=== PATIENT | female | born 1965 | race Hispanic/Latino ===

== ENCOUNTER 2025-01-15 12:05 | Inpatient (IN) | payer MEDICAID ==
[~2025-01-15] VITALS: Ht 157.5 cm; Wt 72.8 kg
--- NOTE | 2025-01-15 12:48 | ERN ---
General Chief Complaint: Tooth Ache/Pain Stated Complaint: TOOTHACHE Time Seen by MD: 12:08 Source: patient History of Present Illness Initial Comments PATIENT IS A 59-YEAR-OLD FEMALE COMING IN COMPLAINING OF RIGHT FACIAL PAIN. PATIENT IS A IS A RECENTLY SEEN BY DENTIST AND SENT IN DUE TO AN INFECTED MOLAR. Allergies: Coded Allergies: No Known Drug Allergies (Unverified Allergy, Unknown, 01/15/25) Past Medical History Past Medical History: Cancer, Diabetes-Type II, High Cholesterol, Hypertension Past Surgical History: Other Surgical History Other: LEFT NEPHRECTOMY ROS Dictation CONSTITUTIONAL: NO CHILLS, NO FEVER, NO WEAKNESS, NO DIAPHORESIS, NO MALAISE. HEAD/FACE: NO SIGNS OF TRAUMA. EENT: NO EYE PAIN, NO BLURRED VISION, NO TEARING, NO DOUBLE VISION, NO EAR PAIN, NO EAR DISCHARGE, NO NOSE PAIN, NO NASAL CONGESTION, NO THROAT PAIN, NO THROAT SWELLING, MOUTH PAIN. RESPIRATORY: NO COUGH, NO ORTHOPNEA, NO SOB, NO STRIDOR, NO WHEEZING. CARDIOVASCULAR: NO CHEST PAIN, NO EDEMA, NO PALPITATIONS, NO SYNCOPE. GASTROINTESTINAL/ABDOMINAL: NO ABDOMINAL PAIN, NO CONSTIPATION, NO DIARRHEA, NO NAUSEA, NO VOMITING. GENITOURINARY: NO ABNORMAL DISCHARGE, NO DYSURIA, NO FREQUENT URINATION, NO HEMATURIA. NO COMPLAINTS OF PAIN IN THE GENITALS. MUSCULOSKELETAL: NO BACK PAIN, NO GOUT, NO JOINT PAIN, NO JOINT SWELLING, NO MUSCLE PAIN, NO MUSCLE STIFFNESS, NO NECK PAIN. INTEGUMENTARY: NO CHANGE IN COLOR, NO CHANGE IN HAIR/NAILS, NO DRYNESS, NO LESION, NO LUMPS, NO RASH. NEUROLOGICAL/PSYCH: NO ANXIETY, NOT DEPRESSED, NO EMOTIONAL PROBLEM, NO HEADACHE, NO NUMBNESS, NO PRE-EXISTING DEFICIT, NO HISTORY OF SEIZURES, NO TREMORS, NO WEAKNESS. HEMATOLOGIC/LYMPHATIC: NOT ANEMIC, NO HISTORY OF BLOOD CLOTS, NO APPARENT BLEEDING, NO BRUISING, GLANDS NOT SWOLLEN. ALL SYSTEMS NEGATIVE, EXCEPT NOTED. Physical Exam Physical Exam Dictation VITAL SIGNS: REVIEWED. GENERAL APPEARANCE: ALERT, ORIENTED X3, NO ACUTE DISTRESS, OBESE. HEAD AND FACE: NON-TRAUMATIC. EYES: PERRL, PINK CONJUNCTIVAS, EYELID NO TRAUMA, ANTERIOR CHAMBER CLEAR. EARS: PINNAS INTACT AND NO SIGNS OF TRAUMA OR ERYTHEMA. EAR CANALS CLEAR AND NO DISCHARGE. TMS NO ERYTHEMA. NOSE: NO DISCHARGE, NO BLEEDING. OROPHARYNX: MOUTH NORMAL, TEETH 1. INFECTED, FRACTURED , TONGUE PINK. PHARYNX CLEAR, NO ERYTHEMA. TONSILS NO EXUDATES, NO ABSCESSES NOTED. MUCOUS MEMBRANE MOIST. NECK: SUPPLE, NON-TENDER, NO THYROMEGALY, NO MASSES, NO JVD, NO BRUITS. BREAST: DEFERRED. CHEST: NO TENDERNESS, NO CREPITUS, NO PARADOXICAL MOVEMENT, NO RETRACTIONS. LUNGS: CLEAR, WELL-VENTILATED, SYMMETRIC, NO RALES, NO WHEEZING, NO RHONCHI, NO STRIDOR, GOOD BREATH SOUNDS BILATERALLY. HEART: REGULAR RATE, REGULAR RHYTHM, NO MURMUR, NO GALLOPS. VASCULAR: NO PERIPHERAL EDEMA. ABDOMEN: SOFT, POSITIVE BOWEL SOUNDS, NONDISTENDED, NO GUARDING, NONTENDER, NO REBOUND, NO MASSES NO HEPATOMEGALY, NO SPLENOMEGALY, NO WHALEN'S SIGN, NO HERNIAS. RECTAL: DEFERRED. GENITAL: DEFERRED. NEUROLOGICAL: NORMAL SPEECH, GROSS MOTOR FUNCTION INTACT, GROSS SENSORY FU NCTION INTACT. MUSCULOSKELETAL: NECK NONTENDER, FULL RANGE OF MOTION, BACK NONTENDER, FULL RANGE OF MOTION. EXTREMITIES: NONTENDER, FULL RANGE OF MOTION. SKIN: COLOR PINK, DRY, NO TURGOR, NO RASH, NO LACERATIONS, NO ABRASIONS, NO CONTUSIONS. LYMPHATICS: DEFERRED. Results Laboratory and Microbiology Lab and Micro Result Laboratory Tests Test 01/15/25 12:48 White Blood Count 8.6 K/uL (4.8-10.8) Red Blood Count 3.71 MIL/uL (4.00-5.50) L Hemoglobin 12.0 g/dL (12.0-16.0) Hematocrit 35.4 % (36-48) L Mean Corpuscular Volume 95.4 fL (79-99) Mean Corpuscular Hemoglobin 32.3 pg (27.0-33.0) Mean Corpuscular Hemoglobin Concent 33.9 g/dL (32.0-36.0) Red Cell Distribution Width 13.6 % (11.0-15.5) Platelet Count 197 K/uL (130-400) Mean Platelet Volume 9.7 fL (7.5-10.5) Immature Granulocyte % (Auto) 0.2 % (0-1) Neutrophils (%) (Auto) 80.3 % (40.0-77.0) H Lymphocytes (%) (Auto) 12.9 % (21.0-51.0) L Monocytes (%) (Auto) 5.9 % (3.0-13.0) Eosinophils (%) (Auto) 0.5 % (0.0-8.0) Basophils (%) (Auto) 0.2 % (0.0-5.0) Neutrophils # (Auto) 6.9 K/uL (1.8-7.7) Lymphocytes # (Auto) 1.1 K/uL (1.0-4.8) Monocytes # (Auto) 0.5 K/uL (0.1-1.0) Eosinophils # (Auto) 0.04 K/uL (0.00-0.70) Basophils # (Auto) 0.02 K/uL (0.00-0.20) Absolute Immature Granulocyte (auto 0.02 K/uL (0-1) Nucleated Red Blood Cells 0.0 % (0.0-0.19) Sodium Level 135 mmol/L (136-145) L Potassium Level 4.1 mmol/L (3.5-5.1) Chloride Level 101 mmol/L (101-111) Carbon Dioxide Level 20 mmol/L (21-32) L Blood Urea Nitrogen 54 mg/dL (7-18) H Creatinine 3.6 mg/dL (0.5-1.0) H Glomerular Filtration Rate Calc 14 mL/min (>90) Random Glucose 270 mg/dL (70-105) H Total Calcium 8.6 mg/dL (8.5-10.1) Labs Reviewed?: Yes MDM MDM: DIFFERENTIAL DIAGNOSIS: PERIODONTAL DISEASE, TIERNEY, RATIONALE: TESTS CONSIDERED AND ORDERED SECONDARY TO SHARED DECISION MAKING INCLUDE: PREVIOUS OUTSIDE RECORDS REVIEWED: OLD ER VISITS. RISK OF COMPLICATION AND/OR MORBIDITY OR MORTALITY OF PATIENT MANAGEMENT: NONE MEDICATIONS-PER MEDICATION RECONCILIATION NEED FOR HOSPITALIZATION: PATIENT DOES MEET CRITERIA FOR HOSPITALIZATION. NEED FOR EMERGENCY MAJOR/MINOR SURGERY: NO THERE ARE NO SOCIAL CONCERNS WITH THIS PATIENT. PRESCRIPTION DRUG MANAGEMENT PRESCRIPTIONS WILL INCLUDE SYMPTOMATIC CARE PATIENT'S PRIOR EXTERNAL MEDICAL RECORDS FROM OTHER ER VISITS WERE REVIEWED BY ME INDICATED. PRIOR TESTING AND RESULTS FROM PREVIOUS VISITS WERE REVIEWED. PRIOR TESTS WERE TAKEN INTO ACCOUNT WITH MEDICAL DECISION MAKING AND RESOURCE UTILIZATION, INDEPENDENT HISTORIAN/HISTORIANS WERE USED TO OBTAIN COMPLETE MEDICAL HISTORY. I INDEPENDENTLY INTERPRETED THE TEST THAT WERE PERFORMED, RESULTS WERE REVIEWED BY ME AND CONSIDERED FINDINGS ON RADIOLOGY IF ORDERED. MEDICAL MANAGEMENT AND EXAMINATION INTERPRETATION DISCUSSIONS WERE HAD BY ME WITH OTHER QUALIFIED HEALTHCARE PROFESSIONALS INDICATED FOR THE PATIENT'S CARE. PATIENT WILL BE ADMITTED UNDER THE CARE OF HOSPITALIST GROUP. ED Course Orders Procedure Category Date Status Time Cbc With Differential LAB 01/15/25 Complete 12:13 Basic Metabolic Panel LAB 01/15/25 Complete 12:13 Methylprednisolone PHA 01/15/25 Complete Succ 125mg (Solu-Medr 13:00 Ketorolac PHA 01/15/25 Complete Tromethamine 30mg/Ml 13:00 Clindamycin Ivpb PHA 01/15/25 Complete 600mg/50ml (Cleocin 12:36 Pharmacy PHA 01/15/25 In Process Communication 13:30 Current Medications Medications (Trade) Dose Ordered Sig/Hilda Route PRN Reason Start Time Stop Time Status Last Admin Dose Admin Clindamycin HCl/ Dextrose 50 ml @ 100 mls/hr Q8H STAT IV 01/15/25 12:36 01/15/25 13:05 DC 01/15/25 12:53 Ketorolac Tromethamine (toRADol) 30 mg ONCE ONCE IVP 01/15/25 13:00 01/15/25 13:13 DC Methylprednisolone Sodium Succinate (Solu-medROL 125MG) 125 mg ONCE ONCE IVP 01/15/25 13:00 01/15/25 13:01 DC 01/15/25 12:53 Pharmacy Profile Note (Pharmacy Communication) 1 each ONCE MISC 01/15/25 13:30 01/15/25 19:00 01/15/25 13:24 Vital Signs Date Time Temp Pulse Resp B/P (MAP) Pulse Ox O2 Delivery O2 Flow Rate FiO2 01/15/25 12:18 98.2 68 16 146/78 98 Room Air* 0 21 01/15/25 12:07 98.2 68 16 146/78 97 Room Air 0 DX & DISP Disposition: Inpatient Decision to Admit Time: 14:16 Departure Impression: Primary Impression: TIERNEY (acute kidney injury) Additional Impression: Periodontal disease Condition: Stable MESFIN MOYA MD Jan 15, 2025 12:48
[2025-01-15] MEDS: CLINDAMYCIN IVPB 600MG/50ML 50 ML IV STA (12:53)
[2025-01-15 12:56] LABS: IMMATURE GRANULOCYTE ABSOLUTE 0.02 K/uL (0-1); NUCLEATED RED BLOOD CELLS 0.0 % (0.0-0.19); PLATELET COUNT (AUTO) 197 K/uL (130-400); RED BLOOD CELL COUNT(AUTO) 3.71 MIL/uL (4.00-5.50); RED CELL DISTRIBUTION WIDTH 13.6 % (11.0-15.5); WHITE BLOOD COUNT (AUTO) 8.6 K/uL (4.8-10.8)
[2025-01-15 13:08] LABS: CREATININE 3.6 mg/dL (0.5-1.0); GLOMERULAR FILTR. RATE CALC 14.0 mL/min (>90); GLUCOSE,RANDOM 270.0 mg/dL (70-105); SODIUM SERUM 135.0 mmol/L (136-145); UREA NITROGEN, BLOOD 54.0 mg/dL (7-18)
[2025-01-15] MEDS: PHARMACY COMMUNICATION MISC SCH (13:24)
[2025-01-15] MEDS ORDERED: DEXTROSE 50%-WATER 50 ML DISP.SYRIN IV PRN (14:30)
[2025-01-15] MEDS ORDERED: FAMOTIDINE 20MG VIAL IV PRN (14:30)
[2025-01-15] MEDS ORDERED: NITROGLYCERIN 0.4 MG SL TAB SL PRN (14:30)
[2025-01-15] MEDS ORDERED: PoTASSium chloRIDE 20MEQ ER 20 MEQ ERTAB PO PRN (14:30)
[2025-01-15] MEDS ORDERED: guaiFENesin-DM 200/20MG 10ML PO PRN (14:30)
[2025-01-15] MEDS ORDERED: GLUCAGON 1MG KIT 1 MG ML IM PRN (14:30)
[2025-01-15] MEDS ORDERED: LACTULOSE 20 GM/30 ML UDCUP PO PRN (14:30)
[2025-01-15] MEDS ORDERED: MAG/ALUM/SIMETH 30 ML UDCUP PO PRN (14:30)
--- NOTE | 2025-01-15 14:30 | NUR ---
PT PLACED IN TO -02
[2025-01-15] MEDS: CLINDAMYCIN IVPB 600MG/50ML 50 ML IV SCH (15:03)
[2025-01-15] MEDS: 0.9%NACL 1000ML 1,000 ML IV SCH (15:03)
--- NOTE | 2025-01-15 15:13 | HMCIMG ---
CHEST 1VW REASON: congestion COMPARISON: None. FINDINGS: Single view of the chest was obtained. Lungs are clear. There is moderate cardiomegaly.. There is no pulmonary vascular congestion. Mediastinum and bony thorax appear unremarkable. IMPRESSION: 1. Moderate global cardiomegaly. 2. No evidence of airspace consolidation or pulmonary venous congestion
--- NOTE | 2025-01-15 15:15 | NUR ---
DR. ALEXANDER AT BEDSIDE
[2025-01-15 15:21] LABS: % IRON SATURATION 13.9 % (22-44); IRON, SERUM 44.0 mcg/dL (50-170)
--- NOTE | 2025-01-15 15:34 | HMCIMG ---
CT MAXILLOFACIAL W/O CONTRAST CLINICAL HISTORY: peridontal infection COMPARISON: None TECHNIQUE: Thin axial images were obtained through the facial bones/orbits without the use of intravenous contrast. Coronal and sagittal reformatted images were also submitted for interpretation. CONTRAST: mL of Isovue FINDINGS: NASAL REGION: The nasal bones, frontal processes of the maxilla, and lamina papyracea are intact. The ethmoid air cells are clear. The nasal septum is not deviated. and the nasal spine is intact. ORBITS: The orbital awad, floor, roof and rims are intact. The globes are symmetric and intact. There is no dislocation of the lens. Extraocular muscles are symmetric. Retro-ocular soft tissues are clear. ZYGOMA: The zygomatic arch, inferior and lateral orbital rim, and lateral and anterior awad of the maxilla are intact. MAXILLARY REGION: The alveolar, pterygoid and palatine processes are intact. Maxillary sinuses demonstrate there is bilateral mucoperiosteal thickening or prominence of the right as compared to the left. The remaining paranasal sinuses the ethmoid sphenoid and frontal air cells are well aerated.. MANDIBLE: The symphysis, body and ramus are intact. Coronoid process and alveolar ridges are unremarkable in appearance. No dislocation or fracture of the condyles. SOFT TISSUES: There is no soft tissue swelling or subcutaneous emphysema. The included brain is unremarkable. Visualized portions of the cervical spine look unremarkable. IMPRESSION: Bilateral maxillary sinusitis more pronounced on the right as compared to the left with mucous periosteal thickening.
--- NOTE | 2025-01-15 15:41 | HP ---
[facility] HISTORY AND PHYSICAL Date of Service: Jan 15, 2025 Time of Service: 15:33 PCP:Dr Gavin Flores Admitting: , Dr Mehta, Allergies: No Allergy Information Available, No Known Drug Allergies HISTORY OF PRESENT ILLNESS: [ Patient is 59 years old female with a past medical history of kidney cancer, s/p left nephrectomy, diabetes, hypertension, hyperlipidemia, who came to emergency department with a complaint of right facial pain. Patient stated that recently she was seen by a dentist due to infected molar the pain is unbearable so patient decided to come to emergency department for further evaluation/recommendations. During examination patient was found to be in acute kidney disease. When asked if patient ever follow up with processing assistant patient stated that she did know that she had some kidney problems which she never follow up with anyone outpatient. Most recent vital signs temperature 98.2 pulse 60 respirations 16 blood pressure 146/78 patient is on room air satting 98%. WBC 8.6 hemoglobin 12 hematocrit 35.4 platelets 197. Sodium 135 potassium 4.1 CO2 20 BUN 54 creatinine 3.6 GFR 14 iron 42 folic acid more than 20 chest x-ray showed moderate global cardiomegaly no evidence of consolidation or pulmonary venous congestion. CT maxillofacial was performed pending results. We also order ultrasound renal to evaluate for TIERNEY versus CKD . Patient will be admitted under hospitalist for further evaluation/recommendation. Story Analyst will be consulted for TIERNEY. REVIEW OF SYSTEMS CONSTITUTIONAL: Denies fevers, chills, or night sweats. No unintentional weight loss reported. NEUROLOGICAL: Denies headache, amaurosis fugax, motor weakness, sensory deficit, vertigo/spinning sensation, gait abnormalities, or tremors. ENT: No hearing loss, otalgia, otorrhea, rhinitis, rhinorrhea, hoarseness, or sore throat. Complains of periodontal pain/infection CARDIOVASCULAR: Denies any exertional angina, dyspnea on exertion, orthopnea, paroxysmal nocturnal dyspnea, palpitations, life-threatening arrhythmias, claudication. PULMONARY: Denies any shortness of breath, cough, phlegm/sputum, hemoptysis, pleuritic chest pain. SLEEP: Denies morning headaches, daytime somnolence or napping. Denies difficulty falling asleep, staying asleep, waking from sleep. Denies knowledge of snoring. GASTROINTESTINAL: Denies any type of dysphagia to either liquids or solids. Denies nausea, vomiting, pyrosis, early satiety, abdominal pain, diarrhea, con stipation, or changes in stool consistency or caliber. Denies coffee-ground emesis, hematemesis, hematochezia, or melanotic stools. GENITOURINARY: Denies frequency, urgency, nocturia, hematuria or incontinence (Storage/Irritative symptoms.) Low urinary stream, straining to void, urinary intermittency or hesitancy, splitting of the voiding stream, terminal dribbling. ENDOCRINOLOGIC: Denies polyuria, polydipsia, polyphagia or heat/cold intolerances. HEMATOLOGIC: Denies thrombophilia/previous clots, or coagulopathy/bleeding disorders. ONCOLOGIC: Denies personal history of malignancy. DERMATOLOGIC: Denies rashes or pruritus. PSYCHIATRIC: Denies any suicidal or homicidal ideation. Denies hallucinations. PAST MEDICAL HISTORY: [Diabetes, hyperlipidemia, hypertension, kidney cancer ] PAST SURGICAL HISTORY: [ Left nephrectomy ] PAST SOCIAL HISTORY: [ Denies drug illicit. Denies any smoking. Patient stated drinks occasionally wine] FAMILY HISTORY: [ Patient recently in July moved from [facility]. Patient is independent lives at home with the . Patient uses walker for longer distance ] Coded Allergies: No Known Drug Allergies (Unverified Allergy, Unknown, 01/15/25) PHYSICAL EXAM GENERAL APPEARANCE: The patient is awake, alert, and oriented, in no acute cardiopulmonary distress. NEUROLOGICAL: Cranial nerves II-XII grossly intact. Motor is 5/5 in bilateral upper and lower extremities proximal to distal. No sensory deficits. HEENT: Face is symmetric. Pupils are equal and reactive. Extraocular movements are intact. NECK: Supple. No JVD. No thyromegaly. No submental, submandibular, pre- /postauricular, occipital or supraclavicular lymphadenopathy. CHEST: Normal chest expansion. No Telemetry. LUNGS: Absence of any rales, rhonchi or any wheezing. CARDIOVASCULAR: Regular. S1 and S2 normal. No appreciable rubs, murmurs or gallops. ABDOMEN: Soft, nontender, and nondistended. There is no rebound, voluntary guarding, or rigidity. : Deferred. No Davis. EXTREMITIES: Non-edematous and not cyanotic. No clubbing. Good capillary refill. SKIN: No skin breakdown. Vital Sign (Last 24 Hours) 01/15/25 12:18 Temp 98.2 Pulse 68 Resp 16 B/P (MAP) 146/78 Pulse Ox 98 O2 Delivery Room Air* O2 Flow Rate 0 FiO2 21 LABS: Laboratory: Test 01/15/25 12:48 Range/Units White Blood Count 8.6 4.8-10.8 K/uL Red Blood Count 3.71 L 4.00-5.50 MIL/uL Hemoglobin 12.0 12.0-16.0 g/dL Hematocrit 35.4 L 36-48 % Mean Corpuscular Volume 95.4 79-99 fL Mean Corpuscular Hemoglobin 32.3 27.0-33.0 pg Mean Corpuscular Hemoglobin Concent 33.9 32.0-36.0 g/dL Red Cell Distribution Width 13.6 11.0-15.5 % Platelet Count 197 130-400 K/uL Mean Platelet Volume 9.7 7.5-10.5 fL Immature Granulocyte % (Auto) 0.2 0-1 % Neutrophils (%) (Auto) 80.3 H 40.0-77.0 % Lymphocytes (%) (Auto) 12.9 L 21.0-51.0 % Monocytes (%) (Auto) 5.9 3.0-13.0 % Eosinophils (%) (Auto) 0.5 0.0-8.0 % Basophils (%) (Auto) 0.2 0.0-5.0 % Neutrophils # (Auto) 6.9 1.8-7.7 K/uL Lymphocytes # (Auto) 1.1 1.0-4.8 K/uL Monocytes # (Auto) 0.5 0.1-1.0 K/uL Eosinophils # (Auto) 0.04 0.00-0.70 K/uL Basophils # (Auto) 0.02 0.00-0.20 K/uL Absolute Immature Granulocyte (auto 0.02 0-1 K/uL Nucleated Red Blood Cells 0.0 0.0-0.19 % Sodium Level 135 L 136-145 mmol/L Potassium Level 4.1 3.5-5.1 mmol/L Chloride Level 101 101-111 mmol/L Carbon Dioxide Level 20 L 21-32 mmol/L Blood Urea Nitrogen 54 H 7-18 mg/dL Creatinine 3.6 H 0.5-1.0 mg/dL Glomerular Filtration Rate Calc 14 >90 mL/min Random Glucose 270 H 70-105 mg/dL Total Calcium 8.6 8.5-10.1 mg/dL Iron Level 44 L 50-170 mcg/dL Total Iron Binding Capacity 316 250-450 mcg/dL Percent Iron Saturation 13.9 L 22-44 % Folic Acid (LAB) > 20.00 H 2-20 ng/mL Current Medications Medications (Trade) Dose Ordered Sig/Hilda Route PRN Reason Start Time Stop Time Status Last Admin Dose Admin Acetaminophen (TYLenol 325MG TAB) 650 mg Q4H PRN PO MILD PAIN (1-3) 01/15/25 14:30 02/14/25 14:29 Acetaminophen (TYLenol 325MG TAB) 650 mg Q6H PRN PO MILD PAIN (1-3) 01/15/25 14:30 01/15/25 14:26 DC Acetaminophen (TYLenol 325MG TAB) 650 mg Q6H PRN PO TEMPERATURE GREATER THAN 101.5 01/15/25 14:30 02/14/25 14:29 Al Hydroxide/Mg Hydroxide (MAALox PLUS 30ML) 30 ml Q6H PRN PO INDIGESTION 01/15/25 14:30 02/14/25 14:29 Clindamycin HCl/ Dextrose 50 ml @ 100 mls/hr Q8H IV 01/15/25 14:30 01/25/25 14:29 01/15/25 15:03 100 MLS/HR Clindamycin HCl/ Dextrose 50 ml @ 100 mls/hr Q8H STAT IV 01/15/25 12:36 01/15/25 13:05 DC 01/15/25 12:53 100 MLS/HR Dextrose (D50w) 50 ml AD PRN IV HYPOGLYCEMIA PROTOCOL 01/15/25 14:30 02/14/25 14:29 Diphenhydramine HCl (BENAdryl INJ) 25 mg Q6H PRN IV SEVERE ITCHING/RASH 01/15/25 14:30 02/14/25 14:29 Famotidine (Pepcid 20mg Vial) 20 mg BID PRN IV NAUSEA/VOMITING 01/15/25 14:30 01/15/25 14:26 DC Famotidine (Pepcid 20mg Vial) 20 mg Q48H IV 01/15/25 21:00 02/14/25 20:59 Glucagon (Glucagon 1mg Kit) 1 mg AD PRN IM HYPOGLYCEMIA PROTOCOL 01/15/25 14:30 02/14/25 14:29 Guaifenesin/ Dextromethorphan (RobiTUSSin DM 200/20MG 10ML) 10 ml Q4H PRN PO COUGH 01/15/25 14:30 02/14/25 14:29 Heparin Sodium (Porcine) (HEParin 5,000 UNIT VIAL) 5,000 unit BID SQ 01/15/25 21:00 02/14/25 20:59 Hydralazine HCl (APRESOLine 20MG INJ) 10 mg Q6H PRN IV For:SBP above 160;DBP above 90 01/15/25 14:30 02/14/25 14:29 Ibuprofen (moTRIN) 600 mg Q8H PRN PO MODERATE PAIN (4-6) 01/15/25 14:30 02/14/25 14:29 Insulin Human Regular (humuLIN R 100 UNIT/ML 3ML) INSULIN SLIDING SCAL... ACHS SQ 01/15/25 16:30 02/14/25 16:29 Ketorolac Tromethamine (toRADol) 15 mg Q8H PRN IV MODERATE PAIN (4-6) 01/15/25 14:30 01/15/25 14:29 DC Lactulose (Constulose 20gm/ 30ml Udcup) 20 gm BID PRN PO CONSTIPATION 01/15/25 14:30 02/14/25 14:29 Magnesium Sulfate 50 ml @ 0 mls/hr PROTOCOL PRN IV other 01/15/25 14:30 02/14/25 14:29 Morphine Sulfate (morPHINE 4MG SYG) 1 mg Q4H PRN IVP SEVERE PAIN (7-10) 01/15/25 15:00 01/22/25 14:59 Nitroglycerin (Nitrostat) 0.4 mg PROTOCOL PRN SL CHEST PAIN 01/15/25 14:30 02/14/25 14:29 Ondansetron HCl (zoFRAN 4MG INJ) 4 mg Q6H PRN IV NAUSEA/VOMITING 01/15/25 14:30 02/14/25 14:29 Pharmacy Profile Note (Pharmacy Communication) 1 each ONCE MISC 01/15/25 13:30 01/15/25 19:00 01/15/25 13:24 1 EACH Potassium Chloride 100 ml @ 100 mls/hr AD PRN IV POTASSIUM PROTOCOL 01/15/25 14:30 02/14/25 14:29 Potassium Chloride (K-Dur/Klor-Con 20meq) 10 meq AD PRN PO POTASSIUM PROTOCOL 01/15/25 14:30 02/14/25 14:29 Potassium Chloride (KCl 10% Elixir 20meq/15ml) 10 meq AD PRN PO POTASSIUM PROTOCOL 01/15/25 14:30 02/14/25 14:29 Sodium Chloride 1,000 ml @ 100 mls/hr Q10H IV 01/15/25 14:30 02/14/25 14:29 01/15/25 15:03 100 MLS/HR Zolpidem Tartrate (AmbIEN) 5 mg HS PRN PO INSOMNIA 01/15/25 14:30 02/14/25 14:29 DIAGNOSTICS / RADIOLOGY: [ ] ASSESSMENT: [ Acute kidney injury POA Periodontal inflammatory patient's/infection POA History of kidney cancer s/p left nephrectomy Uncontrolled diabetes mellitus type 2 with hypoglycemia Hyperlipidemia, POA Hypertension POA ] PLAN: [ Admit to medical-surgical floor Consult processing assistant Start clindamycin for a dental infection Normal saline at 100 mL/hour A.m. labs Chest x-ray showed moderate cardiomegaly CT maxillofacial pending Ultrasound renal pending PRN medication Initiate hyper or hypokalemia protocol Initiate hyper hypoglycemia protocol Hypomagnesemia protocol Urine culture Urinalysis pending Blood culture pending Consistent carbs 60 to 75 g PT eval request Case management for evaluation] ADVANCED CARE PLANNING 1. Which of the following were discussed? Hospice Care - Yes / No Therapeutic options - Yes / No Advance Directives - Yes / No Other discussions - 2. Discussed with who? Patient 3. Voluntary nature of this service was explained to the patient? Yes / No 4. Amount of time spent - _ more than 35 minutes 5. Reviewed by Physician? (if this service was performed by NPP) Yes / No ATTESTATION BY PHYSICIAN I have seen and examined the patient. I reviewed the documentation, medical decision making, and treatment plan as noted by the mid-level provider above. I agree with the findings and plan of care. PARISA MEHTA MD, KATARZYNA B STORE CLERK CHECKER Jan 15, 2025 15:41
--- NOTE | 2025-01-15 16:17 | HMCIMG ---
US RENAL SONOGRAM Indication: jason Technique: Renal ultrasound was performed by a anodiser and reviewed by a radiologist. Findings: Right Kidney: Measures 11.0 x 7.0 x 7.0 cm. Unremarkable sonographic appearance without focal lesions or hydronephrosis. Left Kidney: Left kidney is obscured and not seen due to overlying bowel gas and large body habitus. Urinary bladder: Unremarkable. The prevoid volume is 140.05 cc. The post void residual is not obtained. The urinary bladder wall thickness is 0.28 cm. Impression: There is limited due to left kidney not seen The remaining study otherwise appears to be normal.
[2025-01-15 16:24] LABS: ABG BASE EXCESS -5.3 mmol/L (-2.0-3.0); ABG HCO3 18.8 mmol/L (21.0-28.0); ABG OXYGEN SATURATION 94.6 % (94.0-98.0); ABG PCO2 32 mmHg (32-45); ABG PH 7.385 (7.350-7.450); CARBON MONOXIDE 0.7 % (0.5-1.5); DEVICE COMMENT RR RA; PO2, ARTERIAL BG 76.9 mmHg (83.0-108.0); TEMPERATURE, CELSIUS BG 37.0 CELSIUS (35.5-37.0)
--- NOTE | 2025-01-15 16:58 | NUR ---
DCP: HOME Pt lives with Russ Edmondson [phone], pt is on SSD. Pt has provider 25hrs week to assist her with ADLS, home management, and meal prep. Pt uses a walker with seat, shower chair and bsc. No HH or HD services. PCP is Gavin Lester and uses [facility] for rx needs. Pt denies need for snf was to return home with family. Addendum: 01/15/25 at 1703 by ESTEFANY MURPHY SS Amended: Links added.
[2025-01-15 19:32] LABS: COVID19 (SARS ANTIGEN RAPID) PRESUMPTIVE NEGATIVE (NEGATIVE); INFLUENZA TYPE A Negative For Type A (NEGATIVE); INFLUENZA TYPE B Negative For Type B (NEGATIVE)
[2025-01-15] MEDS: FAMOTIDINE 20MG VIAL IV SCH (20:32)
[2025-01-15 20:50] LABS: APPEARANCE,URINE CLEAR (CLEAR); GLUCOSE, URINE (UA) >=1000 mg/dL (NEGATIVE); LEUKOCYTE ESTERASE ,URINE NEGATIVE Leu/uL (NEGATIVE); NITRATE,URINE NEGATIVE (NEGATIVE); OCCULT BLOOD,URINE SMALL (NEGATIVE)
[2025-01-15 20:52] LABS: SQUAMOUS EPITHELIAL CELL,UR RARE /HPF (0-2)
[2025-01-15 21:50] VITALS: O2SAT 97
--- NOTE | 2025-01-15 22:00 | NUR ---
ADMISSION NOTE RECEIVED REPORT FROM ALEXIS LOPEZ. PATIENT ALERT, ORIENTED, AND ABLE TO MAKE NEEDS KNOWN. HOME MEDICATIONS RECONCILED WITH THE PATIENT. PATIENT INSTRUCTED TO SEND HOME MEDICATIONS BACK WITH FAMILY AND NOT TO TAKE HOME SUPPLY. PATIENT ORIENTED TO CALL LIGHT, UNIT FALL POLICIES, AND CALL LIGHT LEFT IN REACH OF PATIENT.
[2025-01-15] MEDS ORDERED: ROSU40TA88 PO (22:37)
[2025-01-15] MEDS ORDERED: AMLO-258 PO (22:37)
[2025-01-15] MEDS ORDERED: LOSA50TA64 PO (22:37)
[2025-01-15] MEDS ORDERED: FURO40TA5 PO (22:37)
[2025-01-15] MEDS ORDERED: FINE10TA PO (22:37)
[2025-01-15] MEDS ORDERED: AMIO200T73 PO (22:37)
[2025-01-15] MEDS ORDERED: CLOP75TA32 PO (22:37)
[2025-01-15] MEDS ORDERED: EMPA10TA PO (22:37)
[2025-01-15] MEDS ORDERED: ERGO500093 PO (22:39)
[2025-01-15] MEDS ORDERED: ISOS10TA96 PO (22:39)
[2025-01-15] MEDS ORDERED: METO-408 PO (22:41)
[2025-01-15] MEDS ORDERED: NITR0.4T50 SL (22:42)
[2025-01-16] VITALS (7 sets, daily range): BP systolic 133–156; BP diastolic 80–94; PULSE 72–80; RESP 16–20; TEMP 97.7–98.5; O2SAT 97
[2025-01-16] MEDS: CLINDAMYCIN IVPB 600MG/50ML 50 ML IV SCH (02:32)
[2025-01-16 03:49] LABS: IMMATURE GRANULOCYTE ABSOLUTE 0.01 K/uL (0-1); NUCLEATED RED BLOOD CELLS 0.0 % (0.0-0.19); PLATELET COUNT (AUTO) 180 K/uL (130-400); RED BLOOD CELL COUNT(AUTO) 3.60 MIL/uL (4.00-5.50); RED CELL DISTRIBUTION WIDTH 13.5 % (11.0-15.5); WHITE BLOOD COUNT (AUTO) 5.9 K/uL (4.8-10.8)
[2025-01-16 04:16] LABS: % IRON SATURATION 16.3 % (22-44); ASPARTATE AMINOTRANSFERASE 14 U/L (10-37); CREATINE KINASE, TOTAL 58 U/L (21-232); CREATININE 3.1 mg/dL (0.5-1.0); GLOMERULAR FILTR. RATE CALC 16 mL/min (>90); GLUCOSE,RANDOM 199 mg/dL (70-105); IRON, SERUM 50.0 mcg/dL (50-170); PHOSPHORUS 4.1 mg/dL (2.5-4.9); SODIUM SERUM 137 mmol/L (136-145); TOTAL PROTEIN, SERUM 8.0 g/dL (6.0-8.3); UREA NITROGEN, BLOOD 57 mg/dL (7-18)
[2025-01-16 04:24] LABS: WBC MORPHOLOGY CONSISTENT W/DIFF
[2025-01-16] MEDS: Vitamin B Complex/Vit C/Folic Acid PO SCH (08:18)
--- NOTE | 2025-01-16 11:16 | PN ---
[facility] PROGRESS NOTE Date of Service: Jan 16, 2025 Time of Service: 11:07 Attending doctor Josr SUBJECTIVE: [ 01/15 Patient is 59 years old female with a past medical history of kidney cancer, s/p left nephrectomy, diabetes, hypertension, hyperlipidemia, who came to emergency department with a complaint of right facial pain. Patient stated that recently she was seen by a dentist due to infected molar the pain is unbearable so patient decided to come to emergency department for further evaluation/recommendations. During examination patient was found to be in acute kidney disease. When asked if patient ever follow up with cable former patient stated that she did know that she had some kidney problems which she never follow up with anyone outpatient. Most recent vital signs temperature 98.2 pulse 60 respirations 16 blood pressure 146/78 patient is on room air satting 98%. WBC 8.6 hemoglobin 12 hematocrit 35.4 platelets 197. Sodium 135 potassium 4.1 CO2 20 BUN 54 creatinine 3.6 GFR 14 iron 42 folic acid more than 20 chest x-ray showed moderate global cardiomegaly no evidence of consolidation or pulmonary venous congestion. CT maxillofacial was performed pending results. We also order ultrasound renal to evaluate for TIERNEY versus CKD . Patient will be admitted under hospitalist for further evaluation/recommendation. [facility] will be consulted for TIERNEY. 01/16 patient was seen by nurse practitioner and physician during rounding in [id number], comfortably lying in the bed. Patient's creatinine has improved today is at 3.1 BUN 57 and GFR 16. We are still pending further recommendations/plan from the cable former. Home medication were reconciled by SHAMPOO TECHNICIAN. Patient's BNP is 847. Based on home medication patient normally is on furosemide 40 mg b.i.d.. We will order 2D echo. Chest x-ray showed moderate cardiomegaly. CT maxilla facial shows sinusitis. Renal ultrasound there is limited due to left kidney not seen. As per patient she had left nephrectomy done in [place]. We will continue to monitor patient in the meantime. A.m. labs] REVIEW OF SYSTEMS CONSTITUTIONAL: Denies fevers, chills, or night sweats. No unintentional weight loss reported. NEUROLOGICAL: Denies headache, amaurosis fugax, motor weakness, sensory deficit, vertigo/spinning sensation, gait abnormalities, or tremors. ENT: No hearing loss, otalgia, otorrhea, rhinitis, rhinorrhea, hoarseness, or sore throat. Complains of periodontal pain/infection CARDIOVASCULAR: Denies any exertional angina, dyspnea on exertion, orthopnea, paroxysmal nocturnal dyspnea, palpitations, life-threatening arrhythmias, claudication. PULMONARY: Denies any shortness of breath, cough, phlegm/sputum, hemoptysis, pleuritic chest pain. SLEEP: Denies morning headaches, daytime somnolence or napping. Denies difficulty falling asleep, staying asleep, waking from sleep. Denies knowledge of snoring. GASTROINTESTINAL: Denies any type of dysphagia to either liquids or solids. Denies nausea, vomiting, pyrosis, early satiety, abdominal pain, diarrhea, constipation, or changes in stool consistency or caliber. Denies coffee-ground emesis, hematemesis, hematochezia, or melanotic stools. GENITOURINARY: Denies frequency, urgency, nocturia, hematuria or incontinence (Storage/Irritative symptoms.) Low urinary stream, straining to void, urinary intermittency or hesitancy, splitting of the voiding stream, terminal dribbling. ENDOCRINOLOGIC: Denies polyuria, polydipsia, polyphagia or heat/cold intolerances. HEMATOLOGIC: Denies thrombophilia/previous clots, or coagulopathy/bleeding disorders. ONCOLOGIC: Denies personal history of malignancy. DERMATOLOGIC: Denies rashes or pruritus. PSYCHIATRIC: Denies any suicidal or homicidal ideation. Denies hallucinations. PHYSICAL EXAM GENERAL APPEARANCE: The patient is awake, alert, and oriented, in no acute cardiopulmonary distress. NEUROLOGICAL: Cranial nerves II-XII grossly intact. Motor is 5/5 in bilateral upper and lower extremities proximal to distal. No sensory deficits. HEENT: Face is symmetric. Pupils are equal and reactive. Extraocular movements are intact. NECK: Supple. No JVD. No thyromegaly. No submental, submandibular, pre-/postauricular, occipital or supraclavicular lymphadenopathy. CHEST: Normal chest expansion. No Telemetry. LUNGS: Absence of any rales, rhonchi or any wheezing. CARDIOVASCULAR: Regular. S1 and S2 normal. No appreciable rubs, murmurs or gallops. ABDOMEN: Soft, nontender, and nondistended. There is no rebound, voluntary guarding, or rigidity. : Deferred. No Davis. EXTREMITIES: Non-edematous and not cyanotic. No clubbing. Good capillary refill. SKIN: No skin breakdown. Vital Signs (last 8hr) Date Time Temp Pulse Resp B/P (MAP) Pulse Ox O2 Delivery O2 Flow Rate FiO2 01/16/25 08:00 97.7 79 16 156/94 95 Room Air 01/16/25 08:00 Room Air* 0 21 01/16/25 04:07 98.2 72 16 148/86 Room Air 0.0 21 LABS: Laboratory: Test 01/16/25 05:12 01/16/25 03:39 01/15/25 20:34 01/15/25 17:41 Range/Units Whole Blood Glucose 158 H 70-110 MG/DL White Blood Count 5.9 # 4.8-10.8 K/uL Red Blood Count 3.60 L 4.00-5.50 MIL/uL Hemoglobin 11.8 L 12.0-16.0 g/dL Hematocrit 34.2 L 36-48 % Mean Corpuscular Volume 95.0 79-99 fL Mean Corpuscular Hemoglobin 32.8 27.0-33.0 pg Mean Corpuscular Hemoglobin Concent 34.5 32.0-36.0 g/dL Red Cell Distribution Width 13.5 11.0-15.5 % Platelet Count 180 130-400 K/uL Mean Platelet Volume 9.9 7.5-10.5 fL Immature Granulocyte % (Auto) 0.2 0-1 % Neutrophils (%) (Auto) 88.5 H 40.0-77.0 % Lymphocytes (%) (Auto) 9.8 L 21.0-51.0 % Monocytes (%) (Auto) 1.5 L 3.0-13.0 % Eosinophils (%) (Auto) 0.0 0.0-8.0 % Basophils (%) (Auto) 0.0 0.0-5.0 % Neutrophils # (Auto) 5.2 1.8-7.7 K/uL Lymphocytes # (Auto) 0.6 L 1.0-4.8 K/uL Monocytes # (Auto) 0.1 0.1-1.0 K/uL Eosinophils # (Auto) 0.00 0.00-0.70 K/uL Basophils # (Auto) 0.00 0.00-0.20 K/uL Absolute Immature Granulocyte (auto 0.01 0-1 K/uL Nucleated Red Blood Cells 0.0 0.0-0.19 % White Cell Morphology Comment CONSISTENT W/DIFF Sodium Level 137 136-145 mmol/L Potassium Level 4.2 3.5-5.1 mmol/L Chloride Level 104 101-111 mmol/L Carbon Dioxide Level 18 L 21-32 mmol/L Blood Urea Nitrogen 57 H 7-18 mg/dL Creatinine 3.1 H 0.5-1.0 mg/dL Glomerular Filtration Rate Calc 16 >90 mL/min Random Glucose 199 H 70-105 mg/dL Hemoglobin A1c 8.1 H 4.0-6.0 % Estimated Average Glucose (eAG) 186 H 70-126 mg/dL Lactic Acid Level 1.2 0.8-2.5 mmol/L Uric Acid 8.7 H 2.6-7.2 mg/dL Total Calcium 8.5 8.5-10.1 mg/dL Phosphorus Level 4.1 2.5-4.9 mg/dL Magnesium Level 2.30 1.80-2.40 mg/dL Iron Level 50 50-170 mcg/dL Total Iron Binding Capacity 306 250-450 mcg/dL Percent Iron Saturation 16.3 L 22-44 % Ferritin 129 15-150 ng/mL Total Bilirubin 0.3 0.2-1.0 mg/dL Direct Bilirubin 0.1 0.0-0.3 mg/dL Aspartate Amino Transf (AST/SGOT) 14 10-37 U/L Alanine Aminotransferase (ALT/SGPT) 20 12-78 U/L Alkaline Phosphatase 207 H 50-136 U/L Ammonia < 10 L 11-32 umol/L Total Creatine Kinase 58 21-232 U/L B-Type Natriuretic Peptide 847 H 0-100 pg/mL Total Protein 8.0 6.0-8.3 g/dL Albumin 3.1 L 3.5-5.0 g/dL Amylase Level 88 25-115 U/L Lipase 67 16-77 U/L Procalcitonin 0.07 0.05-0.5 ng/mL Thyroid Stimulating Hormone (TSH) 0.73 0.36-3.74 uIU/mL Free Thyroxine (T4) Direct 1.29 0.76-1.46 ng/dL Free Triiodothyronine (T3) pg/mL 1.34 L 2.18-3.98 pg/mL Urine Color LIGHT-YELLOW YELLOW Urine Appearance CLEAR CLEAR Urine pH 6.0 5.0-8.0 Urine Specific [place] 1.018 1.001-1.031 Urine Protein 100 H NEGATIVE mg/dL Urine Glucose (UA) >=1000 H NEGATIVE mg/dL Urine Ketones NEGATIVE NEGATIVE mg/dL Urine Occult Blood SMALL H NEGATIVE Urine Nitrate NEGATIVE NEGATIVE Urine Bilirubin NEGATIVE NEGATIVE mg/dL Urine Urobilinogen 0.2 0.2-1.0 mg/dL Urine Leukocyte Esterase NEGATIVE NEGATIVE Guzman/uL Urine RBC 6-10 H 0-1 /HPF Urine WBC 6-10 H 0-1 /HPF Urine Squamous Epithelial Cells RARE 0-2 /HPF Urine Bacteria RARE None Seen /HPF Influenza Type A Antigen Negative For Type A NEGATIVE Influenza Type B Antigen Negative For Type B NEGATIVE SARS-CoV-2 Antigen (Rapid) PRESUMPTIVE NEGATIVE NEGATIVE Test 01/15/25 16:22 01/15/25 12:48 Range/Units Blood Gas Specimen Type Arterial Arterial Blood pH 7.385 7.350-7.450 Arterial Blood Partial Pressure CO2 32 32-45 mmHg Arterial Blood Partial Pressure O2 76.9 L 83.0-108.0 mmHg Arterial Blood HCO3 18.8 L 21.0-28.0 mmol/L Arterial Blood Oxygen Saturation 94.6 94.0-98.0 % Arterial Blood Base Excess -5.3 L -2.0-3.0 mmol/L Hemoglobin (Blood Gas) 12.9 12.0-16.0 g/dL Sodium (Blood Gas) 139 136-145 MMOL/L Bedside Potassium (Blood Gas) 4.6 H 3.4-4.5 MMOL/L Bedside Chloride (Blood Gas) 104 98-107 MMOL/L Bedside Glucose (Blood Gas) 219 H 65-95 MG/DL Bedside Ionized Calcium (Blood Gas) 1.20 1.15-1.33 MMOL/L Bedside Lactic Acid (Blood Gas) 1.15 H 0.36-0.75 MMOL/L Blood Gas Temperature 37.0 35.5-37.0 CELSIUS FiO2 21.0 % Blood Gas Specimen Comment RR RA Folic Acid (LAB) > 20.00 H 2-20 ng/mL Current Medications Medications (Trade) Dose Ordered Sig/Hilda Route PRN Reason Start Time Stop Time Status Last Admin Dose Admin Acetaminophen (TYLenol 325MG TAB) 650 mg Q4H PRN PO MILD PAIN (1-3) 01/15/25 14:30 02/14/25 14:29 01/16/25 05:48 650 MG Acetaminophen (TYLenol 325MG TAB) 650 mg Q6H PRN PO MILD PAIN (1-3) 01/15/25 14:30 01/15/25 14:26 DC Acetaminophen (TYLenol 325MG TAB) 650 mg Q6H PRN PO TEMPERATURE GREATER THAN 101.5 01/15/25 14:30 02/14/25 14:29 Al Hydroxide/Mg Hydroxide (MAALox PLUS 30ML) 30 ml Q6H PRN PO INDIGESTION 01/15/25 14:30 02/14/25 14:29 Clindamycin HCl/ Dextrose 50 ml @ 100 mls/hr Q8H IV 01/15/25 14:30 01/15/25 22:29 DC 01/15/25 15:03 100 MLS/HR Clindamycin HCl/ Dextrose 50 ml @ 100 mls/hr Q8H IV 01/16/25 02:00 01/26/25 01:59 01/16/25 08:18 100 MLS/HR Clindamycin HCl/ Dextrose 50 ml @ 100 mls/hr Q8H STAT IV 01/15/25 12:36 01/15/25 13:05 DC 01/15/25 12:53 100 MLS/HR Dextrose (D50w) 50 ml AD PRN IV HYPOGLYCEMIA PROTOCOL 01/15/25 14:30 02/14/25 14:29 Diphenhydramine HCl (BENAdryl INJ) 25 mg Q6H PRN IV SEVERE ITCHING/RASH 01/15/25 14:30 02/14/25 14:29 Famotidine (Pepcid 20mg Vial) 20 mg BID PRN IV NAUSEA/VOMITING 01/15/25 14:30 01/15/25 14:26 DC Famotidine (Pepcid 20mg Vial) 20 mg Q48H IV 01/15/25 21:00 02/14/25 20:59 01/15/25 20:32 20 MG Glucagon (Glucagon 1mg Kit) 1 mg AD PRN IM HYPOGLYCEMIA PROTOCOL 01/15/25 14:30 02/14/25 14:29 Guaifenesin/ Dextromethorphan (RobiTUSSin DM 200/20MG 10ML) 10 ml Q4H PRN PO COUGH 01/15/25 14:30 02/14/25 14:29 Heparin Sodium (Porcine) (HEParin 5,000 UNIT VIAL) 5,000 unit BID SQ 01/15/25 21:00 02/14/25 20:59 01/16/25 08:24 5,000 UNIT Hydralazine HCl (APRESOLine 20MG INJ) 10 mg Q6H PRN IV For:SBP above 160;DBP above 90 01/15/25 14:30 02/14/25 14:29 Ibuprofen (moTRIN) 600 mg Q8H PRN PO MODERATE PAIN (4-6) 01/15/25 14:30 02/14/25 14:29 Insulin Human Regular (humuLIN R 100 UNIT/ML 3ML) INSULIN SLIDING SCAL... ACHS SQ 01/15/25 16:30 02/14/25 16:29 01/15/25 21:26 14 UNIT Ketorolac Tromethamine (toRADol) 15 mg Q8H PRN IV MODERATE PAIN (4-6) 01/15/25 14:30 01/15/25 14:29 DC Lactulose (Constulose 20gm/ 30ml Udcup) 20 gm BID PRN PO CONSTIPATION 01/15/25 14:30 02/14/25 14:29 Magnesium Sulfate 50 ml @ 0 mls/hr PROTOCOL PRN IV other 01/15/25 14:30 02/14/25 14:29 Morphine Sulfate (morPHINE 4MG SYG) 1 mg Q4H PRN IVP SEVERE PAIN (7-10) 01/15/25 15:00 01/22/25 14:59 Nitroglycerin (Nitrostat) 0.4 mg PROTOCOL PRN SL CHEST PAIN 01/15/25 14:30 02/14/25 14:29 Ondansetron HCl (zoFRAN 4MG INJ) 4 mg Q6H PRN IV NAUSEA/VOMITING 01/15/25 14:30 02/14/25 14:29 Pharmacy Profile Note (Pharmacy Communication) 1 each ONCE MISC 01/15/25 13:30 01/15/25 19:00 DC 01/15/25 13:24 1 EACH Potassium Chloride 100 ml @ 100 mls/hr AD PRN IV POTASSIUM PROTOCOL 01/15/25 14:30 02/14/25 14:29 Potassium Chloride (K-Dur 10meq Sr Tab) 10 meq AD PRN PO POTASSIUM PROTOCOL 01/16/25 10:30 02/14/25 14:29 Potassium Chloride (K-Dur/Klor-Con 20meq) 10 meq AD PRN PO POTASSIUM PROTOCOL 01/15/25 14:30 01/16/25 10:22 DC Potassium Chloride (KCl 10% Elixir 20meq/15ml) 10 meq AD PRN PO POTASSIUM PROTOCOL 01/15/25 14:30 02/14/25 14:29 Sodium Chloride 1,000 ml @ 100 mls/hr Q10H IV 01/15/25 14:30 02/14/25 14:29 01/16/25 02:32 100 MLS/HR Vitamin B Complex/ Vit C/Folic Acid (Nephrovite Tablet) 1 cap DAILY PO 01/16/25 09:00 02/15/25 08:59 01/16/25 08:18 1 CAP Zolpidem Tartrate (AmbIEN) 5 mg HS PRN PO INSOMNIA 01/15/25 14:30 02/14/25 14:29 DIAGNOSTICS / RADIOLOGY: [ ] ASSESSMENT: [ Acute kidney injury POA Periodontal inflammatory patient's/infection POA History of kidney cancer s/p left nephrectomy Uncontrolled diabetes mellitus type 2 with hypoglycemia Hyperlipidemia, POA Hypertension POA ] PLAN: [Patient's creatinine has improved today is at 3.1 BUN 57 and GFR 16. We are still pending further recommendations/plan from the cable former. Home medication were reconciled by [facility]OO TECHNICIAN. Patient's BNP is 847. Based on home medication patient normally is on furosemide 40 mg b.i.d.. We will order 2D echo. Chest x-ray showed moderate cardiomegaly. CT maxilla facial shows sinusitis. Renal ultrasound there is limited due to left kidney not seen. As per patient she had left nephrectomy done in [place]. We will continue to monitor patient in the meantime. A.m. labs Admit to medical-surgical floor Start clindamycin for a dental infection Normal saline at 100 mL/hour PRN medication Initiate hyper or hypokalemia protocol Initiate hyper hypoglycemia protocol Hypomagnesemia protocol Urine culture Urinalysis negative Blood culture pending Consistent carbs 60 to 75 g PT eval request Case management for evaluation] ATTESTATION BY PHYSICIAN I have seen and examined the patient. I reviewed the documentation, medical decision making, and treatment plan as noted by the mid-level provider above. I agree with the findings and plan of care. PARISA MEHTA MD, KAT[employer] B [employer] TECHNICIAN Jan 16, 2025 11:16
[2025-01-16] MEDS ORDERED: NITROGLYCERIN 0.4 MG SL TAB SL SCH (11:30)
--- NOTE | 2025-01-16 14:26 | PN ---
NEPHROLOGY PROGRESS NOTE Date/Time Patient Seen: Jan 16, 2025 SUBJECTIVE: This is 59 years old female with a past medical history of kidney cancer, s/p left nephrectomy, diabetes, hypertension, hyperlipidemia, who came to emergency department with a complaint of right facial pain. CT maxilla patient was show sinusitis. Renal ultrasound was noted. She continues on antibiotics She was noted with elevated BUN/creatinine We are consulted for renal failure Renal function is improving Electrolytes are stable. She was seen in the medical floor, in no acute distress No family at the bedside Prognosis remains guarded REVIEW OF SYSTEMS: GENERAL: Negative for any nausea, vomiting, fevers, chills, or weight loss. NEUROLOGIC: Negative for any blurry vision, blind spots, double vision, facial asymmetry, dysphagia, dysarthria, hemiparesis, hemisensory deficits, vertigo, ataxia. HEENT: Negative for any head trauma, neck trauma, neck stiffness, photophobia, phonophobia, sinusitis, rhinitis. CARDIAC: Negative for any chest pain, dyspnea on exertion, paroxysmal nocturnal dyspnea, peripheral edema. PULMONARY: Negative for any shortness of breath, wheezing, COPD, or TB exposure. GASTROINTESTINAL: Negative for any abdominal pain, nausea, vomiting, bright red blood per rectum, melena. GENITOURINARY: Negative for any dysuria, hematuria, incontinence. INTEGUMENTARY: Negative for any rashes, cuts, insect bites. RHEUMATOLOGIC: Negative for any joint pains, photosensitive rashes, history of vasculitis or kidney problems. HEMATOLOGIC: Negative for any abnormal bruising, frequent infections or bleeding. Vital Signs (last 8hr) Date Time Temp Pulse Resp B/P (MAP) Pulse Ox O2 Delivery O2 Flow Rate FiO2 01/16/25 12:00 98.4 77 16 149/80 94 Room Air 01/16/25 08:00 97.7 79 16 156/94 95 Room Air 01/16/25 08:00 Room Air* 0 21 PHYSICAL EXAM: GENERAL: Alert and oriented x 3. No acute distress. Well-nourished. EYES: EOMI. Anicteric. HENT: Moist mucous membranes. No scleral icterus. No cervical lymphadenopathy. LUNGS: Clear to auscultation bilaterally. No accessory muscle use. CARDIOVASCULAR: Regular rate and rhythm. No murmur. No JVD. ABDOMEN: Soft, non-tender and non-distended. No palpable masses. EXTREMITIES: No edema. Non-tender.?SKIN: No rashes or lesions. Warm. NEUROLOGIC: No focal neurological deficits. CN II-XII grossly intact, but not individually tested. PSYCHIATRIC: Cooperative. Appropriate mood and affect. Current Medications Medications (Trade) Dose Ordered Sig/Hilda Route PRN Reason Start Time Stop Time Status Last Admin Dose Admin Acetaminophen (TYLenol 325MG TAB) 650 mg Q4H PRN PO MILD PAIN (1-3) 01/15/25 14:30 02/14/25 14:29 01/16/25 05:48 650 MG Acetaminophen (TYLenol 325MG TAB) 650 mg Q6H PRN PO MILD PAIN (1-3) 01/15/25 14:30 01/15/25 14:26 DC Acetaminophen (TYLenol 325MG TAB) 650 mg Q6H PRN PO TEMPERATURE GREATER THAN 101.5 01/15/25 14:30 02/14/25 14:29 Al Hydroxide/Mg Hydroxide (MAALox PLUS 30ML) 30 ml Q6H PRN PO INDIGESTION 01/15/25 14:30 02/14/25 14:29 Amiodarone HCl (pacERONE 200MG) 200 mg DAILY PO 01/17/25 09:00 02/16/25 08:59 Amlodipine Besylate (NorvASC 5MG TAB) 10 mg DAILY PO 01/17/25 09:00 02/16/25 08:59 Atorvastatin Calcium (LIPItor 40MG) 80 mg HS PO 01/16/25 21:00 02/15/25 20:59 Clindamycin HCl/ Dextrose 50 ml @ 100 mls/hr Q8H IV 01/15/25 14:30 01/15/25 22:29 DC 01/15/25 15:03 100 MLS/HR Clindamycin HCl/ Dextrose 50 ml @ 100 mls/hr Q8H IV 01/16/25 02:00 01/26/25 01:59 01/16/25 08:18 100 MLS/HR Clindamycin HCl/ Dextrose 50 ml @ 100 mls/hr Q8H STAT IV 01/15/25 12:36 01/15/25 13:05 DC 01/15/25 12:53 100 MLS/HR Clopidogrel Bisulfate (plaVIX 75MG) 75 mg DAILY PO 01/17/25 09:00 02/16/25 08:59 Dextrose (D50w) 50 ml AD PRN IV HYPOGLYCEMIA PROTOCOL 01/15/25 14:30 02/14/25 14:29 Diphenhydramine HCl (BENAdryl INJ) 25 mg Q6H PRN IV SEVERE ITCHING/RASH 01/15/25 14:30 02/14/25 14:29 Empaglifozin (Jardiance 10mg) 10 mg DAILY PO 01/17/25 09:00 02/16/25 08:59 Ergocalciferol (Drisdol) 50,000 unit QWEEK PO 01/23/25 09:00 02/22/25 08:59 Famotidine (Pepcid 20mg Vial) 20 mg BID PRN IV NAUSEA/VOMITING 01/15/25 14:30 01/15/25 14:26 DC Famotidine (Pepcid 20mg Vial) 20 mg Q48H IV 01/15/25 21:00 02/14/25 20:59 01/15/25 20:32 20 MG Glucagon (Glucagon 1mg Kit) 1 mg AD PRN IM HYPOGLYCEMIA PROTOCOL 01/15/25 14:30 02/14/25 14:29 Guaifenesin/ Dextromethorphan (RobiTUSSin DM 200/20MG 10ML) 10 ml Q4H PRN PO COUGH 01/15/25 14:30 02/14/25 14:29 Heparin Sodium (Porcine) (HEParin 5,000 UNIT VIAL) 5,000 unit BID SQ 01/15/25 21:00 02/14/25 20:59 01/16/25 08:24 5,000 UNIT Home Med (Home Medication) (Finerenone (Kerendia) 10 MG) DAILY PO 01/17/25 09:00 02/16/25 08:59 Hydralazine HCl (APRESOLine 20MG INJ) 10 mg Q6H PRN IV For:SBP above 160;DBP above 90 01/15/25 14:30 02/14/25 14:29 Ibuprofen (moTRIN) 600 mg Q8H PRN PO MODERATE PAIN (4-6) 01/15/25 14:30 02/14/25 14:29 Insulin Human Regular (humuLIN R 100 UNIT/ML 3ML) INSULIN SLIDING SCAL... ACHS SQ 01/15/25 16:30 02/14/25 16:29 01/16/25 11:34 10 UNIT Isosorbide Mononitrate (Imdur 30mg Sr) 30 mg DAILY PO 01/17/25 09:00 02/16/25 08:59 Ketorolac Tromethamine (toRADol) 15 mg Q8H PRN IV MODERATE PAIN (4-6) 01/15/25 14:30 01/15/25 14:29 DC Lactulose (Constulose 20gm/ 30ml Udcup) 20 gm BID PRN PO CONSTIPATION 01/15/25 14:30 02/14/25 14:29 Losartan Potassium (CozAAR 50 mg TAB) 50 mg DAILY PO 01/17/25 09:00 02/16/25 08:59 Magnesium Sulfate 50 ml @ 0 mls/hr PROTOCOL PRN IV other 01/15/25 14:30 02/14/25 14:29 Metoprolol Succinate (TopROL XL) 25 mg DAILY PO 01/17/25 09:00 02/16/25 08:59 Morphine Sulfate (morPHINE 4MG SYG) 1 mg Q4H PRN IVP SEVERE PAIN (7-10) 01/15/25 15:00 01/22/25 14:59 Nitroglycerin (Nitrostat) 0.4 mg AD SL 01/16/25 11:30 01/16/25 11:16 DC Nitroglycerin (Nitrostat) 0.4 mg PROTOCOL PRN SL CHEST PAIN 01/15/25 14:30 02/14/25 14:29 Ondansetron HCl (zoFRAN 4MG INJ) 4 mg Q6H PRN IV NAUSEA/VOMITING 01/15/25 14:30 02/14/25 14:29 Pharmacy Profile Note (Pharmacy Communication) 1 each ONCE MISC 01/15/25 13:30 01/15/25 19:00 DC 01/15/25 13:24 1 EACH Potassium Chloride 100 ml @ 100 mls/hr AD PRN IV POTASSIUM PROTOCOL 01/15/25 14:30 02/14/25 14:29 Potassium Chloride (K-Dur 10meq Sr Tab) 10 meq AD PRN PO POTASSIUM PROTOCOL 01/16/25 10:30 02/14/25 14:29 Potassium Chloride (K-Dur/Klor-Con 20meq) 10 meq AD PRN PO POTASSIUM PROTOCOL 01/15/25 14:30 01/16/25 10:22 DC Potassium Chloride (KCl 10% Elixir 20meq/15ml) 10 meq AD PRN PO POTASSIUM PROTOCOL 01/15/25 14:30 02/14/25 14:29 Sodium Chloride 1,000 ml @ 100 mls/hr Q10H IV 01/15/25 14:30 02/14/25 14:29 01/16/25 11:51 100 MLS/HR Vitamin B Complex/ Vit C/Folic Acid (Nephrovite Tablet) 1 cap DAILY PO 01/16/25 09:00 02/15/25 08:59 01/16/25 08:18 1 CAP Zolpidem Tartrate (AmbIEN) 5 mg HS PRN PO INSOMNIA 01/15/25 14:30 02/14/25 14:29 LABORATORY: [ ] Hematology Labs: Test 01/16/25 03:39 Range/Units White Blood Count 5.9 # 4.8-10.8 K/uL Red Blood Count 3.60 L 4.00-5.50 MIL/uL Hemoglobin 11.8 L 12.0-16.0 g/dL Hematocrit 34.2 L 36-48 % Mean Corpuscular Volume 95.0 79-99 fL Mean Corpuscular Hemoglobin 32.8 27.0-33.0 pg Mean Corpuscular Hemoglobin Concent 34.5 32.0-36.0 g/dL Red Cell Distribution Width 13.5 11.0-15.5 % Platelet Count 180 130-400 K/uL Mean Platelet Volume 9.9 7.5-10.5 fL Immature Granulocyte % (Auto) 0.2 0-1 % Neutrophils (%) (Auto) 88.5 H 40.0-77.0 % Lymphocytes (%) (Auto) 9.8 L 21.0-51.0 % Monocytes (%) (Auto) 1.5 L 3.0-13.0 % Eosinophils (%) (Auto) 0.0 0.0-8.0 % Basophils (%) (Auto) 0.0 0.0-5.0 % Neutrophils # (Auto) 5.2 1.8-7.7 K/uL Lymphocytes # (Auto) 0.6 L 1.0-4.8 K/uL Monocytes # (Auto) 0.1 0.1-1.0 K/uL Eosinophils # (Auto) 0.00 0.00-0.70 K/uL Basophils # (Auto) 0.00 0.00-0.20 K/uL Absolute Immature Granulocyte (auto 0.01 0-1 K/uL Nucleated Red Blood Cells 0.0 0.0-0.19 % White Cell Morphology Comment CONSISTENT W/DIFF Chemistry Labs: Test 01/16/25 10:56 01/16/25 03:39 01/15/25 12:48 Range/Units Whole Blood Glucose 261 #H 70-110 MG/DL Sodium Level 137 136-145 mmol/L Potassium Level 4.2 3.5-5.1 mmol/L Chloride Level 104 101-111 mmol/L Carbon Dioxide Level 18 L 21-32 mmol/L Blood Urea Nitrogen 57 H 7-18 mg/dL Creatinine 3.1 H 0.5-1.0 mg/dL Glomerular Filtration Rate Calc 16 >90 mL/min Random Glucose 199 H 70-105 mg/dL Hemoglobin A1c 8.1 H 4.0-6.0 % Estimated Average Glucose (eAG) 186 H 70-126 mg/dL Lactic Acid Level 1.2 0.8-2.5 mmol/L Uric Acid 8.7 H 2.6-7.2 mg/dL Total Calcium 8.5 8.5-10.1 mg/dL Phosphorus Level 4.1 2.5-4.9 mg/dL Magnesium Level 2.30 1.80-2.40 mg/dL Iron Level 50 50-170 mcg/dL Total Iron Binding Capacity 306 250-450 mcg/dL Percent Iron Saturation 16.3 L 22-44 % Ferritin 129 15-150 ng/mL Total Bilirubin 0.3 0.2-1.0 mg/dL Direct Bilirubin 0.1 0.0-0.3 mg/dL Aspartate Amino Transf (AST/SGOT) 14 10-37 U/L Alanine Aminotransferase (ALT/SGPT) 20 12-78 U/L Alkaline Phosphatase 207 H 50-136 U/L Ammonia < 10 L 11-32 umol/L Total Creatine Kinase 58 21-232 U/L B-Type Natriuretic Peptide 847 H 0-100 pg/mL Total Protein 8.0 6.0-8.3 g/dL Albumin 3.1 L 3.5-5.0 g/dL Amylase Level 88 25-115 U/L Lipase 67 16-77 U/L Procalcitonin 0.07 0.05-0.5 ng/mL Thyroid Stimulating Hormone (TSH) 0.73 0.36-3.74 uIU/mL Free Thyroxine (T4) Direct 1.29 0.76-1.46 ng/dL Free Triiodothyronine (T3) pg/mL 1.34 L 2.18-3.98 pg/mL Folic Acid (LAB) > 20.00 H 2-20 ng/mL DIAGNOSTICS / RADIOLOGY: [facility] [address] [place] [address] IMAGING REPORT Signed PATIENT: INGRID BORREGO MR#: [id number] : 1965 SEX: F AGE: 59 LOCATION: [facility] ORDER 22 [facility] REPORT#: [id number] SERVICE 14 REASON: jason ORDERING PHYSICIAN: LOUIS NEFF APRN PROCEDURE: RENAL - US RENAL SONOGRAM US RENAL SONOGRAM Indication: jason Technique: Renal ultrasound was performed by a ram press operator and reviewed by a radiologist. Findings: Right Kidney: Measures 11.0 x 7.0 x 7.0 cm. Unremarkable sonographic appearance without focal lesions or hydronephrosis. Left Kidney: Left kidney is obscured and not seen due to overlying bowel gas and large body habitus. Urinary bladder: Unremarkable. The prevoid volume is 140.05 cc. The post void residual is not obtained. The urinary bladder wall thickness is 0.28 cm. Impression: There is limited due to left kidney not seen The remaining study otherwise appears to be normal. DICTATED BY: ERIN DANIEL MD DATE: 01/15/251612 ELECTRONICALLY SIGNED BY: ERIN DANIEL MD DATE: 01/15/251616 PATIENT: INGRID BORREGO MR#: [id number] : 1965 SEX: F AGE: 59 LOCATION: [facility] ORDER 22 STATUS: ADM IN REPORT#: [id number] SERVICE 1415 REASON: peridontal infection ORDERING PHYSICIAN: LOUIS NEFF OUTBOUND TELEMARKETER PROCEDURE: MAXFACI WO - CT MAXILLOFACIAL W/O CONTRAST CT MAXILLOFACIAL W/O CONTRAST CLINICAL HISTORY: peridontal infection COMPARISON: None TECHNIQUE: Thin axial images were obtained through the facial bones/orbits without the use of intravenous contrast. Coronal and sagittal reformatted images were also submitted for interpretation. CONTRAST: mL of Isovue FINDINGS: NASAL REGION: The nasal bones, frontal processes of the maxilla, and lamina papyracea are intact. The ethmoid air cells are clear. The nasal septum is not deviated. and the nasal spine is intact. ORBITS: The orbital awad, floor, roof and rims are intact. The globes are symmetric and intact. There is no dislocation of the lens. Extraocular muscles are symmetric. Retro-ocular soft tissues are clear. ZYGOMA: The zygomatic arch, inferior and lateral orbital rim, and lateral and anterior awad of the maxilla are intact. MAXILLARY REGION: The alveolar, pterygoid and palatine processes are intact. Maxillary sinuses demonstrate there is bilateral mucoperiosteal thickening or prominence of the right as compared to the left. The remaining paranasal sinuses the ethmoid sphenoid and frontal air cells are well aerated.. MANDIBLE: The symphysis, body and ramus are intact. Coronoid process and alveolar ridges are unremarkable in appearance. No dislocation or fracture of the condyles. SOFT TISSUES: There is no soft tissue swelling or subcutaneous emphysema. The included brain is unremarkable. Visualized portions of the cervical spine look unremarkable. IMPRESSION: Bilateral maxillary sinusitis more pronounced on the right as compared to the left with mucous periosteal thickening. DICTATED BY: ERIN DANIEL MD DATE: 01/15/25 1529 ELECTRONICALLY SIGNED BY: ERIN DANIEL MD DATE: 01/15/25 1534 PATIENT: INGRID BORREGO MR#: [id number] : 1965 SEX: F AGE: 59 LOCATION: [facility] ORDER 22 STATUS: ADM IN [facility] REPORT#: [id number] SERVICE 1415 REASON: congestion ORDERING PHYSICIAN: OFIARA,LOUIS B OUTBOUND TELEMARKETER PROCEDURE: CXR1VW - CHEST 1VW CHEST 1VW REASON: congestion COMPARISON: None. FINDINGS: Single view of the chest was obtained. Lungs are clear. There is moderate cardiomegaly.. There is no pulmonary vascular congestion. Mediastinum and bony thorax appear unremarkable. IMPRESSION: 1. Moderate global cardiomegaly. 2. No evidence of airspace consolidation or pulmonary venous congestion DICTATED BY: ERIN DANIEL MD DATE: 01/15/251510 ELECTRONICALLY SIGNED BY: ERIN DANIEL MD DATE: 01/15/251512 ASSESSMENT: Acute kidney injury Periodontal inflammatory patient's/infection History of kidney cancer s/p left nephrectomy Uncontrolled diabetes mellitus type 2 Hyperlipidemia, Hypertension PLAN: Labs, diagnostic, radiologic exams reviewed and interpreted by myself and supervising physician. We have reviewed external records in detail Order urine creatinine, urine osmolality Order dietary consult Require close monitoring of renal function and electrolytes Order CBC, CMP, and electrolytes in am Continue with antibiotics Renal diabetic diet BiPAP as necessary, for respiratory distress Monitor blood pressure adjust medication doses as needed Avoid hypotensive episodes May use Dilaudid 0.5 mg IV every 6 hours as needed for severe pain Monitor blood sugars Strict intake, output, and daily weight should be monitored Please renally adjust medications Avoid nephrotoxic and nonsteroidal drugs Avoid contrast if possible Will continue to monitor renal function, anemia, electrolytes Treatment plan discussed with patient Questions were answered We have discussed with the other team physicians in detail about the care plan We will continue to monitor the patient closely ATTESTATION BY PHYSICIAN I have seen and examined the patient. I reviewed the documentation, medical decision making, and treatment plan as noted by the mid-level provider above. I agree with the findings and plan of care. MEREDITH ALEXANDER MD, [facility] Jan 16, 2025 14:26
[2025-01-16 15:06] LABS: ABG BASE EXCESS -8.2 mmol/L (-2.0-3.0); ABG HCO3 15.4 mmol/L (21.0-28.0); ABG OXYGEN SATURATION 90.3 % (94.0-98.0); ABG PCO2 27 mmHg (32-45); ABG PH 7.368 (7.350-7.450); DEVICE COMMENT RRJESSICA; PO2, ARTERIAL BG 58.9 mmHg (83.0-108.0); TEMPERATURE, CELSIUS BG 37.0 CELSIUS (35.5-37.0); VENT MODE, BG RA (ROOM AIR)
--- NOTE | 2025-01-16 15:27 | HMCSR ---
APPROVED REPORT EXAM: Two-dimensional and M-mode echocardiogram with Doppler and color Doppler. INDICATION ICD: Heart Failure 2D Dimensions RVDd4.0 cmLVEF(%)68.2 (>50%)LVED Vol(simp.)79.7 mL IVSd1.1 (0.7-1.1cm)FS(%)38 %LVES Vol(simp.)44.5 mL LVDd4.3 (3.8-5.6cm)LA (2D)6.1 (1.6-4.0cm)LVEF(%, simp.)44 % PWd1.1 (0.7-1.1cm)Ao Root(2D)2.7 (2.0-3.7cm)LA ESV INDEX (BP)62.75 mL/m2 LVDs2.7 (2.5-4.0cm)LVOT diam2.0 (1.8-2.4cm) IVC diam1.6 cm Deformation Strain Apical 4-11.1 % Apical 2-13.7 % Apical 3-11.4 % Global Strain-12.1 % M-Mode Dimensions EPSS0.9 cm LA (MM)4.7 (1.6-4.0cm) Ao Root(MM)2.5 (2.0-3.7cm) Aortic Valve AoV Vmax1.5 m/Kenneth Peak GR8.9 mmHgLVOT Vmax1.0 m/s AoV VTI0.3 mAo Mean GR5.0 mmHgLVOT VTI0.23 m BEN (VMAX)1.99 cm2AVA (VTI) 2.0 cm2 Mitral Valve MV E Zslo099.2 cm/sDECEL Dcxs022 msMV Peak GR11 mmHg MV A Vmax88.7 cm/sP 1/2 T65 msMV Mean GR5 mmHg E/A ratio1.6MVA (PHT)3.4 cm2MVA (VTI)1.85 cm2 TDI E/E' Nuvvpf81.3E/E' Ckgcqmh34.3 Medial E' Peak V6.77 cm/sLateral E' Peak V7.09 cm/s Pulmonary Valve PV Vmax1.1 m/sPV VTI0.26 mPV Mean GR2.6 mmHg PV Peak GR4.6 mmHg Left Ventricle The left ventricle is normal size. There is normal left ventricular wall thickness. LVEF is 50-55%. L eft ventricular mobile thrombus is present on the mid anterior septum, possibly an myoxma, measuring approximately 2.0cm Stage II diastolic dysfunction. Right Ventricle The right ventricle is normal size. The right ventricular systolic function is normal. Atria The left atrium is severely dilated. The right atrium size is normal. Aortic Valve The aortic valve is normal in structure. No aortic regurgitation is present. There is no aortic valvu lar stenosis. Mitral Valve The mitral valve is normal in structure. Mitral regurgitation is mild. There is no mitral valve steno sis. Tricuspid Valve The tricuspid valve is normal in structure. There is no tricuspid valve regurgitation noted. Pulmonic Valve The pulmonary valve is normal in structure. There is no pulmonic valvular regurgitation. Great Vessels The aortic root is normal in size. The IVC is normal in size and collapses >50% with inspiration. Pericardium There is no pericardial effusion. 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
[2025-01-16] MEDS: PHARMACY COMMUNICATION MISC SCH (18:00)
[2025-01-16 19:18] LABS: CREATININE,URINE RANDOM 40.04 mg/dL (30-135); PROTEIN,URINE RANDOM 216.9 mg/dL (0-11.9)
--- NOTE | 2025-01-16 19:44 | CONS ---
NEPHROLOGY CONSULTATION REASON FOR CONSULTATION: Worsening renal failure. HISTORY OF PRESENT ILLNESS: This patient has multiple medical problems. She is a 59-year-old with underlying history of left nephrectomy for kidney cancer, diabetes, hypertension, and obesity. The patient came with facial pain, found to have a tooth infection, infected molar. Pain is severe. The patient has been found to have elevated BUN and creatinine, and GFR of only 14. The patient is now admitted with all these problems. All other systemic review is unchanged. The patient has renal failure, which could be acute on chronic. PAST MEDICAL HISTORY: Diabetes, hypertension, hyperlipidemia, renal cell cancer. PAST SURGICAL HISTORY: Reported left nephrectomy. ALLERGIES: No allergies. FAMILY HISTORY: Negative for any kidney cyst, stone, or renal problems. SOCIAL HISTORY: No smoking, alcohol, or drug abuse. REVIEW OF SYSTEMS: CONSTITUTIONAL: Has been weak. No fevers, chills, or rigors. HEENT: No headache, oral ulcer, sore throat, or difficulty swallowing. No new vision complaint. RESPIRATORY: No cough, expectoration, hemoptysis, or pleuritic pain. CARDIOVASCULAR: No shortness of breath. No orthopnea. GASTROINTESTINAL: Negative for nausea, vomiting, or diarrhea. GENITOURINARY: Negative for dysuria or hematuria. DERMATOLOGIC: No rashes, pruritus or skin lesions. ENDOCRINE: No polyuria, polydipsia, or polyphagia. PSYCHIATRIC: Review is negative for anxiety, depression, hallucinations. PHYSICAL EXAMINATION: GENERAL: Neurologically, the patient is pale, lying in bed. VITAL SIGNS: Blood pressure 146/78, pulse 68, respiratory rate is 18, afebrile at this time. HEENT: Head is atraumatic. Pupils are round and reactive. Sclerae are anicteric. Conjunctivae not pale. Oral mucosa is not dry. NECK: Supple. No masses or bruits. Thyroid is palpable. Neck has no bruits. CHEST: Shows equal thoracic percussion. CARDIAC: Regular rhythm. No rub, no S3 or S4. ABDOMEN: No guarding or tenderness. Bowel sounds are normoactive. No free fluid. EXTREMITIES: With no edema and no cyanosis or clubbing. BACK: No tenderness or back deformities. LABORATORY DATA: We have reviewed labs in detail where the BUN is low, hemoglobin is 12. BUN is elevated, creatinine is 3.6. GFR 14. Low sodium of 135. Sugar was elevated. IMAGING STUDIES: X-ray chest was personally reviewed. I have reviewed the other imaging studies. The patient has undergone renal ultrasound, personally reviewed with no acute finding. Left kidney not seen because of nephrectomy. Maxillofacial CT has been done with no acute finding. Sinusitis was present. All the chest x-ray has increased markings. Old records have been reviewed. All the imaging and labs are personally reviewed. PROBLEMS: 1. This patient has renal failure, query [id number] chronic or may have reached end-stage with single kidney. 2. Previous nephrectomy on left side due to renal cell cancer. 3. Underlying anemia. 4. Underlying obesity. 5. Underlying diabetes with nephropathy. 6. Underlying hypertension. 7. Multiple other comorbidities like mild acidosis, hyponatremia. PLAN: 1. The patient will get urinalysis. 2. Urine electrolytes and osmolarity. 3. Followup on CBC, CMP, TSH, and uric acid. 4. The patient will have iron replacement as given. 5. Nephro-Manuel daily. 6. Renal ultrasound. 7. IV Dilaudid for pain 0.5 every 6 hours. 8. Please avoid contrast and nonsteroidal nephrotoxic agents. 9. We have discussed with the team physician. 10. Old and external records were reviewed in detail. 11. Followup labs have been ordered as detailed above and we will continue monitoring. The patient is having single kidney. Condition remains critically guarded. I thank you for this patient. TID: [id number] RECEIPT: [id number]
[2025-01-17] VITALS (9 sets, daily range): BP systolic 130–151; BP diastolic 77–89; PULSE 71–79; RESP 16–18; TEMP 97.5–98.4; O2SAT 94–95
[2025-01-17 04:13] LABS: IMMATURE GRANULOCYTE ABSOLUTE 0.04 K/uL (0-1); NUCLEATED RED BLOOD CELLS 0.0 % (0.0-0.19); PLATELET COUNT (AUTO) 171 K/uL (130-400); RED BLOOD CELL COUNT(AUTO) 3.24 MIL/uL (4.00-5.50); RED CELL DISTRIBUTION WIDTH 14.0 % (11.0-15.5); WHITE BLOOD COUNT (AUTO) 11.4 K/uL (4.8-10.8)
[2025-01-17 04:31] LABS: ASPARTATE AMINOTRANSFERASE 13.0 U/L (10-37); CREATININE 2.5 mg/dL (0.5-1.0); GLOMERULAR FILTR. RATE CALC 21.0 mL/min (>90); GLUCOSE,RANDOM 94.0 mg/dL (70-105); SODIUM SERUM 142.0 mmol/L (136-145); TOTAL PROTEIN, SERUM 6.9 g/dL (6.0-8.3); UREA NITROGEN, BLOOD 51.0 mg/dL (7-18)
[2025-01-17] MEDS: PoTASSium chloRIDE 10MEQ SR 10 MEQ/TAB TAB.SR.24H PO PRN (07:01)
[2025-01-17] MEDS: amLODIPine 5 MG TAB PO SCH (07:54)
[2025-01-17] MEDS: ISOSORBIDE MONO 30MG SR TAB PO SCH (07:55)
[2025-01-17] MEDS: EMPAGLIFLOZIN 10MG TABLET PO SCH (07:55)
[2025-01-17] MEDS: (Finerenone (Kerendia) 10 MG) PO SCH (09:14)
--- NOTE | 2025-01-17 09:22 | PN ---
NEPHROLOGY PROGRESS NOTE Date/Time Patient Seen: Jan 17, 2025 SUBJECTIVE: This is 59 years old female with a past medical history of kidney cancer, s/p left nephrectomy, diabetes, hypertension, hyperlipidemia, who came to emergency department with a complaint of right facial pain. CT maxilla patient was show sinusitis. Renal ultrasound was noted. 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 Pending cardiology consult She was noted with elevated BUN/creatinine We are consulted for renal failure Renal function is improving Electrolytes are stable. She was seen in the medical floor, in no acute distress No family at the bedside Prognosis remains guarded REVIEW OF SYSTEMS: GENERAL: Negative for any nausea, vomiting, fevers, chills, or weight loss. NEUROLOGIC: Negative for any blurry vision, blind spots, double vision, facial asymmetry, dysphagia, dysarthria, hemiparesis, hemisensory deficits, vertigo, ataxia. HEENT: Negative for any head trauma, neck trauma, neck stiffness, photophobia, phonophobia, sinusitis, rhinitis. CARDIAC: Negative for any chest pain, dyspnea on exertion, paroxysmal nocturnal dyspnea, peripheral edema. PULMONARY: Negative for any shortness of breath, wheezing, COPD, or TB exposure. GASTROINTESTINAL: Negative for any abdominal pain, nausea, vomiting, bright red blood per rectum, melena. GENITOURINARY: Negative for any dysuria, hematuria, incontinence. INTEGUMENTARY: Negative for any rashes, cuts, insect bites. RHEUMATOLOGIC: Negative for any joint pains, photosensitive rashes, history of vasculitis or kidney problems. HEMATOLOGIC: Negative for any abnormal bruising, frequent infections or bleeding. Vital Signs (last 8hr) Date Time Temp Pulse Resp B/P (MAP) Pulse Ox O2 Delivery O2 Flow Rate FiO2 01/17/25 08:00 97.5 74 16 139/85 95 Room Air 01/17/25 04:12 97.7 71 16 130/80 97 Room Air 0.0 PHYSICAL EXAM: GENERAL: Alert and oriented x 3. No acute distress. Well-nourished. EYES: EOMI. Anicteric. HENT: Moist mucous membranes. No scleral icterus. No cervical lymphadenopathy. LUNGS: Clear to auscultation bilaterally. No accessory muscle use. CARDIOVASCULAR: Regular rate and rhythm. No murmur. No JVD. ABDOMEN: Soft, non-tender and non-distended. No palpable masses. EXTREMITIES: No edema. Non-tender.?SKIN: No rashes or lesions. Warm. NEUROLOGIC: No focal neurological deficits. CN II-XII grossly intact, but not individually tested. PSYCHIATRIC: Cooperative. Appropriate mood and affect. Current Medications Medications (Trade) Dose Ordered Sig/Hilda Route PRN Reason Start Time Stop Time Status Last Admin Dose Admin Acetaminophen (TYLenol 325MG TAB) 650 mg Q4H PRN PO MILD PAIN (1-3) 01/15/25 14:30 02/14/25 14:29 01/16/25 05:48 650 MG Acetaminophen (TYLenol 325MG TAB) 650 mg Q6H PRN PO MILD PAIN (1-3) 01/15/25 14:30 01/15/25 14:26 DC Acetaminophen (TYLenol 325MG TAB) 650 mg Q6H PRN PO TEMPERATURE GREATER THAN 101.5 01/15/25 14:30 02/14/25 14:29 Al Hydroxide/Mg Hydroxide (MAALox PLUS 30ML) 30 ml Q6H PRN PO INDIGESTION 01/15/25 14:30 02/14/25 14:29 Amiodarone HCl (pacERONE 200MG) 200 mg DAILY PO 01/17/25 09:00 02/16/25 08:59 Amlodipine Besylate (NorvASC 5MG TAB) 10 mg DAILY PO 01/17/25 09:00 02/16/25 08:59 Atorvastatin Calcium (LIPItor 40MG) 80 mg HS PO 01/16/25 21:00 02/15/25 20:59 Clindamycin HCl/ Dextrose 50 ml @ 100 mls/hr Q8H IV 01/15/25 14:30 01/15/25 22:29 DC 01/15/25 15:03 100 MLS/HR Clindamycin HCl/ Dextrose 50 ml @ 100 mls/hr Q8H IV 01/16/25 02:00 01/26/25 01:59 01/16/25 08:18 100 MLS/HR Clindamycin HCl/ Dextrose 50 ml @ 100 mls/hr Q8H STAT IV 01/15/25 12:36 01/15/25 13:05 DC 01/15/25 12:53 100 MLS/HR Clopidogrel Bisulfate (plaVIX 75MG) 75 mg DAILY PO 01/17/25 09:00 02/16/25 08:59 Dextrose (D50w) 50 ml AD PRN IV HYPOGLYCEMIA PROTOCOL 01/15/25 14:30 02/14/25 14:29 Diphenhydramine HCl (BENAdryl INJ) 25 mg Q6H PRN IV SEVERE ITCHING/RASH 01/15/25 14:30 02/14/25 14:29 Empaglifozin (Jardiance 10mg) 10 mg DAILY PO 01/17/25 09:00 02/16/25 08:59 Ergocalciferol (Drisdol) 50,000 unit QWEEK PO 01/23/25 09:00 02/22/25 08:59 Famotidine (Pepcid 20mg Vial) 20 mg BID PRN IV NAUSEA/VOMITING 01/15/25 14:30 01/15/25 14:26 DC Famotidine (Pepcid 20mg Vial) 20 mg Q48H IV 01/15/25 21:00 02/14/25 20:59 01/15/25 20:32 20 MG Glucagon (Glucagon 1mg Kit) 1 mg AD PRN IM HYPOGLYCEMIA PROTOCOL 01/15/25 14:30 02/14/25 14:29 Guaifenesin/ Dextromethorphan (RobiTUSSin DM 200/20MG 10ML) 10 ml Q4H PRN PO COUGH 01/15/25 14:30 02/14/25 14:29 Heparin Sodium (Porcine) (HEParin 5,000 UNIT VIAL) 5,000 unit BID SQ 01/15/25 21:00 02/14/25 20:59 01/16/25 08:24 5,000 UNIT Home Med (Home Medication) (Finerenone (Kerendia) 10 MG) DAILY PO 01/17/25 09:00 02/16/25 08:59 Hydralazine HCl (APRESOLine 20MG INJ) 10 mg Q6H PRN IV For:SBP above 160;DBP above 90 01/15/25 14:30 02/14/25 14:29 Ibuprofen (moTRIN) 600 mg Q8H PRN PO MODERATE PAIN (4-6) 01/15/25 14:30 02/14/25 14:29 Insulin Human Regular (humuLIN R 100 UNIT/ML 3ML) INSULIN SLIDING SCAL... ACHS SQ 01/15/25 16:30 02/14/25 16:29 01/16/25 11:34 10 UNIT Isosorbide Mononitrate (Imdur 30mg Sr) 30 mg DAILY PO 01/17/25 09:00 02/16/25 08:59 Ketorolac Tromethamine (toRADol) 15 mg Q8H PRN IV MODERATE PAIN (4-6) 01/15/25 14:30 01/15/25 14:29 DC Lactulose (Constulose 20gm/ 30ml Udcup) 20 gm BID PRN PO CONSTIPATION 01/15/25 14:30 02/14/25 14:29 Losartan Potassium (CozAAR 50 mg TAB) 50 mg DAILY PO 01/17/25 09:00 02/16/25 08:59 Magnesium Sulfate 50 ml @ 0 mls/hr PROTOCOL PRN IV other 01/15/25 14:30 02/14/25 14:29 Metoprolol Succinate (TopROL XL) 25 mg DAILY PO 01/17/25 09:00 02/16/25 08:59 Morphine Sulfate (morPHINE 4MG SYG) 1 mg Q4H PRN IVP SEVERE PAIN (7-10) 01/15/25 15:00 01/22/25 14:59 Nitroglycerin (Nitrostat) 0.4 mg AD SL 01/16/25 11:30 01/16/25 11:16 DC Nitroglycerin (Nitrostat) 0.4 mg PROTOCOL PRN SL CHEST PAIN 01/15/25 14:30 02/14/25 14:29 Ondansetron HCl (zoFRAN 4MG INJ) 4 mg Q6H PRN IV NAUSEA/VOMITING 01/15/25 14:30 02/14/25 14:29 Pharmacy Profile Note (Pharmacy Communication) 1 each ONCE MISC 01/15/25 13:30 01/15/25 19:00 DC 01/15/25 13:24 1 EACH Potassium Chloride 100 ml @ 100 mls/hr AD PRN IV POTASSIUM PROTOCOL 01/15/25 14:30 02/14/25 14:29 Potassium Chloride (K-Dur 10meq Sr Tab) 10 meq AD PRN PO POTASSIUM PROTOCOL 01/16/25 10:30 02/14/25 14:29 Potassium Chloride (K-Dur/Klor-Con 20meq) 10 meq AD PRN PO POTASSIUM PROTOCOL 01/15/25 14:30 01/16/25 10:22 DC Potassium Chloride (KCl 10% Elixir 20meq/15ml) 10 meq AD PRN PO POTASSIUM PROTOCOL 01/15/25 14:30 02/14/25 14:29 Sodium Chloride 1,000 ml @ 100 mls/hr Q10H IV 01/15/25 14:30 02/14/25 14:29 01/16/25 11:51 100 MLS/HR Vitamin B Complex/ Vit C/Folic Acid (Nephrovite Tablet) 1 cap DAILY PO 01/16/25 09:00 02/15/25 08:59 01/16/25 08:18 1 CAP Zolpidem Tartrate (AmbIEN) 5 mg HS PRN PO INSOMNIA 01/15/25 14:30 02/14/25 14:29 LABORATORY: [ ] Hematology Labs: Test 01/17/25 03:59 01/16/25 03:39 Range/Units White Blood Count 11.4 H 4.8-10.8 K/uL Red Blood Count 3.24 L 4.00-5.50 MIL/uL Hemoglobin 10.5 L 12.0-16.0 g/dL Hematocrit 31.7 L 36-48 % Mean Corpuscular Volume 97.8 79-99 fL Mean Corpuscular Hemoglobin 32.4 27.0-33.0 pg Mean Corpuscular Hemoglobin Concent 33.1 32.0-36.0 g/dL Red Cell Distribution Width 14.0 11.0-15.5 % Platelet Count 171 130-400 K/uL Mean Platelet Volume 9.9 7.5-10.5 fL Immature Granulocyte % (Auto) 0.3 0-1 % Neutrophils (%) (Auto) 77.9 H 40.0-77.0 % Lymphocytes (%) (Auto) 14.5 L 21.0-51.0 % Monocytes (%) (Auto) 6.1 3.0-13.0 % Eosinophils (%) (Auto) 1.0 0.0-8.0 % Basophils (%) (Auto) 0.2 0.0-5.0 % Neutrophils # (Auto) 8.9 H 1.8-7.7 K/uL Lymphocytes # (Auto) 1.7 1.0-4.8 K/uL Monocytes # (Auto) 0.7 0.1-1.0 K/uL Eosinophils # (Auto) 0.11 0.00-0.70 K/uL Basophils # (Auto) 0.02 0.00-0.20 K/uL Absolute Immature Granulocyte (auto 0.04 0-1 K/uL Nucleated Red Blood Cells 0.0 0.0-0.19 % White Cell Morphology Comment CONSISTENT W/DIFF Chemistry Labs: Test 01/17/25 03:59 01/16/25 19:42 01/16/25 03:39 01/15/25 12:48 Range/Units Sodium Level 142 136-145 mmol/L Potassium Level 3.8 3.5-5.1 mmol/L Chloride Level 111 101-111 mmol/L Carbon Dioxide Level 20 L 21-32 mmol/L Blood Urea Nitrogen 51 H 7-18 mg/dL Creatinine 2.5 H 0.5-1.0 mg/dL Glomerular Filtration Rate Calc 21 >90 mL/min Random Glucose 94 70-105 mg/dL Total Calcium 7.8 L 8.5-10.1 mg/dL Magnesium Level 2.00 1.80-2.40 mg/dL Total Bilirubin 0.3 0.2-1.0 mg/dL Aspartate Amino Transf (AST/SGOT) 13 10-37 U/L Alanine Aminotransferase (ALT/SGPT) 15 12-78 U/L Alkaline Phosphatase 178 H 50-136 U/L B-Type Natriuretic Peptide 913 H 0-100 pg/mL Total Protein 6.9 6.0-8.3 g/dL Albumin 2.7 L 3.5-5.0 g/dL Whole Blood Glucose 209 #H 70-110 MG/DL Hemoglobin A1c 8.1 H 4.0-6.0 % Estimated Average Glucose (eAG) 186 H 70-126 mg/dL Lactic Acid Level 1.2 0.8-2.5 mmol/L Uric Acid 8.7 H 2.6-7.2 mg/dL Phosphorus Level 4.1 2.5-4.9 mg/dL Iron Level 50 50-170 mcg/dL Total Iron Binding Capacity 306 250-450 mcg/dL Percent Iron Saturation 16.3 L 22-44 % Ferritin 129 15-150 ng/mL Direct Bilirubin 0.1 0.0-0.3 mg/dL Ammonia < 10 L 11-32 umol/L Total Creatine Kinase 58 21-232 U/L Amylase Level 88 25-115 U/L Lipase 67 16-77 U/L Procalcitonin 0.07 0.05-0.5 ng/mL Thyroid Stimulating Hormone (TSH) 0.73 0.36-3.74 uIU/mL Free Thyroxine (T4) Direct 1.29 0.76-1.46 ng/dL Free Triiodothyronine (T3) pg/mL 1.34 L 2.18-3.98 pg/mL Folic Acid (LAB) > 20.00 H 2-20 ng/mL DIAGNOSTICS / RADIOLOGY: [place] [id number] [address] IMAGING REPORT Signed PATIENT: INGRID BORREGO MR#: [id number] : 1965 SEX: F AGE: 59 LOCATION: S ORDER [id number] STATUS: ADM IN REPORT#: [id number] SERVICE 1112 REASON: chf ORDERING PHYSICIAN: LOUIS NEFF APRN PROCEDURE: ECHO CMP - ECHO 2-D COMPLETE APPROVED REPORT EXAM: Two-dimensional and M-mode echocardiogram with Doppler and color Doppler. INDICATION ICD: Heart Failure 2D Dimensions RVDd 4.0 cm LVEF(%) 68.2 (>50%) LVED Vol(simp.) 79.7 mL IVSd 1.1 (0.7-1.1cm) FS(%) 38 % LVES Vol(simp.) 44.5 mL LVDd 4.3 (3.8-5.6cm) LA (2D) 6.1 (1.6-4.0cm) LVEF(%, simp.) 44 % PWd 1.1 (0.7-1.1cm) Ao Root(2D) 2.7 (2.0-3.7cm) LA ESV INDEX (BP) 62.75 mL/m2 LVDs 2.7 (2.5-4.0cm) LVOT diam 2.0 (1.8-2.4cm) IVC diam 1.6 cm Deformation Strain Apical 4 -11.1 % Apical 2 -13.7 % Apical 3 -11.4 % Global Strain -12.1 % M-Mode Dimensions EPSS 0.9 cm LA (MM) 4.7 (1.6-4.0cm) Ao Root(MM) 2.5 (2.0-3.7cm) Aortic Valve AoV Vmax 1.5 m/s Ao Peak GR 8.9 mmHg LVOT Vmax 1.0 m/s AoV VTI 0.3 m Ao Mean GR 5.0 mmHg LVOT VTI 0.23 m BEN (VMAX) 1.99 cm2 BEN (VTI) 2.0 cm2 Mitral Valve MV E Vmax 144.2 cm/s DECEL Time 200 ms MV Peak GR 11 mmHg MV A Vmax 88.7 cm/s P 1/2 T 65 ms MV Mean GR 5 mmHg E/A ratio 1.6 MVA (PHT) 3.4 cm2 MVA (VTI) 1.85 cm2 TDI E/E' Medial 21.3 E/E' Lateral 20.3 Medial E' Peak V 6.77 cm/s Lateral E' Peak V 7.09 cm/s Pulmonary Valve PV Vmax 1.1 m/s PV VTI 0.26 m PV Mean GR 2.6 mmHg PV Peak GR 4.6 mmHg Left Ventricle The left ventricle is normal size. There is normal left ventricular wall thickness. LVEF is 50-55%. 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 Right Ventricle The right ventricle is normal size. The right ventricular systolic function is normal. Atria The left atrium is severely dilated. The right atrium size is normal. Aortic Valve The aortic valve is normal in structure. No aortic regurgitation is present. There is no aortic valvular stenosis. Mitral Valve The mitral valve is normal in structure. Mitral regurgitation is mild. There is no mitral valve stenosis. Tricuspid Valve The tricuspid valve is normal in structure. There is no tricuspid valve regurgitation noted. Pulmonic Valve The pulmonary valve is normal in structure. There is no pulmonic valvular regurgitation. Great Vessels The aortic root is normal in size. The IVC is normal in size and collapses >50% with inspiration. Pericardium There is no pericardial effusion. 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 DICTATED BY: JESSICA BRADFORD MD DATE: 01/16/25 1331 ELECTRONICALLY SIGNED BY: JESSICA BRADFORD MD DATE: 01/16/25 152 PATIENT: INGRID BORREGO MR#: [id number] : 1965 SEX: F AGE: 59 LOCATION: [place]HIP ORDER 22 STATUS: ADM IN [facility] REPORT#: [id number] SERVICE 14 REASON: jason ORDERING PHYSICIAN: LOUIS NEFF CROWN AND BRIDGE TECHNICIAN PROCEDURE: RENAL - US RENAL SONOGRAM US RENAL SONOGRAM Indication: jason Technique: Renal ultrasound was performed by a disaster recovery coordinator and reviewed by a radiologist. Findings: Right Kidney: Measures 11.0 x 7.0 x 7.0 cm. Unremarkable sonographic appearance without focal lesions or hydronephrosis. Left Kidney: Left kidney is obscured and not seen due to overlying bowel gas and large body habitus. Urinary bladder: Unremarkable. The prevoid volume is 140.05 cc. The post void residual is not obtained. The urinary bladder wall thickness is 0.28 cm. Impression: There is limited due to left kidney not seen The remaining study otherwise appears to be normal. DICTATED BY: ERIN DANIEL MD DATE: 01/15/25 1613 ELECTRONICALLY SIGNED BY: ERIN DANIEL MD DATE: 01/15/25 1617 PATIENT: INGRID BORREGO MR#: [id number] : 1965 SEX: F AGE: 59 LOCATION: EDHIP ORDER 22 STATUS: ADM IN REPORT#: [id number] SERVICE 14 REASON: peridontal infection ORDERING PHYSICIAN: LOUIS NEFF CROWN AND BRIDGE TECHNICIAN PROCEDURE: MAXFACI WO - CT MAXILLOFACIAL W/O CONTRAST CT MAXILLOFACIAL W/O CONTRAST CLINICAL HISTORY: peridontal infection COMPARISON: None TECHNIQUE: Thin axial images were obtained through the facial bones/orbits without the use of intravenous contrast. Coronal and sagittal reformatted images were also submitted for interpretation. CONTRAST: mL of Isovue FINDINGS: NASAL REGION: The nasal bones, frontal processes of the maxilla, and lamina papyracea are intact. The ethmoid air cells are clear. The nasal septum is not deviated. and the nasal spine is intact. ORBITS: The orbital awad, floor, roof and rims are intact. The globes are symmetric and intact. There is no dislocation of the lens. Extraocular muscles are symmetric. Retro-ocular soft tissues are clear. ZYGOMA: The zygomatic arch, inferior and lateral orbital rim, and lateral and anterior awad of the maxilla are intact. MAXILLARY REGION: The alveolar, pterygoid and palatine processes are intact. Maxillary sinuses demonstrate there is bilateral mucoperiosteal thickening or prominence of the right as compared to the left. The remaining paranasal sinuses the ethmoid sphenoid and frontal air cells are well aerated.. MANDIBLE: The symphysis, body and ramus are intact. Coronoid process and alveolar ridges are unremarkable in appearance. No dislocation or fracture of the condyles. SOFT TISSUES: There is no soft tissue swelling or subcutaneous emphysema. The included brain is unremarkable. Visualized portions of the cervical spine look unremarkable. IMPRESSION: Bilateral maxillary sinusitis more pronounced on the right as compared to the left with mucous periosteal thickening. DICTATED BY: ERIN DANIEL MD DATE: 01/15/25 1529 ELECTRONICALLY SIGNED BY: ERIN DANIEL MD DATE: 01/15/25 1534 PATIENT: INGRID BORREGO MR#: [id number] : 1965 SEX: F AGE: 59 LOCATION: [facility]IP ORDER 1423 STATUS: [facility] REPORT#: [id number] SERVICE 1415 REASON: congestion ORDERING PHYSICIAN: LOUIS NEFF APRN PROCEDURE: CXR1VW - CHEST 1VW CHEST 1VW REASON: congestion COMPARISON: None. FINDINGS: Single view of the chest was obtained. Lungs are clear. There is moderate cardiomegaly.. There is no pulmonary vascular congestion. Mediastinum and bony thorax appear unremarkable. IMPRESSION: 1. Moderate global cardiomegaly. 2. No evidence of airspace consolidation or pulmonary venous congestion DICTATED BY: ERIN DANIEL MD DATE: 01/15/251510 ELECTRONICALLY SIGNED BY: ERIN DANIEL MD DATE: 01/15/251512 ASSESSMENT: Acute kidney injury Periodontal inflammatory patient's/infection History of kidney cancer s/p left nephrectomy Uncontrolled diabetes mellitus type 2 Hyperlipidemia, Hypertension PLAN: Labs, diagnostic, radiologic exams reviewed and interpreted by myself and supervising physician. We have reviewed external records in detail Require close monitoring of renal function and electrolytes Order CBC, CMP, and electrolytes in am Continue with antibiotics Renal diabetic diet BiPAP as necessary, for respiratory distress Monitor blood pressure adjust medication doses as needed Avoid hypotensive episodes May use Dilaudid 0.5 mg IV every 6 hours as needed for severe pain Monitor blood sugars Strict intake, output, and daily weight should be monitored Please renally adjust medications Avoid nephrotoxic and nonsteroidal drugs Avoid contrast if possible Will continue to monitor renal function, anemia, electrolytes Treatment plan discussed with patient Questions were answered We have discussed with the other team physicians in detail about the care plan We will continue to monitor the patient closely ATTESTATION BY PHYSICIAN I have seen and examined the patient. I reviewed the documentation, medical decision making, and treatment plan as noted by the mid-level provider above. I agree with the findings and plan of care. MEREDITH ALEXANDER MD, [facility] Jan 17, 2025 09:22
[2025-01-17 09:43] LABS: ABG OXYGEN SATURATION 59.0 % (94.0-98.0); BASE EXCESS,VENOUS BLOOD GAS -8.3 (-2.0-3.0); DEVICE COMMENT VBGISRAEL; HCO3,VENOUS BLOOD GAS 17.6 (22.0-29.0); PCO2,VENOUS BLOOD GAS 38 (38-54); PH,VENOUS BLOOD GAS 7.289 (7.320-7.430); PO2,VENOUS BLOOD GAS 34.0 mmHg (23.0-48.0); TEMPERATURE, CELSIUS BG 37.0 CELSIUS (35.5-37.0); VENT MODE, BG VBG (ROOM AIR)
--- NOTE | 2025-01-17 10:00 | PN ---
[facility] PROGRESS NOTE Date of Service: Jan 17, 2025 Time of Service: 09:56 SUBJECTIVE: [ 01/15 Patient is 59 years old female with a past medical history of kidney cancer, s/p left nephrectomy, diabetes, hypertension, hyperlipidemia, who came to emergency department with a complaint of right facial pain. Patient stated that recently she was seen by a dentist due to infected molar the pain is unbearable so patient decided to come to emergency department for further evaluation/recommendations. During examination patient was found to be in acute kidney disease. When asked if patient ever follow up with wirer patient stated that she did know that she had some kidney problems which she never follow up with anyone outpatient. Most recent vital signs temperature 98.2 pulse 60 respirations 16 blood pressure 146/78 patient is on room air satting 98%. WBC 8.6 hemoglobin 12 hematocrit 35.4 platelets 197. Sodium 135 potassium 4.1 CO2 20 BUN 54 creatinine 3.6 GFR 14 iron 42 folic acid more than 20 chest x-ray showed moderate global cardiomegaly no evidence of consolidation or pulmonary venous congestion. CT maxillofacial was performed pending results. We also order ultrasound renal to evaluate for TIERNEY versus CKD . Patient will be admitted under hospitalist for further evaluation/recommendation. Overnight Cashier will be consulted for TIERNEY. 01/16 patient was seen by nurse practitioner and physician during rounding in [id number], comfortably lying in the bed. Patient's creatinine has improved today is at 3.1 BUN 57 and GFR 16. We are still pending further recommendations/plan from the wirer. Home medication were reconciled by [employer] AIDE. Patient's BNP is 847. Based on home medication patient normally is on furosemide 40 mg b.i.d.. We will order 2D echo. Chest x-ray showed moderate cardiomegaly. CT maxilla facial shows sinusitis. Renal ultrasound there is limited due to left kidney not seen. As per patient she had left nephrectomy done in [place]. We will continue to monitor patient in the meantime. A.m. labs] 01/17 patient is seen and examined at bedside, case discussed with the RN, no acute events overnight, the time of my visit comfortably in bed, alert oriented x3, hemodynamically stable, getting supportive care with IV fluids. Creatinine level slowly improving at 2.5. Initial chest x-ray moderate global cardiomegaly, no evidence of airspace consolidation or pulmonary venous congestion. CT maxillofacial showing bilateral maxillary sinusitis more pronounced of the right as compared to the left with mucus periosteal thickening. Renal ultrasound limited due to left kidney not seen, remained in study appears normal. 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 We will request Cardiology consultation. Urine culture greater than [id number] CFU, identification in process. Continue broad-spectrum IV antibiotics. Venous blood gas ordered, patient with a metabolic acidosis, with pH of 7.28, we will give 100 mEq of sodium bicarbonate IV, and we will start the patient on sodium bicarbonate 650 mg p.o. q.i.d.. Continue to follow Nephrology input recommendation. We will upgraded the patient to the PCU. Plan of action discussed with the patient, all questions answered, agreed and understood the information provided. REVIEW OF SYSTEMS CONSTITUTIONAL: Denies fevers, chills, or night sweats. No unintentional weight loss reported. NEUROLOGICAL: Denies headache, amaurosis fugax, motor weakness, sensory deficit, vertigo/spinning sensation, gait abnormalities, or tremors. ENT: No hearing loss, otalgia, otorrhea, rhinitis, rhinorrhea, hoarseness, or sore throat. Complains of periodontal pain/infection CARDIOVASCULAR: Denies any exertional angina, dyspnea on exertion, orthopnea, paroxysmal nocturnal dyspnea, palpitations, life-threatening arrhythmias, claudication. PULMONARY: Denies any shortness of breath, cough, phlegm/sputum, hemoptysis, pleuritic chest pain. SLEEP: Denies morning headaches, daytime somnolence or napping. Denies difficulty falling asleep, staying asleep, waking from sleep. Denies knowledge of snoring. GASTROINTESTINAL: Denies any type of dysphagia to either liquids or solids. Denies nausea, vomiting, pyrosis, early satiety, abdominal pain, diarrhea, constipation, or changes in stool consistency or caliber. Denies coffee-ground emesis, hematemesis, hematochezia, or melanotic stools. GENITOURINARY: Denies frequency, urgency, nocturia, hematuria or incontinence (Storage/Irritative symptoms.) Low urinary stream, straining to void, urinary intermittency or hesitancy, splitting of the voiding stream, terminal dribbling. ENDOCRINOLOGIC: Denies polyuria, polydipsia, polyphagia or heat/cold intolerances. HEMATOLOGIC: Denies thrombophilia/previous clots, or coagulopathy/bleeding disorders. ONCOLOGIC: Denies personal history of malignancy. DERMATOLOGIC: Denies rashes or pruritus. PSYCHIATRIC: Denies any suicidal or homicidal ideation. Denies hallucinations. PHYSICAL EXAM GENERAL APPEARANCE: The patient is awake, alert, and oriented, in no acute cardiopulmonary distress. NEUROLOGICAL: Cranial nerves II-XII grossly intact. Motor is 5/5 in bilateral upper and lower extremities proximal to distal. No sensory deficits. HEENT: Face is symmetric. Pupils are equal and reactive. Extraocular movements are intact. NECK: Supple. No JVD. No thyromegaly. No submental, submandibular, pre- /postauricular, occipital or supraclavicular lymphadenopathy. CHEST: Normal chest expansion. No Telemetry. LUNGS: Absence of any rales, rhonchi or any wheezing. CARDIOVASCULAR: Regular. S1 and S2 normal. No appreciable rubs, murmurs or gallops. ABDOMEN: Soft, nontender, and nondistended. There is no rebound, voluntary guarding, or rigidity. : Deferred. No Davis. EXTREMITIES: Non-edematous and not cyanotic. No clubbing. Good capillary refill. SKIN: No skin breakdown. Vital Signs (last 8hr) Date Time Temp Pulse Resp B/P (MAP) Pulse Ox O2 Delivery O2 Flow Rate FiO2 01/17/25 08:00 97.5 74 16 139/85 95 Room Air 01/17/25 04:12 97.7 71 16 130/80 97 Room Air 0.0 LABS: Laboratory: Test 01/17/25 09:41 01/17/25 03:59 01/16/25 19:42 01/16/25 18:50 Range/Units Blood Gas Specimen Type Venous Arterial Blood Oxygen Saturation 59.0 L 94.0-98.0 % Venous Blood pH 7.289 L 7.320-7.430 Venous Blood pCO2 at Patient Temp 38 38-54 Venous Blood pO2 at Patient Temp 34.0 23.0-48.0 mmHg Venous Blood HCO3 17.6 L 22.0-29.0 Venous Blood Base Excess -8.3 L -2.0-3.0 Blood Gas Temperature 37.0 35.5-37.0 CELSIUS Blood Gas Vent Mode VBG ROOM AIR FiO2 21.0 % Blood Gas Specimen Comment VBGISRAEL White Blood Count 11.4 H 4.8-10.8 K/uL Red Blood Count 3.24 L 4.00-5.50 MIL/uL Hemoglobin 10.5 L 12.0-16.0 g/dL Hematocrit 31.7 L 36-48 % Mean Corpuscular Volume 97.8 79-99 fL Mean Corpuscular Hemoglobin 32.4 27.0-33.0 pg Mean Corpuscular Hemoglobin Concent 33.1 32.0-36.0 g/dL Red Cell Distribution Width 14.0 11.0-15.5 % Platelet Count 171 130-400 K/uL Mean Platelet Volume 9.9 7.5-10.5 fL Immature Granulocyte % (Auto) 0.3 0-1 % Neutrophils (%) (Auto) 77.9 H 40.0-77.0 % Lymphocytes (%) (Auto) 14.5 L 21.0-51.0 % Monocytes (%) (Auto) 6.1 3.0-13.0 % Eosinophils (%) (Auto) 1.0 0.0-8.0 % Basophils (%) (Auto) 0.2 0.0-5.0 % Neutrophils # (Auto) 8.9 H 1.8-7.7 K/uL Lymphocytes # (Auto) 1.7 1.0-4.8 K/uL Monocytes # (Auto) 0.7 0.1-1.0 K/uL Eosinophils # (Auto) 0.11 0.00-0.70 K/uL Basophils # (Auto) 0.02 0.00-0.20 K/uL Absolute Immature Granulocyte (auto 0.04 0-1 K/uL Nucleated Red Blood Cells 0.0 0.0-0.19 % Sodium Level 142 136-145 mmol/L Potassium Level 3.8 3.5-5.1 mmol/L Chloride Level 111 101-111 mmol/L Carbon Dioxide Level 20 L 21-32 mmol/L Blood Urea Nitrogen 51 H 7-18 mg/dL Creatinine 2.5 H 0.5-1.0 mg/dL Glomerular Filtration Rate Calc 21 >90 mL/min Random Glucose 94 70-105 mg/dL Total Calcium 7.8 L 8.5-10.1 mg/dL Magnesium Level 2.00 1.80-2.40 mg/dL Total Bilirubin 0.3 0.2-1.0 mg/dL Aspartate Amino Transf (AST/SGOT) 13 10-37 U/L Alanine Aminotransferase (ALT/SGPT) 15 12-78 U/L Alkaline Phosphatase 178 H 50-136 U/L B-Type Natriuretic Peptide 913 H 0-100 pg/mL Total Protein 6.9 6.0-8.3 g/dL Albumin 2.7 L 3.5-5.0 g/dL Whole Blood Glucose 209 #H 70-110 MG/DL Urine Random Creatinine 40.04 30-135 mg/dL Urine Random Total Protein 216.9 H 0-11.9 mg/dL Test 01/16/25 15:04 01/16/25 03:39 01/15/25 20:34 01/15/25 17:41 Range/Units Arterial Blood pH 7.368 7.350-7.450 Arterial Blood Partial Pressure CO2 27 L 32-45 mmHg Arterial Blood Partial Pressure O2 58.9 L 83.0-108.0 mmHg Arterial Blood HCO3 15.4 L 21.0-28.0 mmol/L Arterial Blood Base Excess -8.2 L -2.0-3.0 mmol/L White Cell Morphology Comment CONSISTENT W/DIFF Hemoglobin A1c 8.1 H 4.0-6.0 % Estimated Average Glucose (eAG) 186 H 70-126 mg/dL Lactic Acid Level 1.2 0.8-2.5 mmol/L Uric Acid 8.7 H 2.6-7.2 mg/dL Phosphorus Level 4.1 2.5-4.9 mg/dL Iron Level 50 50-170 mcg/dL Total Iron Binding Capacity 306 250-450 mcg/dL Percent Iron Saturation 16.3 L 22-44 % Ferritin 129 15-150 ng/mL Direct Bilirubin 0.1 0.0-0.3 mg/dL Ammonia < 10 L 11-32 umol/L Total Creatine Kinase 58 21-232 U/L Amylase Level 88 25-115 U/L Lipase 67 16-77 U/L Procalcitonin 0.07 0.05-0.5 ng/mL Thyroid Stimulating Hormone (TSH) 0.73 0.36-3.74 uIU/mL Free Thyroxine (T4) Direct 1.29 0.76-1.46 ng/dL Free Triiodothyronine (T3) pg/mL 1.34 L 2.18-3.98 pg/mL Urine Color LIGHT-YELLOW YELLOW Urine Appearance CLEAR CLEAR Urine pH 6.0 5.0-8.0 Urine Specific Atkins 1.018 1.001-1.031 Urine Protein 100 H NEGATIVE mg/dL Urine Glucose (UA) >=1000 H NEGATIVE mg/dL Urine Ketones NEGATIVE NEGATIVE mg/dL Urine Occult Blood SMALL H NEGATIVE Urine Nitrate NEGATIVE NEGATIVE Urine Bilirubin NEGATIVE NEGATIVE mg/dL Urine Urobilinogen 0.2 0.2-1.0 mg/dL Urine Leukocyte Esterase NEGATIVE NEGATIVE Guzman/uL Urine RBC 6-10 H 0-1 /HPF Urine WBC 6-10 H 0-1 /HPF Urine Squamous Epithelial Cells RARE 0-2 /HPF Urine Bacteria RARE None Seen /HPF Influenza Type A Antigen Negative For Type A NEGATIVE Influenza Type B Antigen Negative For Type B NEGATIVE SARS-CoV-2 Antigen (Rapid) PRESUMPTIVE NEGATIVE NEGATIVE Test 01/15/25 16:22 01/15/25 12:48 Range/Units Hemoglobin (Blood Gas) 12.9 12.0-16.0 g/dL Sodium (Blood Gas) 139 136-145 MMOL/L Bedside Potassium (Blood Gas) 4.6 H 3.4-4.5 MMOL/L Bedside Chloride (Blood Gas) 104 98-107 MMOL/L Bedside Glucose (Blood Gas) 219 H 65-95 MG/DL Bedside Ionized Calcium (Blood Gas) 1.20 1.15-1.33 MMOL/L Bedside Lactic Acid (Blood Gas) 1.15 H 0.36-0.75 MMOL/L Folic Acid (LAB) > 20.00 H 2-20 ng/mL Current Medications Medications (Trade) Dose Ordered Sig/Hilda Route PRN Reason Start Time Stop Time Status Last Admin Dose Admin Acetaminophen (TYLenol 325MG TAB) 650 mg Q4H PRN PO MILD PAIN (1-3) 01/15/25 14:30 02/14/25 14:29 01/16/25 05:48 650 MG Acetaminophen (TYLenol 325MG TAB) 650 mg Q6H PRN PO MILD PAIN (1-3) 01/15/25 14:30 01/15/25 14:26 DC Acetaminophen (TYLenol 325MG TAB) 650 mg Q6H PRN PO TEMPERATURE GREATER THAN 101.5 01/15/25 14:30 11/1/25 14:29 Al Hydroxide/Mg Hydroxide (MAALox PLUS 30ML) 30 ml Q6H PRN PO INDIGESTION 01/15/25 14:30 02/14/25 14:29 Amiodarone HCl (pacERONE 200MG) 200 mg DAILY PO 01/17/25 09:00 02/16/25 08:59 01/17/25 09:15 200 MG Amlodipine Besylate (NorvASC 5MG TAB) 10 mg DAILY PO 01/17/25 09:00 02/16/25 08:59 01/17/25 07:54 10 MG Atorvastatin Calcium (LIPItor 40MG) 80 mg HS PO 01/16/25 21:00 02/15/25 20:59 01/16/25 19:56 80 MG Clindamycin HCl/ Dextrose 50 ml @ 100 mls/hr Q8H IV 01/15/25 14:30 01/15/25 22:29 DC 01/15/25 15:03 100 MLS/HR Clindamycin HCl/ Dextrose 50 ml @ 100 mls/hr Q8H IV 01/16/25 02:00 01/26/25 01:59 01/17/25 09:17 100 MLS/HR Clindamycin HCl/ Dextrose 50 ml @ 100 mls/hr Q8H STAT IV 01/15/25 12:36 01/15/25 13:05 DC 01/15/25 12:53 100 MLS/HR Clopidogrel Bisulfate (plaVIX 75MG) 75 mg DAILY PO 01/17/25 09:00 02/16/25 08:59 01/17/25 07:55 75 MG Dextrose (D50w) 50 ml AD PRN IV HYPOGLYCEMIA PROTOCOL 01/15/25 14:30 02/14/25 14:29 Diphenhydramine HCl (BENAdryl INJ) 25 mg Q6H PRN IV SEVERE ITCHING/RASH 01/15/25 14:30 02/14/25 14:29 Empaglifozin (Jardiance 10mg) 10 mg DAILY PO 01/17/25 09:00 02/16/25 08:59 01/17/25 07:55 10 MG Ergocalciferol (Drisdol) 50,000 unit QWEEK PO 01/23/25 09:00 02/22/25 08:59 Famotidine (Pepcid 20mg Vial) 20 mg BID PRN IV NAUSEA/VOMITING 01/15/25 14:30 01/15/25 14:26 DC Famotidine (Pepcid 20mg Vial) 20 mg Q48H IV 01/15/25 21:00 02/14/25 20:59 01/15/25 20:32 20 MG Glucagon (Glucagon 1mg Kit) 1 mg AD PRN IM HYPOGLYCEMIA PROTOCOL 01/15/25 14:30 02/14/25 14:29 Guaifenesin/ Dextromethorphan (RobiTUSSin DM 200/20MG 10ML) 10 ml Q4H PRN PO COUGH 01/15/25 14:30 02/14/25 14:29 Heparin Sodium (Porcine) (HEParin 5,000 UNIT VIAL) 5,000 unit BID SQ 01/15/25 21:00 02/14/25 20:59 01/17/25 07:54 5,000 UNIT Home Med (Home Medication) (Finerenone (Kerendia) 10 MG) DAILY PO 01/17/25 09:00 02/16/25 08:59 01/17/25 09:14 1 EACH Hydralazine HCl (APRESOLine 20MG INJ) 10 mg Q6H PRN IV For:SBP above 160;DBP above 90 01/15/25 14:30 02/14/25 14:29 Ibuprofen (moTRIN) 600 mg Q8H PRN PO MODERATE PAIN (4-6) 01/15/25 14:30 02/14/25 14:29 01/17/25 01:26 600 MG Insulin Human Regular (humuLIN R 100 UNIT/ML 3ML) INSULIN SLIDING SCAL... ACHS SQ 01/15/25 16:30 02/14/25 16:29 01/16/25 20:39 6 UNIT Isosorbide Mononitrate (Imdur 30mg Sr) 30 mg DAILY PO 01/17/25 09:00 02/16/25 08:59 01/17/25 07:55 30 MG Ketorolac Tromethamine (toRADol) 15 mg Q8H PRN IV MODERATE PAIN (4-6) 01/15/25 14:30 01/15/25 14:29 DC Lactulose (Constulose 20gm/ 30ml Udcup) 20 gm BID PRN PO CONSTIPATION 01/15/25 14:30 02/14/25 14:29 Losartan Potassium (CozAAR 50 mg TAB) 50 mg DAILY PO 01/17/25 09:00 02/16/25 08:59 01/17/25 07:55 50 MG Magnesium Sulfate 50 ml @ 0 mls/hr PROTOCOL PRN IV other 01/15/25 14:30 02/14/25 14:29 Metoprolol Succinate (TopROL XL) 25 mg DAILY PO 01/17/25 09:00 02/16/25 08:59 01/17/25 07:55 25 MG Morphine Sulfate (morPHINE 4MG SYG) 1 mg Q4H PRN IVP SEVERE PAIN (7-10) 01/15/25 15:00 01/22/25 14:59 Nitroglycerin (Nitrostat) 0.4 mg AD SL 01/16/25 11:30 01/16/25 11:16 DC Nitroglycerin (Nitrostat) 0.4 mg PROTOCOL PRN SL CHEST PAIN 01/15/25 14:30 02/14/25 14:29 Ondansetron HCl (zoFRAN 4MG INJ) 4 mg Q6H PRN IV NAUSEA/VOMITING 01/15/25 14:30 02/14/25 14:29 Pharmacy Profile Note (Pharmacy Communication) 1 each ONCE MISC 01/15/25 13:30 01/15/25 19:00 DC 01/15/25 13:24 1 EACH Pharmacy Profile Note (Pharmacy Communication) 1 each ONCE MISC 01/16/25 18:00 01/17/25 09:50 DC Potassium Chloride 100 ml @ 100 mls/hr AD PRN IV POTASSIUM PROTOCOL 01/15/25 14:30 02/14/25 14:29 Potassium Chloride (K-Dur 10meq Sr Tab) 10 meq AD PRN PO POTASSIUM PROTOCOL 01/16/25 10:30 02/14/25 14:29 01/17/25 07:01 10 MEQ Potassium Chloride (K-Dur/Klor-Con 20meq) 10 meq AD PRN PO POTASSIUM PROTOCOL 01/15/25 14:30 01/16/25 10:22 DC Potassium Chloride (KCl 10% Elixir 20meq/15ml) 10 meq AD PRN PO POTASSIUM PROTOCOL 01/15/25 14:30 02/14/25 14:29 Sodium Bicarbonate (Sodium Bicarbonate) 650 mg QID PO 01/17/25 13:00 02/16/25 12:59 Sodium Chloride 1,000 ml @ 100 mls/hr Q10H IV 01/15/25 14:30 02/14/25 14:29 01/17/25 07:26 100 MLS/HR Vitamin B Complex/ Vit C/Folic Acid (Nephrovite Tablet) 1 cap DAILY PO 01/16/25 09:00 02/15/25 08:59 01/17/25 07:54 1 CAP Zolpidem Tartrate (AmbIEN) 5 mg HS PRN PO INSOMNIA 01/15/25 14:30 02/14/25 14:29 DIAGNOSTICS / RADIOLOGY: [ ] ASSESSMENT: Acute kidney injury POA Periodontal inflammatory patient's/infection POA History of kidney cancer s/p left nephrectomy Uncontrolled diabetes mellitus type 2 with hypoglycemia Hyperlipidemia, POA Hypertension POA 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 Creatinine level slowly improving at 2.5. Initial chest x-ray moderate global cardiomegaly, no evidence of airspace consolidation or pulmonary venous congestion. CT maxillofacial showing bilateral maxillary sinusitis more pronounced of the right as compared to the left with mucus periosteal thickening. Renal ultrasound limited due to left kidney not seen, remained in study appears normal. 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 We will request Cardiology consultation. Urine culture greater than [id number] CFU, identification in process. Continue broad-spectrum IV antibiotics. Venous blood gas ordered, patient with a metabolic acidosis, with pH of 7.28, we will give 100 mEq of sodium bicarbonate IV, and we will start the patient on sodium bicarbonate 650 mg p.o. q.i.d.. Continue to follow Nephrology input recommendation. We will upgraded the patient to the PCU. Plan of action discussed with the patient, all questions answered, agreed and understood the information provided. Admit to medical-surgical floor Start clindamycin for a dental infection Normal saline at 100 mL/hour PRN medication Initiate hyper or hypokalemia protocol Initiate hyper hypoglycemia protocol Hypomagnesemia protocol Urine culture Urinalysis negative Blood culture pending Consistent carbs 60 to 75 g PT eval request Case management for evaluation] PARISA MEHTA MD Jan 17, 2025 10:00
[2025-01-17] MEDS: SODIUM BICARB 50MEQ 50ML VIAL IV ONE (10:20)
--- NOTE | 2025-01-17 11:02 | NUR ---
Report given to ALEXIS Wolfe. Pt's latest V/S 139/85mmHg Temp 97.5 HR 74 O2 Sat 95% on RA. No acute distress noted. Pt. transported via bed to Room 404.
[2025-01-17] MEDS: SODIUM BICARBONATE 650 MG TAB PO SCH (13:05)
--- NOTE | 2025-01-17 20:51 | NUR ---
PATIENT REPORTS THAT SHE HAS HISTORY OF CONGESTIVE HEART FAILURE AND SHE IS FEELING SHORT OF BREATH ON EXERTION AFTER RECEIVING IV FLUIDS TODAY. HER BREATHING IS EVEN AND NONLABORED. SATURATING ON ROOM AIR AT 94%. LUNGS SOUNDS ARE CLEAR. PATIENT IS REFUSING TO BE CONNECTED TO IV FLUIDS AT THIS TIME. PLAN OF CARE ONGOING.
[2025-01-18] VITALS (8 sets, daily range): BP systolic 145–161; BP diastolic 79–91; PULSE 75–93; RESP 17–19; TEMP 97.5–98.9; O2SAT 94
[2025-01-18 04:09] LABS: NUCLEATED RED BLOOD CELLS 0.0 % (0.0-0.19); PLATELET COUNT (AUTO) 155.0 K/uL (130-400); RED BLOOD CELL COUNT(AUTO) 3.1 MIL/uL (4.00-5.50); RED CELL DISTRIBUTION WIDTH 14.1 % (11.0-15.5); WHITE BLOOD COUNT (AUTO) 11.1 K/uL (4.8-10.8)
[2025-01-18 04:43] LABS: ASPARTATE AMINOTRANSFERASE 14.0 U/L (10-37); CREATININE 2.2 mg/dL (0.5-1.0); GLOMERULAR FILTR. RATE CALC 25.0 mL/min (>90); GLUCOSE,RANDOM 102.0 mg/dL (70-105); SODIUM SERUM 142.0 mmol/L (136-145); TOTAL PROTEIN, SERUM 7.2 g/dL (6.0-8.3); UREA NITROGEN, BLOOD 40.0 mg/dL (7-18)
--- NOTE | 2025-01-18 07:39 | NUR ---
DECREASED O2 SATS Morning vitals obtained, patient O2 sats at 82% on room air. Positioned up in bed. 2L via nasal canula applied. Oxygen saturation increased to 91%. Will continue to monitor.
--- NOTE | 2025-01-18 10:26 | PN ---
NEPHROLOGY PROGRESS NOTE Date/Time Patient Seen: Jan 18, 2025 SUBJECTIVE: This is 59 years old female with a past medical history of kidney cancer, s/p left nephrectomy, diabetes, hypertension, hyperlipidemia, who came to emergency department with a complaint of right facial pain. CT maxilla patient was show sinusitis. Pending final urine cultures She continues on antibiotics She was noted with elevated BUN/creatinine We are consulted for renal failure Renal function is improving Electrolytes are stable. Renal ultrasound was noted. She was seen in the medical floor, in no acute distress No family at the bedside Prognosis remains guarded REVIEW OF SYSTEMS: GENERAL: Negative for any nausea, vomiting, fevers, chills, or weight loss. NEUROLOGIC: Negative for any blurry vision, blind spots, double vision, facial asymmetry, dysphagia, dysarthria, hemiparesis, hemisensory deficits, vertigo, ataxia. HEENT: Negative for any head trauma, neck trauma, neck stiffness, photophobia, phonophobia, sinusitis, rhinitis. CARDIAC: Negative for any chest pain, dyspnea on exertion, paroxysmal nocturnal dyspnea, peripheral edema. PULMONARY: Negative for any shortness of breath, wheezing, COPD, or TB exposure. GASTROINTESTINAL: Negative for any abdominal pain, nausea, vomiting, bright red blood per rectum, melena. GENITOURINARY: Negative for any dysuria, hematuria, incontinence. INTEGUMENTARY: Negative for any rashes, cuts, insect bites. RHEUMATOLOGIC: Negative for any joint pains, photosensitive rashes, history of vasculitis or kidney problems. HEMATOLOGIC: Negative for any abnormal bruising, frequent infections or bleeding. Vital Signs (last 8hr) Date Time Temp Pulse Resp B/P (MAP) Pulse Ox O2 Delivery O2 Flow Rate FiO2 01/18/25 08:03 97.5 87 17 159/82 91 Nasal Cannula 2.0 01/18/25 08:00 94 Nasal Cannula* 2 28 01/18/25 04:56 98.1 87 19 159/79 93 Nasal Cannula 2.0 PHYSICAL EXAM: GENERAL: Alert and oriented x 3. No acute distress. Well-nourished. EYES: EOMI. Anicteric. HENT: Moist mucous membranes. No scleral icterus. No cervical lymphadenopathy. LUNGS: Clear to auscultation bilaterally. No accessory muscle use. CARDIOVASCULAR: Regular rate and rhythm. No murmur. No JVD. ABDOMEN: Soft, non-tender and non-distended. No palpable masses. EXTREMITIES: No edema. Non-tender. SKIN: No rashes or lesions. Warm. NEUROLOGIC: No focal neurological deficits. CN II-XII grossly intact, but not individually tested. PSYCHIATRIC: Cooperative. Appropriate mood and affect. Current Medications Medications (Trade) Dose Ordered Sig/Hilda Route PRN Reason Start Time Stop Time Status Last Admin Dose Admin Acetaminophen (TYLenol 325MG TAB) 650 mg Q4H PRN PO MILD PAIN (1-3) 01/15/25 14:30 02/14/25 14:29 01/16/25 05:48 650 MG Acetaminophen (TYLenol 325MG TAB) 650 mg Q6H PRN PO MILD PAIN (1-3) 01/15/25 14:30 01/15/25 14:26 DC Acetaminophen (TYLenol 325MG TAB) 650 mg Q6H PRN PO TEMPERATURE GREATER THAN 101.5 01/15/25 14:30 02/14/25 14:29 Al Hydroxide/Mg Hydroxide (MAALox PLUS 30ML) 30 ml Q6H PRN PO INDIGESTION 01/15/25 14:30 02/14/25 14:29 Amiodarone HCl (pacERONE 200MG) 200 mg DAILY PO 01/17/25 09:00 02/16/25 08:59 Amlodipine Besylate (NorvASC 5MG TAB) 10 mg DAILY PO 01/17/25 09:00 02/16/25 08:59 Atorvastatin Calcium (LIPItor 40MG) 80 mg HS PO 01/16/25 21:00 02/15/25 20:59 Clindamycin HCl/ Dextrose 50 ml @ 100 mls/hr Q8H IV 01/15/25 14:30 01/15/25 22:29 DC 01/15/25 15:03 100 MLS/HR Clindamycin HCl/ Dextrose 50 ml @ 100 mls/hr Q8H IV 01/16/25 02:00 01/26/25 01:59 01/16/25 08:18 100 MLS/HR Clindamycin HCl/ Dextrose 50 ml @ 100 mls/hr Q8H STAT IV 01/15/25 12:36 01/15/25 13:05 DC 01/15/25 12:53 100 MLS/HR Clopidogrel Bisulfate (plaVIX 75MG) 75 mg DAILY PO 01/17/25 09:00 02/16/25 08:59 Dextrose (D50w) 50 ml AD PRN IV HYPOGLYCEMIA PROTOCOL 01/15/25 14:30 02/14/25 14:29 Diphenhydramine HCl (BENAdryl INJ) 25 mg Q6H PRN IV SEVERE ITCHING/RASH 01/15/25 14:30 02/14/25 14:29 Empaglifozin (Jardiance 10mg) 10 mg DAILY PO 01/17/25 09:00 02/16/25 08:59 Ergocalciferol (Drisdol) 50,000 unit QWEEK PO 01/23/25 09:00 02/22/25 08:59 Famotidine (Pepcid 20mg Vial) 20 mg BID PRN IV NAUSEA/VOMITING 01/15/25 14:30 01/15/25 14:26 DC Famotidine (Pepcid 20mg Vial) 20 mg Q48H IV 01/15/25 21:00 02/14/25 20:59 01/15/25 20:32 20 MG Glucagon (Glucagon 1mg Kit) 1 mg AD PRN IM HYPOGLYCEMIA PROTOCOL 01/15/25 14:30 02/14/25 14:29 Guaifenesin/ Dextromethorphan (RobiTUSSin DM 200/20MG 10ML) 10 ml Q4H PRN PO COUGH 01/15/25 14:30 02/14/25 14:29 Heparin Sodium (Porcine) (HEParin 5,000 UNIT VIAL) 5,000 unit BID SQ 01/15/25 21:00 02/14/25 20:59 01/16/25 08:24 5,000 UNIT Home Med (Home Medication) (Finerenone (Kerendia) 10 MG) DAILY PO 01/17/25 09:00 02/16/25 08:59 Hydralazine HCl (APRESOLine 20MG INJ) 10 mg Q6H PRN IV For:SBP above 160;DBP above 90 01/15/25 14:30 02/14/25 14:29 Ibuprofen (moTRIN) 600 mg Q8H PRN PO MODERATE PAIN (4-6) 01/15/25 14:30 02/14/25 14:29 Insulin Human Regular (humuLIN R 100 UNIT/ML 3ML) INSULIN SLIDING SCAL... ACHS SQ 01/15/25 16:30 02/14/25 16:29 01/16/25 11:34 10 UNIT Isosorbide Mononitrate (Imdur 30mg Sr) 30 mg DAILY PO 01/17/25 09:00 02/16/25 08:59 Ketorolac Tromethamine (toRADol) 15 mg Q8H PRN IV MODERATE PAIN (4-6) 01/15/25 14:30 01/15/25 14:29 DC Lactulose (Constulose 20gm/ 30ml Udcup) 20 gm BID PRN PO CONSTIPATION 01/15/25 14:30 02/14/25 14:29 Losartan Potassium (CozAAR 50 mg TAB) 50 mg DAILY PO 01/17/25 09:00 02/16/25 08:59 Magnesium Sulfate 50 ml @ 0 mls/hr PROTOCOL PRN IV other 01/15/25 14:30 02/14/25 14:29 Metoprolol Succinate (TopROL XL) 25 mg DAILY PO 01/17/25 09:00 02/16/25 08:59 Morphine Sulfate (morPHINE 4MG SYG) 1 mg Q4H PRN IVP SEVERE PAIN (7-10) 01/15/25 15:00 01/22/25 14:59 Nitroglycerin (Nitrostat) 0.4 mg AD SL 01/16/25 11:30 01/16/25 11:16 DC Nitroglycerin (Nitrostat) 0.4 mg PROTOCOL PRN SL CHEST PAIN 01/15/25 14:30 02/14/25 14:29 Ondansetron HCl (zoFRAN 4MG INJ) 4 mg Q6H PRN IV NAUSEA/VOMITING 01/15/25 14:30 02/14/25 14:29 Pharmacy Profile Note (Pharmacy Communication) 1 each ONCE MISC 01/15/25 13:30 01/15/25 19:00 DC 01/15/25 13:24 1 EACH Potassium Chloride 100 ml @ 100 mls/hr AD PRN IV POTASSIUM PROTOCOL 01/15/25 14:30 02/14/25 14:29 Potassium Chloride (K-Dur 10meq Sr Tab) 10 meq AD PRN PO POTASSIUM PROTOCOL 01/16/25 10:30 02/14/25 14:29 Potassium Chloride (K-Dur/Klor-Con 20meq) 10 meq AD PRN PO POTASSIUM PROTOCOL 01/15/25 14:30 01/16/25 10:22 DC Potassium Chloride (KCl 10% Elixir 20meq/15ml) 10 meq AD PRN PO POTASSIUM PROTOCOL 01/15/25 14:30 02/14/25 14:29 Sodium Chloride 1,000 ml @ 100 mls/hr Q10H IV 01/15/25 14:30 02/14/25 14:29 01/16/25 11:51 100 MLS/HR Vitamin B Complex/ Vit C/Folic Acid (Nephrovite Tablet) 1 cap DAILY PO 01/16/25 09:00 02/15/25 08:59 01/16/25 08:18 1 CAP Zolpidem Tartrate (AmbIEN) 5 mg HS PRN PO INSOMNIA 01/15/25 14:30 02/14/25 14:29 LABORATORY: [ ] Hematology Labs: Test 01/18/25 03:49 01/17/25 03:59 Range/Units White Blood Count 11.1 H 4.8-10.8 K/uL Red Blood Count 3.10 L 4.00-5.50 MIL/uL Hemoglobin 10.2 L 12.0-16.0 g/dL Hematocrit 30.0 L 36-48 % Mean Corpuscular Volume 96.8 79-99 fL Mean Corpuscular Hemoglobin 32.9 27.0-33.0 pg Mean Corpuscular Hemoglobin Concent 34.0 32.0-36.0 g/dL Red Cell Distribution Width 14.1 11.0-15.5 % Platelet Count 155 130-400 K/uL Mean Platelet Volume 10.0 7.5-10.5 fL Nucleated Red Blood Cells 0.0 0.0-0.19 % Immature Granulocyte % (Auto) 0.3 0-1 % Neutrophils (%) (Auto) 77.9 H 40.0-77.0 % Lymphocytes (%) (Auto) 14.5 L 21.0-51.0 % Monocytes (%) (Auto) 6.1 3.0-13.0 % Eosinophils (%) (Auto) 1.0 0.0-8.0 % Basophils (%) (Auto) 0.2 0.0-5.0 % Neutrophils # (Auto) 8.9 H 1.8-7.7 K/uL Lymphocytes # (Auto) 1.7 1.0-4.8 K/uL Monocytes # (Auto) 0.7 0.1-1.0 K/uL Eosinophils # (Auto) 0.11 0.00-0.70 K/uL Basophils # (Auto) 0.02 0.00-0.20 K/uL Absolute Immature Granulocyte (auto 0.04 0-1 K/uL Chemistry Labs: Test 01/18/25 05:48 01/18/25 03:49 01/17/25 16:14 01/17/25 03:59 Range/Units Whole Blood Glucose 95 # 70-110 MG/DL Sodium Level 142 136-145 mmol/L Potassium Level 3.8 3.5-5.1 mmol/L Chloride Level 110 101-111 mmol/L Carbon Dioxide Level 19 L 21-32 mmol/L Blood Urea Nitrogen 40 H 7-18 mg/dL Creatinine 2.2 H 0.5-1.0 mg/dL Glomerular Filtration Rate Calc 25 >90 mL/min Random Glucose 102 70-105 mg/dL Total Calcium 7.9 L 8.5-10.1 mg/dL Magnesium Level 1.80 1.80-2.40 mg/dL Total Bilirubin 0.8 # 0.2-1.0 mg/dL Aspartate Amino Transf (AST/SGOT) 14 10-37 U/L Alanine Aminotransferase (ALT/SGPT) 15 12-78 U/L Alkaline Phosphatase 169 H 50-136 U/L Total Protein 7.2 6.0-8.3 g/dL Albumin 2.9 L 3.5-5.0 g/dL Bedside Glucose Comment Notified Nurse B-Type Natriuretic Peptide 913 H 0-100 pg/mL DIAGNOSTICS / RADIOLOGY: [address] [address] IMAGING REPORT Signed PATIENT: INGRID BORREGO MR#: [id number] : 1965 SEX: F AGE: 59 LOCATION: 1MS ORDER 14 STATUS: ADM IN REPORT#: [id number] SERVICE 111 REASON: chf ORDERING PHYSICIAN: LOUIS NEFF APRN PROCEDURE: ECHO CMP - ECHO 2-D COMPLETE APPROVED REPORT EXAM: Two-dimensional and M-mode echocardiogram with Doppler and color Doppler. INDICATION ICD: Heart Failure 2D Dimensions RVDd 4.0 cm LVEF(%) 68.2 (>50%) LVED Vol(simp.) 79.7 mL IVSd 1.1 (0.7-1.1cm) FS(%) 38 % LVES Vol(simp.) 44.5 mL LVDd 4.3 (3.8-5.6cm) LA (2D) 6.1 (1.6-4.0cm) LVEF(%, simp.) 44 % PWd 1.1 (0.7-1.1cm) Ao Root(2D) 2.7 (2.0-3.7cm) LA ESV INDEX (BP) 62.75 mL/m2 LVDs 2.7 (2.5-4.0cm) LVOT diam 2.0 (1.8-2.4cm) IVC diam 1.6 cm Deformation Strain Apical 4 -11.1 % Apical 2 -13.7 % Apical 3 -11.4 % Global Strain -12.1 % M-Mode Dimensions EPSS 0.9 cm LA (MM) 4.7 (1.6-4.0cm) Ao Root(MM) 2.5 (2.0-3.7cm) Aortic Valve AoV Vmax 1.5 m/s Ao Peak GR 8.9 mmHg LVOT Vmax 1.0 m/s AoV VTI 0.3 m Ao Mean GR 5.0 mmHg LVOT VTI 0.23 m BEN (VMAX) 1.99 cm2 BEN (VTI) 2.0 cm2 Mitral Valve MV E Vmax 144.2 cm/s DECEL Time 200 ms MV Peak GR 11 mmHg MV A Vmax 88.7 cm/s P 1/2 T 65 ms MV Mean GR 5 mmHg E/A ratio 1.6 MVA (PHT) 3.4 cm2 MVA (VTI) 1.85 cm2 TDI E/E' Medial 21.3 E/E' Lateral 20.3 Medial E' Peak V 6.77 cm/s Lateral E' Peak V 7.09 cm/s Pulmonary Valve PV Vmax 1.1 m/s PV VTI 0.26 m PV Mean GR 2.6 mmHg PV Peak GR 4.6 mmHg Left Ventricle The left ventricle is normal size. There is normal left ventricular wall thickness. LVEF is 50-55%. 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 Right Ventricle The right ventricle is normal size. The right ventricular systolic function is normal. Atria The left atrium is severely dilated. The right atrium size is normal. Aortic Valve The aortic valve is normal in structure. No aortic regurgitation is present. There is no aortic valvular stenosis. Mitral Valve The mitral valve is normal in structure. Mitral regurgitation is mild. There is no mitral valve stenosis. Tricuspid Valve The tricuspid valve is normal in structure. There is no tricuspid valve regurgitation noted. Pulmonic Valve The pulmonary valve is normal in structure. There is no pulmonic valvular regurgitation. Great Vessels The aortic root is normal in size. The IVC is normal in size and collapses >50% with inspiration. Pericardium There is no pericardial effusion. 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 DICTATED BY: JESSICA BRADFORD MD DATE: 01/16/25 1331 ELECTRONICALLY SIGNED BY: JESSICA BRADFORD MD DATE: 01/16/25 1527 PATIENT: INGRID BORREGO MR#: [id number] : 1965 SEX: F AGE: 59 LOCATION: EDHIP ORDER 1423 STATUS: ADM IN [facility] REPORT#: [id number] SERVICE 1415 REASON: jason ORDERING PHYSICIAN: LOUIS NEFF APRN PROCEDURE: RENAL - US RENAL SONOGRAM US RENAL SONOGRAM Indication: jason Technique: Renal ultrasound was performed by a medical sociologist and reviewed by a radiologist. Findings: Right Kidney: Measures 11.0 x 7.0 x 7.0 cm. Unremarkable sonographic appearance without focal lesions or hydronephrosis. Left Kidney: Left kidney is obscured and not seen due to overlying bowel gas and large body habitus. Urinary bladder: Unremarkable. The prevoid volume is 140.05 cc. The post void residual is not obtained. The urinary bladder wall thickness is 0.28 cm. Impression: There is limited due to left kidney not seen The remaining study otherwise appears to be normal. DICTATED BY: ERIN DANIEL MD DATE: 01/15/251612 ELECTRONICALLY SIGNED BY: ERIN DANIEL MD DATE: 01/15/251616 PATIENT: INGRID BORREGO MR#: [id number] : 1965 SEX: F AGE: 59 LOCATION: EDHIP ORDER 22 STATUS: ADM IN REPORT#: [id number] SERVICE 141 REASON: peridontal infection ORDERING PHYSICIAN: LOUIS NEFF APRN PROCEDURE: MAXFACI WO - CT MAXILLOFACIAL W/O CONTRAST CT MAXILLOFACIAL W/O CONTRAST CLINICAL HISTORY: peridontal infection COMPARISON: None TECHNIQUE: Thin axial images were obtained through the facial bones/orbits without the use of intravenous contrast. Coronal and sagittal reformatted images were also submitted for interpretation. CONTRAST: mL of Isovue FINDINGS: NASAL REGION: The nasal bones, frontal processes of the maxilla, and lamina papyracea are intact. The ethmoid air cells are clear. The nasal septum is not deviated. and the nasal spine is intact. ORBITS: The orbital awad, floor, roof and rims are intact. The globes are symmetric and intact. There is no dislocation of the lens. Extraocular muscles are symmetric. Retro-ocular soft tissues are clear. ZYGOMA: The zygomatic arch, inferior and lateral orbital rim, and lateral and anterior awad of the maxilla are intact. MAXILLARY REGION: The alveolar, pterygoid and palatine processes are intact. Maxillary sinuses demonstrate there is bilateral mucoperiosteal thickening or prominence of the right as compared to the left. The remaining paranasal sinuses the ethmoid sphenoid and frontal air cells are well aerated.. MANDIBLE: The symphysis, body and ramus are intact. Coronoid process and alveolar ridges are unremarkable in appearance. No dislocation or fracture of the condyles. SOFT TISSUES: There is no soft tissue swelling or subcutaneous emphysema. The included brain is unremarkable. Visualized portions of the cervical spine look unremarkable. IMPRESSION: Bilateral maxillary sinusitis more pronounced on the right as compared to the left with mucous periosteal thickening. DICTATED BY: ERIN DANIEL MD DATE: 01/15/25 1529 ELECTRONICALLY SIGNED BY: ERIN DANIEL MD DATE: 01/15/25 153 PATIENT: INGRID BORREGO MR#: [id number] : 1965 SEX: F AGE: 59 LOCATION: EDHIP ORDER 22 STATUS: ADM IN [facility] REPORT#: [id number] SERVICE 1415 REASON: congestion ORDERING PHYSICIAN: LOUIS NEFF APRN PROCEDURE: CXR1VW - CHEST 1VW CHEST 1VW REASON: congestion COMPARISON: None. FINDINGS: Single view of the chest was obtained. Lungs are clear. There is moderate cardiomegaly.. There is no pulmonary vascular congestion. Mediastinum and bony thorax appear unremarkable. IMPRESSION: 1. Moderate global cardiomegaly. 2. No evidence of airspace consolidation or pulmonary venous congestion DICTATED BY: ERIN DANIEL MD DATE: 01/15/25 151 ELECTRONICALLY SIGNED BY: ERIN DANIEL MD DATE: 01/15/251512 ASSESSMENT: Acute kidney injury Periodontal inflammatory patient's/infection History of kidney cancer s/p left nephrectomy Uncontrolled diabetes mellitus type 2 Hyperlipidemia, Hypertension PLAN: Labs, diagnostic, radiologic exams reviewed and interpreted by myself and supervising physician. We have reviewed external records in detail Require close monitoring of renal function and electrolytes Order CBC, CMP, and electrolytes in am Continue with antibiotics Renal diabetic diet BiPAP as necessary, for respiratory distress Monitor blood pressure adjust medication doses as needed Avoid hypotensive episodes May use Dilaudid 0.5 mg IV every 6 hours as needed for severe pain Monitor blood sugars Strict intake, output, and daily weight should be monitored Please renally adjust medications Avoid nephrotoxic and nonsteroidal drugs Avoid contrast if possible Will continue to monitor renal function, anemia, electrolytes Treatment plan discussed with patient Questions were answered We have discussed with the other team physicians in detail about the care plan We will continue to monitor the patient closely ATTESTATION BY PHYSICIAN I have seen and examined the patient. I reviewed the documentation, medical decision making, and treatment plan as noted by the mid-level provider above. I agree with the findings and plan of care. MEREDITH ALEXANDER MD, [employer] Jan 18, 2025 10:26
--- NOTE | 2025-01-18 12:29 | PN ---
[facility] PROGRESS NOTE Date of Service: Jan 18, 2025 Time of Service: 12:25 Attending doctor Josr SUBJECTIVE: [ 01/15 Patient is 59 years old female with a past medical history of kidney cancer, s/p left nephrectomy, diabetes, hypertension, hyperlipidemia, who came to emergency department with a complaint of right facial pain. Patient stated that recently she was seen by a dentist due to infected molar the pain is unbearable so patient decided to come to emergency department for further evaluation/recommendations. During examination patient was found to be in acute kidney disease. When asked if patient ever follow up with seismic prospecting observer helper patient stated that she did know that she had some kidney problems which she never follow up with anyone outpatient. Most recent vital signs temperature 98.2 pulse 60 respirations 16 blood pressure 146/78 patient is on room air satting 98%. WBC 8.6 hemoglobin 12 hematocrit 35.4 platelets 197. Sodium 135 potassium 4.1 CO2 20 BUN 54 creatinine 3.6 GFR 14 iron 42 folic acid more than 20 chest x-ray showed moderate global cardiomegaly no evidence of consolidation or pulmonary venous congestion. CT maxillofacial was performed pending results. We also order ultrasound renal to evaluate for TIERNEY versus CKD . Patient will be admitted under hospitalist for further evaluation/recommendation. Manager New Product will be consulted for TIERNEY. 01/16 patient was seen by nurse practitioner and physician during rounding in [id number], comfortably lying in the bed. Patient's creatinine has improved today is at 3.1 BUN 57 and GFR 16. We are still pending further recommendations/plan from the seismic prospecting observer helper. Home medication were reconciled by GED TEACHER. Patient's BNP is 847. Based on home medication patient normally is on furosemide 40 mg b.i.d.. We will order 2D echo. Chest x-ray showed moderate cardiomegaly. CT maxilla facial shows sinusitis. Renal ultrasound there is limited due to left kidney not seen. As per patient she had left nephrectomy done in [place]. We will continue to monitor patient in the meantime. A.m. labs] 01/17 patient is seen and examined at bedside, case discussed with the RN, no acute events overnight, the time of my visit comfortably in bed, alert oriented x3, hemodynamically stable, getting supportive care with IV fluids. Creatinine level slowly improving at 2.5. Initial chest x-ray moderate global cardiomegaly, no evidence of airspace consolidation or pulmonary venous congestion. CT maxillofacial showing bilateral maxillary sinusitis more pronounced of the right as compared to the left with mucus periosteal thickening. Renal ultrasound limited due to left kidney not seen, remained in study appears normal. 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 We will request Cardiology consultation. Urine culture greater than [id number] CFU, identification in process. Continue broad-spectrum IV antibiotics. Venous blood gas ordered, patient with a metabolic acidosis, with pH of 7.28, we will give 100 mEq of sodium bicarbonate IV, and we will start the patient on sodium bicarbonate 650 mg p.o. q.i.d.. Continue to follow Nephrology input recommendation. We will upgraded the patient to the PCU. Plan of action discussed with the patient, all questions answered, agreed and understood the information provided. 01/18 patient was seen by nurse practitioner and physician during rounding in room 404. All the labs and results were reviewed by GED TEACHER. As per previous day conversation between Dr. Ovalles and hotshot superintendent. Patient had a workup done one year ago in [place] including MRI of the heart. Patient was not sure if she had a tumor or a clot that she normally follows up with a Dr. Dinesh maki as outpatient. She was taking Eliquis 5 mg p.o. b.i.d. and her last dose was about a week ago and she did not get any refills. Apparently per her PCP she did not needed Eliquis anymore. Patient is currently on Plavix for the stents to the coronary arteries. All the findings were discussed with Dr. 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 Patient we will continue to be on Plavix, no need for Eliquis. Follow-up with primary hotshot superintendent outpatient within 1 to 2 weeks. At this moment we are pending final urine culture. We will change clindamycin to Rocephin 2 g daily. Anticipated discharge within 24 hours. A.m. labs. REVIEW OF SYSTEMS CONSTITUTIONAL: Denies fevers, chills, or night sweats. No unintentional weight loss reported. NEUROLOGICAL: Denies headache, amaurosis fugax, motor weakness, sensory deficit, vertigo/spinning sensation, gait abnormalities, or tremors. ENT: No hearing loss, otalgia, otorrhea, rhinitis, rhinorrhea, hoarseness, or sore throat. Complains of periodontal pain improved CARDIOVASCULAR: Denies any exertional angina, dyspnea on exertion, orthopnea, paroxysmal nocturnal dyspnea, palpitations, life-threatening arrhythmias, claudication. PULMONARY: Denies any shortness of breath, cough, phlegm/sputum, hemoptysis, pleuritic chest pain. SLEEP: Denies morning headaches, daytime somnolence or napping. Denies difficulty falling asleep, staying asleep, waking from sleep. Denies knowledge of snoring. GASTROINTESTINAL: Denies any type of dysphagia to either liquids or solids. Denies nausea, vomiting, pyrosis, early satiety, abdominal pain, diarrhea, constipation, or changes in stool consistency or caliber. Denies coffee-ground emesis, hematemesis, hematochezia, or melanotic stools. GENITOURINARY: Denies frequency, urgency, nocturia, hematuria or incontinence (Storage/Irritative symptoms.) Low urinary stream, straining to void, urinary intermittency or hesitancy, splitting of the voiding stream, terminal dribbling. ENDOCRINOLOGIC: Denies polyuria, polydipsia, polyphagia or heat/cold intolerances. HEMATOLOGIC: Denies thrombophilia/previous clots, or coagulopathy/bleeding disorders. ONCOLOGIC: Denies personal history of malignancy. DERMATOLOGIC: Denies rashes or pruritus. PSYCHIATRIC: Denies any suicidal or homicidal ideation. Denies hallucinations. PHYSICAL EXAM GENERAL APPEARANCE: The patient is awake, alert, and oriented, in no acute cardiopulmonary distress. NEUROLOGICAL: Cranial nerves II-XII grossly intact. Motor is 5/5 in bilateral upper and lower extremities proximal to distal. No sensory deficits. HEENT: Face is symmetric. Pupils are equal and reactive. Extraocular movements are intact. NECK: Supple. No JVD. No thyromegaly. No submental, submandibular, pre- /postauricular, occipital or supraclavicular lymphadenopathy. CHEST: Normal chest expansion. No Telemetry. LUNGS: Absence of any rales, rhonchi or any wheezing. CARDIOVASCULAR: Regular. S1 and S2 normal. No appreciable rubs, murmurs or gallops. ABDOMEN: Soft, nontender, and nondistended. There is no rebound, voluntary guarding, or rigidity. : Deferred. No Davis. EXTREMITIES: Non-edematous and not cyanotic. No clubbing. Good capillary refill. SKIN: No skin breakdown. Vital Signs (last 8hr) Date Time Temp Pulse Resp B/P (MAP) Pulse Ox O2 Delivery O2 Flow Rate FiO2 01/18/25 11:30 97.5 75 18 145/80 92 Nasal Cannula 2.0 01/18/25 08:03 97.5 87 17 159/82 91 Nasal Cannula 2.0 01/18/25 08:00 94 Nasal Cannula* 2 28 01/18/25 04:56 98.1 87 19 159/79 93 Nasal Cannula 2.0 LABS: Laboratory: Test 01/18/25 11:23 01/18/25 03:49 01/17/25 16:14 01/17/25 09:41 Range/Units Whole Blood Glucose 143 #H 70-110 MG/DL White Blood Count 11.1 H 4.8-10.8 K/uL Red Blood Count 3.10 L 4.00-5.50 MIL/uL Hemoglobin 10.2 L 12.0-16.0 g/dL Hematocrit 30.0 L 36-48 % Mean Corpuscular Volume 96.8 79-99 fL Mean Corpuscular Hemoglobin 32.9 27.0-33.0 pg Mean Corpuscular Hemoglobin Concent 34.0 32.0-36.0 g/dL Red Cell Distribution Width 14.1 11.0-15.5 % Platelet Count 155 130-400 K/uL Mean Platelet Volume 10.0 7.5-10.5 fL Nucleated Red Blood Cells 0.0 0.0-0.19 % Sodium Level 142 136-145 mmol/L Potassium Level 3.8 3.5-5.1 mmol/L Chloride Level 110 101-111 mmol/L Carbon Dioxide Level 19 L 21-32 mmol/L Blood Urea Nitrogen 40 H 7-18 mg/dL Creatinine 2.2 H 0.5-1.0 mg/dL Glomerular Filtration Rate Calc 25 >90 mL/min Random Glucose 102 70-105 mg/dL Total Calcium 7.9 L 8.5-10.1 mg/dL Magnesium Level 1.80 1.80-2.40 mg/dL Total Bilirubin 0.8 # 0.2-1.0 mg/dL Aspartate Amino Transf (AST/SGOT) 14 10-37 U/L Alanine Aminotransferase (ALT/SGPT) 15 12-78 U/L Alkaline Phosphatase 169 H 50-136 U/L Total Protein 7.2 6.0-8.3 g/dL Albumin 2.9 L 3.5-5.0 g/dL Bedside Glucose Comment Notified Nurse Blood Gas Specimen Type Venous Arterial Blood Oxygen Saturation 59.0 L 94.0-98.0 % Venous Blood pH 7.289 L 7.320-7.430 Venous Blood pCO2 at Patient Temp 38 38-54 Venous Blood pO2 at Patient Temp 34.0 23.0-48.0 mmHg Venous Blood HCO3 17.6 L 22.0-29.0 Venous Blood Base Excess -8.3 L -2.0-3.0 Blood Gas Temperature 37.0 35.5-37.0 CELSIUS Blood Gas Vent Mode VBG ROOM AIR FiO2 21.0 % Blood Gas Specimen Comment VBGISRAEL Test 01/17/25 03:59 01/16/25 18:50 01/16/25 15:04 Range/Units Immature Granulocyte % (Auto) 0.3 0-1 % Neutrophils (%) (Auto) 77.9 H 40.0-77.0 % Lymphocytes (%) (Auto) 14.5 L 21.0-51.0 % Monocytes (%) (Auto) 6.1 3.0-13.0 % Eosinophils (%) (Auto) 1.0 0.0-8.0 % Basophils (%) (Auto) 0.2 0.0-5.0 % Neutrophils # (Auto) 8.9 H 1.8-7.7 K/uL Lymphocytes # (Auto) 1.7 1.0-4.8 K/uL Monocytes # (Auto) 0.7 0.1-1.0 K/uL Eosinophils # (Auto) 0.11 0.00-0.70 K/uL Basophils # (Auto) 0.02 0.00-0.20 K/uL Absolute Immature Granulocyte (auto 0.04 0-1 K/uL B-Type Natriuretic Peptide 913 H 0-100 pg/mL Urine Random Creatinine 40.04 30-135 mg/dL Urine Random Total Protein 216.9 H 0-11.9 mg/dL Arterial Blood pH 7.368 7.350-7.450 Arterial Blood Partial Pressure CO2 27 L 32-45 mmHg Arterial Blood Partial Pressure O2 58.9 L 83.0-108.0 mmHg Arterial Blood HCO3 15.4 L 21.0-28.0 mmol/L Arterial Blood Base Excess -8.2 L -2.0-3.0 mmol/L Current Medications Medications (Trade) Dose Ordered Sig/Hilda Route PRN Reason Start Time Stop Time Status Last Admin Dose Admin Acetaminophen (TYLenol 325MG TAB) 650 mg Q4H PRN PO MILD PAIN (1-3) 01/15/25 14:30 02/14/25 14:29 01/16/25 05:48 650 MG Acetaminophen (TYLenol 325MG TAB) 650 mg Q6H PRN PO MILD PAIN (1-3) 01/15/25 14:30 01/15/25 14:26 DC Acetaminophen (TYLenol 325MG TAB) 650 mg Q6H PRN PO TEMPERATURE GREATER THAN 101.5 01/15/25 14:30 02/14/25 14:29 Al Hydroxide/Mg Hydroxide (MAALox PLUS 30ML) 30 ml Q6H PRN PO INDIGESTION 01/15/25 14:30 02/14/25 14:29 Amiodarone HCl (pacERONE 200MG) 200 mg DAILY PO 01/17/25 09:00 02/16/25 08:59 01/18/25 08:41 200 MG Amlodipine Besylate (NorvASC 5MG TAB) 10 mg DAILY PO 01/17/25 09:00 02/16/25 08:59 01/18/25 08:41 10 MG Atorvastatin Calcium (LIPItor 40MG) 80 mg HS PO 01/16/25 21:00 02/15/25 20:59 01/17/25 20:46 80 MG Clindamycin HCl/ Dextrose 50 ml @ 100 mls/hr Q8H IV 01/15/25 14:30 01/15/25 22:29 DC 01/15/25 15:03 100 MLS/HR Clindamycin HCl/ Dextrose 50 ml @ 100 mls/hr Q8H IV 01/16/25 02:00 01/26/25 01:59 01/18/25 10:13 100 MLS/HR Clindamycin HCl/ Dextrose 50 ml @ 100 mls/hr Q8H STAT IV 01/15/25 12:36 01/15/25 13:05 DC 01/15/25 12:53 100 MLS/HR Clopidogrel Bisulfate (plaVIX 75MG) 75 mg DAILY PO 01/17/25 09:00 02/16/25 08:59 01/18/25 08:40 75 MG Dextrose (D50w) 50 ml AD PRN IV HYPOGLYCEMIA PROTOCOL 01/15/25 14:30 02/14/25 14:29 Diphenhydramine HCl (BENAdryl INJ) 25 mg Q6H PRN IV SEVERE ITCHING/RASH 01/15/25 14:30 02/14/25 14:29 Empaglifozin (Jardiance 10mg) 10 mg DAILY PO 01/17/25 09:00 02/16/25 08:59 01/18/25 08:41 10 MG Ergocalciferol (Drisdol) 50,000 unit QWEEK PO 01/23/25 09:00 02/22/25 08:59 Famotidine (Pepcid 20mg Vial) 20 mg BID PRN IV NAUSEA/VOMITING 01/15/25 14:30 01/15/25 14:26 DC Famotidine (Pepcid 20mg Vial) 20 mg Q48H IV 01/15/25 21:00 02/14/25 20:59 01/17/25 20:46 20 MG Glucagon (Glucagon 1mg Kit) 1 mg AD PRN IM HYPOGLYCEMIA PROTOCOL 01/15/25 14:30 02/14/25 14:29 Guaifenesin/ Dextromethorphan (RobiTUSSin DM 200/20MG 10ML) 10 ml Q4H PRN PO COUGH 01/15/25 14:30 02/14/25 14:29 Heparin Sodium (Porcine) (HEParin 5,000 UNIT VIAL) 5,000 unit BID SQ 01/15/25 21:00 02/14/25 20:59 01/18/25 08:37 5,000 UNIT Home Med (Home Medication) (Finerenone (Kerendia) 10 MG) DAILY PO 01/17/25 09:00 02/16/25 08:59 01/17/25 09:14 1 EACH Hydralazine HCl (APRESOLine 20MG INJ) 10 mg Q6H PRN IV For:SBP above 160;DBP above 90 01/15/25 14:30 02/14/25 14:29 Ibuprofen (moTRIN) 600 mg Q8H PRN PO MODERATE PAIN (4-6) 01/15/25 14:30 02/14/25 14:29 01/18/25 03:52 600 MG Insulin Human Regular (humuLIN R 100 UNIT/ML 3ML) INSULIN SLIDING SCAL... ACHS SQ 01/15/25 16:30 02/14/25 16:29 01/17/25 20:50 4 UNIT Isosorbide Mononitrate (Imdur 30mg Sr) 30 mg DAILY PO 01/17/25 09:00 02/16/25 08:59 01/18/25 08:41 30 MG Ketorolac Tromethamine (toRADol) 15 mg Q8H PRN IV MODERATE PAIN (4-6) 01/15/25 14:30 01/15/25 14:29 DC Lactulose (Constulose 20gm/ 30ml Udcup) 20 gm BID PRN PO CONSTIPATION 01/15/25 14:30 02/14/25 14:29 Losartan Potassium (CozAAR 50 mg TAB) 50 mg DAILY PO 01/17/25 09:00 02/16/25 08:59 01/18/25 08:40 50 MG Magnesium Sulfate 50 ml @ 0 mls/hr PROTOCOL PRN IV other 01/15/25 14:30 02/14/25 14:29 Metoprolol Succinate (TopROL XL) 25 mg DAILY PO 01/17/25 09:00 02/16/25 08:59 01/18/25 08:40 25 MG Morphine Sulfate (morPHINE 4MG SYG) 1 mg Q4H PRN IVP SEVERE PAIN (7-10) 01/15/25 15:00 01/22/25 14:59 Nitroglycerin (Nitrostat) 0.4 mg AD SL 01/16/25 11:30 01/16/25 11:16 DC Nitroglycerin (Nitrostat) 0.4 mg PROTOCOL PRN SL CHEST PAIN 01/15/25 14:30 02/14/25 14:29 Ondansetron HCl (zoFRAN 4MG INJ) 4 mg Q6H PRN IV NAUSEA/VOMITING 01/15/25 14:30 02/14/25 14:29 Pharmacy Profile Note (Pharmacy Communication) 1 each ONCE MISC 01/15/25 13:30 01/15/25 19:00 DC 01/15/25 13:24 1 EACH Pharmacy Profile Note (Pharmacy Communication) 1 each ONCE MISC 01/16/25 18:00 01/17/25 09:50 DC Potassium Chloride 100 ml @ 100 mls/hr AD PRN IV POTASSIUM PROTOCOL 01/15/25 14:30 02/14/25 14:29 Potassium Chloride (K-Dur 10meq Sr Tab) 10 meq AD PRN PO POTASSIUM PROTOCOL 01/16/25 10:30 02/14/25 14:29 01/18/25 07:13 10 MEQ Potassium Chloride (K-Dur/Klor-Con 20meq) 10 meq AD PRN PO POTASSIUM PROTOCOL 01/15/25 14:30 01/16/25 10:22 DC Potassium Chloride (KCl 10% Elixir 20meq/15ml) 10 meq AD PRN PO POTASSIUM PROTOCOL 01/15/25 14:30 02/14/25 14:29 Sodium Bicarbonate (Sodium Bicarbonate) 650 mg QID PO 01/17/25 13:00 02/16/25 12:59 01/18/25 08:41 650 MG Sodium Chloride 1,000 ml @ 100 mls/hr Q10H IV 01/15/25 14:30 02/14/25 14:29 01/17/25 13:06 100 MLS/HR Vitamin B Complex/ Vit C/Folic Acid (Nephrovite Tablet) 1 cap DAILY PO 01/16/25 09:00 02/15/25 08:59 01/18/25 08:41 1 CAP Zolpidem Tartrate (AmbIEN) 5 mg HS PRN PO INSOMNIA 01/15/25 14:30 02/14/25 14:29 DIAGNOSTICS / RADIOLOGY: [ ] ASSESSMENT: Acute kidney injury POA Periodontal inflammatory patient's/infection POA History of kidney cancer s/p left nephrectomy Uncontrolled diabetes mellitus type 2 with hypoglycemia Hyperlipidemia, POA Hypertension POA 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 As per previous day conversation between Dr. Ovalles and hotshot superintendent. Patient had a workup done one year ago in [place] including MRI of the heart. Patient was not sure if she had a tumor or a clot that she normally follows up with a Dr. Dinesh maki as outpatient. She was taking Eliquis 5 mg p.o. b.i.d. and her last dose was about a week ago and she did not get any refills. Apparently per her PCP she did not needed Eliquis anymore. Patient is currently on Plavix for the stents to the coronary arteries. All the findings were discussed with Dr. 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 Patient we will continue to be on Plavix, no need for Eliquis. Follow-up with primary hotshot superintendent outpatient within 1 to 2 weeks. At this moment we are pending final urine culture. We will change clindamycin to Rocephin 2 g daily. Anticipated discharge within 24 hours. A.m. labs. Admit to medical-surgical floor Start clindamycin for a dental infection Normal saline at 100 mL/hour PRN medication Initiate hyper or hypokalemia protocol Initiate hyper hypoglycemia protocol Hypomagnesemia protocol Urine culture Urinalysis negative Blood culture pending Consistent carbs 60 to 75 g PT eval request Case management for evaluation] ATTESTATION BY PHYSICIAN I have seen and examined the patient. I reviewed the documentation, medical decision making, and treatment plan as noted by the mid-level provider above. I agree with the findings and plan of care. PARISA OVALLES MD, KATARZYNA B STEEL ERECTOR Jan 18, 2025 12:29
--- NOTE | 2025-01-18 15:10 | NUR ---
VENOUS BLOOD GAS PENDING Called laboratory inquiring about venous blood gas ordered this morning. Order not seen by lab department. New order placed for collection. Respiratory Therapist on unit for blood sample once collected.
[2025-01-18 15:19] LABS: ABG OXYGEN SATURATION 78.0 % (94.0-98.0); BASE EXCESS,VENOUS BLOOD GAS -3.9 (-2.0-3.0); DEVICE COMMENT VENOUS; HCO3,VENOUS BLOOD GAS 20.8 (22.0-29.0); PCO2,VENOUS BLOOD GAS 37 (38-54); PH,VENOUS BLOOD GAS 7.365 (7.320-7.430); PO2,VENOUS BLOOD GAS 43.4 mmHg (23.0-48.0); TEMPERATURE, CELSIUS BG 37.0 CELSIUS (35.5-37.0); VENT MODE, BG 3L NC (ROOM AIR)
--- NOTE | 2025-01-18 15:30 | NUR ---
CHANGE IN CONDITION Patient reported feeling short of breath. O2 via nasal canula at 91%, 2L. Head of bed elevated. Pulmonary assessment with noted crackles to bilateral bases. Physician notified. New order for one time dose lasix now, scheduled lasix BID
[2025-01-19] VITALS (8 sets, daily range): BP systolic 150–155; BP diastolic 79–91; PULSE 72–106; RESP 18–22; TEMP 98.2–98.7; O2SAT 85–94
[2025-01-19 04:14] LABS: IMMATURE GRANULOCYTE ABSOLUTE 0.05 K/uL (0-1); NUCLEATED RED BLOOD CELLS 0.0 % (0.0-0.19); PLATELET COUNT (AUTO) 143 K/uL (130-400); RED BLOOD CELL COUNT(AUTO) 3.08 MIL/uL (4.00-5.50); RED CELL DISTRIBUTION WIDTH 14.0 % (11.0-15.5); WHITE BLOOD COUNT (AUTO) 8.9 K/uL (4.8-10.8)
[2025-01-19 04:41] LABS: ASPARTATE AMINOTRANSFERASE 16.0 U/L (10-37); CREATININE 2.2 mg/dL (0.5-1.0); GLOMERULAR FILTR. RATE CALC 25.0 mL/min (>90); GLUCOSE,RANDOM 89.0 mg/dL (70-105); SODIUM SERUM 141.0 mmol/L (136-145); TOTAL PROTEIN, SERUM 7.6 g/dL (6.0-8.3); UREA NITROGEN, BLOOD 33.0 mg/dL (7-18)
[2025-01-19] MEDS: MAGNESIUM 2GM PREMIX 50ML 50 ML IV PRN (08:29)
[2025-01-19] MEDS: PoTASSium chl 10% ELIXIR 20MEQ 20 MEQ/15 ML UDCUP PO PRN (08:30)
[2025-01-19] MEDS ORDERED: SODI650T PO (08:59)
[2025-01-19] MEDS ORDERED: METF-444 PO (09:00)
[2025-01-19] MEDS ORDERED: CEPH500B PO (09:01)
--- NOTE | 2025-01-19 09:09 | DS ---
Discharge Summary Hospital Course Summary: DATE OF ADMISSION:[01/15/2025] DATE OF DISCHARGE:[01/19/2025] DISPOSITION:[Home] CONDITION:[Medically stable] CONSULTANTS:[Wildlife Conservationist, automotive specialty technician] FOLLOW UP APPOINTMENTS:[PCP 2 to 3 days. Wildlife Conservationist within one week. Crop Consultant 1 to 2 weeks.] PROCEDURES:[None] IMAGING: report attached to summary MICROBIOLOGY: report attached to summary ACTIVITY:[Independent] HOME MEDICATIONS: see [facility] NEW MEDICATIONS:[Keflex 500 mg b.i.d. x5 days. Metformin 500 mg p.o. b.i.d.. Sodium bicarb 650 mg p.o. daily] EMERGENCY INSTRUCTIONS: The patient was instructed to present to the nearest Emergency departmentr or call 911 once their symptoms will return or worsen Stock Checkerer(s): Patient is 59 years old female with a past medical history of kidney cancer, s/p left nephrectomy, diabetes, hypertension, hyperlipidemia, who came to emergency department with a complaint of right facial pain. Patient stated that recently she was seen by a dentist due to infected molar the pain is unbearable so patient decided to come to emergency department for further evaluation/recommendations. During examination patient was found to be in acute kidney disease. When asked if patient ever follow up with strike operations officer patient stated that she did know that she had some kidney problems which she never follow up with anyone outpatient. Wildlife Conservationist was consulted Throughout the hospitalization patient underwent chest x-ray and showed moderate cardiomegaly. CT maxilla facial which shows sinusitis, ultrasound renal was limited due to left kidney not seen. Otherwise normal. 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 Crop Consultant was consulted. After evaluation of the automotive specialty technician and as per conversation between Dr. Ovalles and , patient had a workup done one year ago in [place] including MRI of the heart. Patient was not sure if she had a tumor or a clot that she normally follows up with a Dr. Dinesh maki as outpatient. She was taking Eliquis 5 mg p.o. b.i.d. and her last dose was about a week ago and she did not get any refills. Apparently per her PCP she did not needed Eliquis anymore. As per Dr. 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 Patient we will continue to be on Plavix, no need for Eliquis. Follow-up with primary automotive specialty technician outpatient within 1 to 2 weeks. On admission patient's urinalysis was positive for leukocytosis. Final urine culture negative. Due to periodontal disease patient will be discharged on Keflex 500 mg b.i.d. x5 days. Throughout the hospitalization patient was also complaining of shortness of breaths and was placed on oxygen two to 4 L nasal cannula. Today patient underwent 6 minute walk and did not pass. Patient will need O2 once discharged home. Patient was also cleared by strike operations officer follow up outpatient within one week. Patient was also advised to follow up with PCP in 2 to 3 days. Procedure(s): REVIEW OF SYSTEMS CONSTITUTIONAL: Denies fevers, chills, or night sweats. No unintentional weight loss reported. NEUROLOGICAL: Denies headache, amaurosis fugax, motor weakness, sensory deficit, vertigo/spinning sensation, gait abnormalities, or tremors. ENT: No hearing loss, otalgia, otorrhea, rhinitis, rhinorrhea, hoarseness, or sore throat. Complains of periodontal pain improved, minimal CARDIOVASCULAR: Denies any exertional angina, dyspnea on exertion, orthopnea, paroxysmal nocturnal dyspnea, palpitations, life-threatening arrhythmias, claudication. PULMONARY: Denies any shortness of breath, cough, phlegm/sputum, hemoptysis, pleuritic chest pain. SLEEP: Denies morning headaches, daytime somnolence or napping. Denies difficulty falling asleep, staying asleep, waking from sleep. Denies knowledge of snoring. GASTROINTESTINAL: Denies any type of dysphagia to either liquids or solids. Denies nausea, vomiting, pyrosis, early satiety, abdominal pain, diarrhea, constipation, or changes in stool consistency or caliber. Denies coffee-ground emesis, hematemesis, hematochezia, or melanotic stools. GENITOURINARY: Denies frequency, urgency, nocturia, hematuria or incontinence (Storage/Irritative symptoms.) Low urinary stream, straining to void, urinary intermittency or hesitancy, splitting of the voiding stream, terminal dribbling. ENDOCRINOLOGIC: Denies polyuria, polydipsia, polyphagia or heat/cold intolerances. HEMATOLOGIC: Denies thrombophilia/previous clots, or coagulopathy/bleeding disorders. ONCOLOGIC: Denies personal history of malignancy. DERMATOLOGIC: Denies rashes or pruritus. PSYCHIATRIC: Denies any suicidal or homicidal ideation. Denies hallucinations. PHYSICAL EXAM GENERAL APPEARANCE: The patient is awake, alert, and oriented, in no acute cardiopulmonary distress. NEUROLOGICAL: Cranial nerves II-XII grossly intact. Motor is 5/5 in bilateral upper and lower extremities proximal to distal. No sensory deficits. HEENT: Face is symmetric. Pupils are equal and reactive. Extraocular movements are intact. NECK: Supple. No JVD. No thyromegaly. No submental, submandibular, pre-/postauricular, occipital or supraclavicular lymphadenopathy. CHEST: Normal chest expansion. No Telemetry. LUNGS: Absence of any rales, rhonchi or any wheezing. CARDIOVASCULAR: Regular. S1 and S2 normal. No appreciable rubs, murmurs or gallops. ABDOMEN: Soft, nontender, and nondistended. There is no rebound, voluntary guarding, or rigidity. : Deferred. No Davis. EXTREMITIES: Non-edematous and not cyanotic. No clubbing. Good capillary refill. SKIN: No skin breakdown. 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, POA Urinary tract infection, POA Acute metabolic acidosis Home Medications: Active Scripts Cephalexin Monohydrate (Keflex) 500 Mg Cap, 500 CAP PO BID for 5 Days, #20 CAP 0 Refills Prov:LOUIS NEFF ADMINISTRATION SPECIALIST 01/19/25 Metformin HCl (Metformin HCl) 500 Mg Tablet, 500 MG PO BID, #60 TAB Prov:LOUIS NEFF ADMINISTRATION SPECIALIST 01/19/25 Sodium Bicarbonate (Sodium Bicarbonate) 650 Mg Tablet, 650 MG PO DAILY, #7 TAB Prov:LOUIS NEFF ADMINISTRATION SPECIALIST 01/19/25 Reported Medications Nitroglycerin (Nitroglycerin) 0.4 Mg Tab.subl, 1 TAB SL AD for chest pain, #25 TAB 0 Refills 1st sign of attack; may repeat every 5 mins; if pain persists after 3 in 15 min, medical attention is recommended 01/15/25 Metoprolol Succinate (Metoprolol Succinate) 25 Mg Tab.er.24h, 25 MG PO DAILY, TAB 01/15/25 Ergocalciferol (Vitamin D2) (Vitamin D2) 1,250 Mcg (64908 Unit) Capsule, 1 CAP PO QWEEK for 28 Days, #4 CAP 0 Refills 01/15/25 Isosorbide Mononitrate (Isosorbide Mononitrate) 10 Mg Tablet, 30 MG PO DAILY, TAB 01/15/25 Furosemide (Furosemide) 40 Mg Tablet, 40 MG PO BID, TAB 01/15/25 Amlodipine Besylate (Amlodipine Besylate) 10 Mg Tablet, 10 MG PO DAILY for 30 Days, #30 TAB 0 Refills 01/15/25 Losartan Potassium (Losartan Potassium) 50 Mg Tablet, 1 TAB PO DAILY for 30 Days, #30 TAB 0 Refills 01/15/25 Finerenone (Kerendia) 10 Mg Tablet, 10 MG PO DAILY, TAB 01/15/25 Empagliflozin (Jardiance) 10 Mg Tablet, 1 TAB PO DAILY for 30 Days, #30 TAB 0 Refills 01/15/25 Clopidogrel Bisulfate (Clopidogrel) 75 Mg Tablet, 75 MG PO DAILY, TAB 01/15/25 Rosuvastatin Calcium (Rosuvastatin Calcium) 40 Mg Tablet, 1 TAB PO DAILY for high cholesterol for 30 Days, #30 TAB 0 Refills 01/15/25 Amiodarone HCl (Amiodarone HCl) 200 Mg Tablet, 1 TAB PO DAILY for 30 Days, #30 TAB 0 Refills 01/15/25 Time spent arranging discharge: 31-60 minutes ATTESTATION BY PHYSICIAN I have seen and examined the patient. I reviewed the documentation, medical dec ision making, and treatment plan as noted by the mid-level provider above. I agree with the findings and plan of care. Sarika Pena MD, KATARZYNA B APRN Jan 19, 2025 09:09
--- NOTE | 2025-01-19 12:30 | NUR ---
6MIN WALK RESPIRATORY PERFORMED 6 MIN WALK ORDERED BY PRIMARY. PATIENT FAILED AND NEEDING O2 FOR HOME. CASE MANAGEMENT NOTIFIED AND STARTED PROCESS FOR HOME 02. PATIENT AWARE AND VOICED UNDERSTANDING. PENDING APPROVAL.
--- NOTE | 2025-01-19 14:57 | PN ---
NEPHROLOGY PROGRESS NOTE Date/Time Patient Seen: Jan 19, 2025 SUBJECTIVE: This is 59 years old female with a past medical history of kidney cancer, s/p left nephrectomy, diabetes, hypertension, hyperlipidemia, who came to emergency department with a complaint of right facial pain. CT maxilla patient was show sinusitis. Pending final urine cultures She continues on antibiotics She was noted with elevated BUN/creatinine We are consulted for renal failure Renal function is improving Electrolytes are stable. Renal ultrasound was noted. Nurse reports patient failed 6 minute walk, pending home oxygen set up She was seen in the medical floor, in no acute distress No family at the bedside Prognosis remains guarded REVIEW OF SYSTEMS: GENERAL: Negative for any nausea, vomiting, fevers, chills, or weight loss. NEUROLOGIC: Negative for any blurry vision, blind spots, double vision, facial asymmetry, dysphagia, dysarthria, hemiparesis, hemisensory deficits, vertigo, ataxia. HEENT: Negative for any head trauma, neck trauma, neck stiffness, photophobia, phonophobia, sinusitis, rhinitis. CARDIAC: Negative for any chest pain, dyspnea on exertion, paroxysmal nocturnal dyspnea, peripheral edema. PULMONARY: Negative for any shortness of breath, wheezing, COPD, or TB exposure. GASTROINTESTINAL: Negative for any abdominal pain, nausea, vomiting, bright red blood per rectum, melena. GENITOURINARY: Negative for any dysuria, hematuria, incontinence. INTEGUMENTARY: Negative for any rashes, cuts, insect bites. RHEUMATOLOGIC: Negative for any joint pains, photosensitive rashes, history of vasculitis or kidney problems. HEMATOLOGIC: Negative for any abnormal bruising, frequent infections or bleeding. Vital Signs (last 8hr) Date Time Temp Pulse Resp B/P (MAP) Pulse Ox O2 Delivery O2 Flow Rate FiO2 01/19/25 11:54 98.4 87 20 150/86 93 Nasal Cannula 3.0 28 01/19/25 10:45 91 Nasal Cannula* 3 32 01/19/25 10:40 84 18 21 106 22 21 101 20 28 01/19/25 08:00 98.2 78 20 155/91 91 Nasal Cannula 3.0 28 PHYSICAL EXAM: GENERAL: Alert and oriented x 3. No acute distress. Well-nourished. EYES: EOMI. Anicteric. HENT: Moist mucous membranes. No scleral icterus. No cervical lymphadenopathy. LUNGS: Clear to auscultation bilaterally. No accessory muscle use. CARDIOVASCULAR: Regular rate and rhythm. No murmur. No JVD. ABDOMEN: Soft, non-tender and non-distended. No palpable masses. EXTREMITIES: No edema. Non-tender. SKIN: No rashes or lesions. Warm. NEUROLOGIC: No focal neurological deficits. CN II-XII grossly intact, but not individually tested. PSYCHIATRIC: Cooperative. Appropriate mood and affect. Current Medications Medications (Trade) Dose Ordered Sig/Hilda Route PRN Reason Start Time Stop Time Status Last Admin Dose Admin Acetaminophen (TYLenol 325MG TAB) 650 mg Q4H PRN PO MILD PAIN (1-3) 01/15/25 14:30 02/14/25 14:29 01/16/25 05:48 650 MG Acetaminophen (TYLenol 325MG TAB) 650 mg Q6H PRN PO MILD PAIN (1-3) 01/15/25 14:30 01/15/25 14:26 DC Acetaminophen (TYLenol 325MG TAB) 650 mg Q6H PRN PO TEMPERATURE GREATER THAN 101.5 01/15/25 14:30 02/14/25 14:29 Al Hydroxide/Mg Hydroxide (MAALox PLUS 30ML) 30 ml Q6H PRN PO INDIGESTION 01/15/25 14:30 02/14/25 14:29 Amiodarone HCl (pacERONE 200MG) 200 mg DAILY PO 01/17/25 09:00 02/16/25 08:59 Amlodipine Besylate (NorvASC 5MG TAB) 10 mg DAILY PO 01/17/25 09:00 02/16/25 08:59 Atorvastatin Calcium (LIPItor 40MG) 80 mg HS PO 01/16/25 21:00 02/15/25 20:59 Clindamycin HCl/ Dextrose 50 ml @ 100 mls/hr Q8H IV 01/15/25 14:30 01/15/25 22:29 DC 01/15/25 15:03 100 MLS/HR Clindamycin HCl/ Dextrose 50 ml @ 100 mls/hr Q8H IV 01/16/25 02:00 01/26/25 01:59 01/16/25 08:18 100 MLS/HR Clindamycin HCl/ Dextrose 50 ml @ 100 mls/hr Q8H STAT IV 01/15/25 12:36 01/15/25 13:05 DC 01/15/25 12:53 100 MLS/HR Clopidogrel Bisulfate (plaVIX 75MG) 75 mg DAILY PO 01/17/25 09:00 02/16/25 08:59 Dextrose (D50w) 50 ml AD PRN IV HYPOGLYCEMIA PROTOCOL 01/15/25 14:30 02/14/25 14:29 Diphenhydramine HCl (BENAdryl INJ) 25 mg Q6H PRN IV SEVERE ITCHING/RASH 01/15/25 14:30 02/14/25 14:29 Empaglifozin (Jardiance 10mg) 10 mg DAILY PO 01/17/25 09:00 02/16/25 08:59 Ergocalciferol (Drisdol) 50,000 unit QWEEK PO 01/23/25 09:00 02/22/25 08:59 Famotidine (Pepcid 20mg Vial) 20 mg BID PRN IV NAUSEA/VOMITING 01/15/25 14:30 01/15/25 14:26 DC Famotidine (Pepcid 20mg Vial) 20 mg Q48H IV 01/15/25 21:00 02/14/25 20:59 01/15/25 20:32 20 MG Glucagon (Glucagon 1mg Kit) 1 mg AD PRN IM HYPOGLYCEMIA PROTOCOL 01/15/25 14:30 02/14/25 14:29 Guaifenesin/ Dextromethorphan (RobiTUSSin DM 200/20MG 10ML) 10 ml Q4H PRN PO COUGH 01/15/25 14:30 02/14/25 14:29 Heparin Sodium (Porcine) (HEParin 5,000 UNIT VIAL) 5,000 unit BID SQ 01/15/25 21:00 02/14/25 20:59 01/16/25 08:24 5,000 UNIT Home Med (Home Medication) (Finerenone (Kerendia) 10 MG) DAILY PO 01/17/25 09:00 02/16/25 08:59 Hydralazine HCl (APRESOLine 20MG INJ) 10 mg Q6H PRN IV For:SBP above 160;DBP above 90 01/15/25 14:30 02/14/25 14:29 Ibuprofen (moTRIN) 600 mg Q8H PRN PO MODERATE PAIN (4-6) 01/15/25 14:30 02/14/25 14:29 Insulin Human Regular (humuLIN R 100 UNIT/ML 3ML) INSULIN SLIDING SCAL... ACHS SQ 01/15/25 16:30 02/14/25 16:29 01/16/25 11:34 10 UNIT Isosorbide Mononitrate (Imdur 30mg Sr) 30 mg DAILY PO 01/17/25 09:00 02/16/25 08:59 Ketorolac Tromethamine (toRADol) 15 mg Q8H PRN IV MODERATE PAIN (4-6) 01/15/25 14:30 01/15/25 14:29 DC Lactulose (Constulose 20gm/ 30ml Udcup) 20 gm BID PRN PO CONSTIPATION 01/15/25 14:30 02/14/25 14:29 Losartan Potassium (CozAAR 50 mg TAB) 50 mg DAILY PO 01/17/25 09:00 02/16/25 08:59 Magnesium Sulfate 50 ml @ 0 mls/hr PROTOCOL PRN IV other 01/15/25 14:30 02/14/25 14:29 Metoprolol Succinate (TopROL XL) 25 mg DAILY PO 01/17/25 09:00 02/16/25 08:59 Morphine Sulfate (morPHINE 4MG SYG) 1 mg Q4H PRN IVP SEVERE PAIN (7-10) 01/15/25 15:00 01/22/25 14:59 Nitroglycerin (Nitrostat) 0.4 mg AD SL 01/16/25 11:30 01/16/25 11:16 DC Nitroglycerin (Nitrostat) 0.4 mg PROTOCOL PRN SL CHEST PAIN 01/15/25 14:30 02/14/25 14:29 Ondansetron HCl (zoFRAN 4MG INJ) 4 mg Q6H PRN IV NAUSEA/VOMITING 01/15/25 14:30 02/14/25 14:29 Pharmacy Profile Note (Pharmacy Communication) 1 each ONCE MISC 01/15/25 13:30 01/15/25 19:00 DC 01/15/25 13:24 1 EACH Potassium Chloride 100 ml @ 100 mls/hr AD PRN IV POTASSIUM PROTOCOL 01/15/25 14:30 02/14/25 14:29 Potassium Chloride (K-Dur 10meq Sr Tab) 10 meq AD PRN PO POTASSIUM PROTOCOL 01/16/25 10:30 02/14/25 14:29 Potassium Chloride (K-Dur/Klor-Con 20meq) 10 meq AD PRN PO POTASSIUM PROTOCOL 01/15/25 14:30 01/16/25 10:22 DC Potassium Chloride (KCl 10% Elixir 20meq/15ml) 10 meq AD PRN PO POTASSIUM PROTOCOL 01/15/25 14:30 02/14/25 14:29 Sodium Chloride 1,000 ml @ 100 mls/hr Q10H IV 01/15/25 14:30 02/14/25 14:29 01/16/25 11:51 100 MLS/HR Vitamin B Complex/ Vit C/Folic Acid (Nephrovite Tablet) 1 cap DAILY PO 01/16/25 09:00 02/15/25 08:59 01/16/25 08:18 1 CAP Zolpidem Tartrate (AmbIEN) 5 mg HS PRN PO INSOMNIA 01/15/25 14:30 02/14/25 14:29 LABORATORY: [ ] Hematology Labs: Test 01/19/25 03:39 Range/Units White Blood Count 8.9 4.8-10.8 K/uL Red Blood Count 3.08 L 4.00-5.50 MIL/uL Hemoglobin 10.0 L 12.0-16.0 g/dL Hematocrit 29.8 L 36-48 % Mean Corpuscular Volume 96.8 79-99 fL Mean Corpuscular Hemoglobin 32.5 27.0-33.0 pg Mean Corpuscular Hemoglobin Concent 33.6 32.0-36.0 g/dL Red Cell Distribution Width 14.0 11.0-15.5 % Platelet Count 143 130-400 K/uL Mean Platelet Volume 10.3 7.5-10.5 fL Immature Granulocyte % (Auto) 0.6 0-1 % Neutrophils (%) (Auto) 75.7 40.0-77.0 % Lymphocytes (%) (Auto) 16.3 L 21.0-51.0 % Monocytes (%) (Auto) 6.5 3.0-13.0 % Eosinophils (%) (Auto) 0.7 0.0-8.0 % Basophils (%) (Auto) 0.2 0.0-5.0 % Neutrophils # (Auto) 6.7 1.8-7.7 K/uL Lymphocytes # (Auto) 1.5 1.0-4.8 K/uL Monocytes # (Auto) 0.6 0.1-1.0 K/uL Eosinophils # (Auto) 0.06 0.00-0.70 K/uL Basophils # (Auto) 0.02 0.00-0.20 K/uL Absolute Immature Granulocyte (auto 0.05 0-1 K/uL Nucleated Red Blood Cells 0.0 0.0-0.19 % Chemistry Labs: Test 01/19/25 11:28 01/19/25 03:39 01/17/25 16:14 Range/Units Whole Blood Glucose 157 #H 70-110 MG/DL Sodium Level 141 136-145 mmol/L Potassium Level 3.4 L 3.5-5.1 mmol/L Chloride Level 105 101-111 mmol/L Carbon Dioxide Level 22 21-32 mmol/L Blood Urea Nitrogen 33 H 7-18 mg/dL Creatinine 2.2 H 0.5-1.0 mg/dL Glomerular Filtration Rate Calc 25 >90 mL/min Random Glucose 89 70-105 mg/dL Total Calcium 8.3 L 8.5-10.1 mg/dL Magnesium Level 1.70 L 1.80-2.40 mg/dL Total Bilirubin 0.9 0.2-1.0 mg/dL Aspartate Amino Transf (AST/SGOT) 16 10-37 U/L Alanine Aminotransferase (ALT/SGPT) 17 12-78 U/L Alkaline Phosphatase 160 H 50-136 U/L Total Protein 7.6 6.0-8.3 g/dL Albumin 2.9 L 3.5-5.0 g/dL Bedside Glucose Comment Notified Nurse DIAGNOSTICS / RADIOLOGY: [address] [id number] IMAGING REPORT Signed PATIENT: INGRID BORREGO MR#: [id number] : 1965 SEX: F AGE: 59 LOCATION: 1MS ORDER 14 STATUS: ADM IN REPORT#: [id number] SERVICE 111 REASON: chf ORDERING PHYSICIAN: LOUIS NEFF APRN PROCEDURE: ECHO CMP - ECHO 2-D COMPLETE APPROVED REPORT EXAM: Two-dimensional and M-mode echocardiogram with Doppler and color Doppler. INDICATION ICD: Heart Failure 2D Dimensions RVDd 4.0 cm LVEF(%) 68.2 (>50%) LVED Vol(simp.) 79.7 mL IVSd 1.1 (0.7-1.1cm) FS(%) 38 % LVES Vol(simp.) 44.5 mL LVDd 4.3 (3.8-5.6cm) LA (2D) 6.1 (1.6-4.0cm) LVEF(%, simp.) 44 % PWd 1.1 (0.7-1.1cm) Ao Root(2D) 2.7 (2.0-3.7cm) LA ESV INDEX (BP) 62.75 mL/m2 LVDs 2.7 (2.5-4.0cm) LVOT diam 2.0 (1.8-2.4cm) IVC diam 1.6 cm Deformation Strain Apical 4 -11.1 % Apical 2 -13.7 % Apical 3 -11.4 % Global Strain -12.1 % M-Mode Dimensions EPSS 0.9 cm LA (MM) 4.7 (1.6-4.0cm) Ao Root(MM) 2.5 (2.0-3.7cm) Aortic Valve AoV Vmax 1.5 m/s Ao Peak GR 8.9 mmHg LVOT Vmax 1.0 m/s AoV VTI 0.3 m Ao Mean GR 5.0 mmHg LVOT VTI 0.23 m BEN (VMAX) 1.99 cm2 BEN (VTI) 2.0 cm2 Mitral Valve MV E Vmax 144.2 cm/s DECEL Time 200 ms MV Peak GR 11 mmHg MV A Vmax 88.7 cm/s P 1/2 T 65 ms MV Mean GR 5 mmHg E/A ratio 1.6 MVA (PHT) 3.4 cm2 MVA (VTI) 1.85 cm2 TDI E/E' Medial 21.3 E/E' Lateral 20.3 Medial E' Peak V 6.77 cm/s Lateral E' Peak V 7.09 cm/s Pulmonary Valve PV Vmax 1.1 m/s PV VTI 0.26 m PV Mean GR 2.6 mmHg PV Peak GR 4.6 mmHg Left Ventricle The left ventricle is normal size. There is normal left ventricular wall thickness. LVEF is 50-55%. 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 Right Ventricle The right ventricle is normal size. The right ventricular systolic function is normal. Atria The left atrium is severely dilated. The right atrium size is normal. Aortic Valve The aortic valve is normal in structure. No aortic regurgitation is present. There is no aortic valvular stenosis. Mitral Valve The mitral valve is normal in structure. Mitral regurgitation is mild. There is no mitral valve stenosis. Tricuspid Valve The tricuspid valve is normal in structure. There is no tricuspid valve regurgitation noted. Pulmonic Valve The pulmonary valve is normal in structure. There is no pulmonic valvular regurgitation. Great Vessels The aortic root is normal in size. The IVC is normal in size and collapses >50% with inspiration. Pericardium There is no pericardial effusion. 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 DICTATED BY: JESSICA BRADFORD MD DATE: 01/16/25 1331 ELECTRONICALLY SIGNED BY: JESSICA BRADFORD MD DATE: 01/16/25 1527 PATIENT: INGRID BORREGO MR#: [id number] : 1965 SEX: F AGE: 59 LOCATION: EDHIP ORDER 1423 [facility]US: [facility] REPORT#: [id number] SERVICE 1415 REASON: jason ORDERING PHYSICIAN: LOUIS NEFF APRN PROCEDURE: RENAL - US RENAL SONOGRAM US RENAL SONOGRAM Indication: jason Technique: Renal ultrasound was performed by a trade economist and reviewed by a radiologist. Findings: Right Kidney: Measures 11.0 x 7.0 x 7.0 cm. Unremarkable sonographic appearance without focal lesions or hydronephrosis. Left Kidney: Left kidney is obscured and not seen due to overlying bowel gas and large body habitus. Urinary bladder: Unremarkable. The prevoid volume is 140.05 cc. The post void residual is not obtained. The urinary bladder wall thickness is 0.28 cm. Impression: There is limited due to left kidney not seen The remaining study otherwise appears to be normal. DICTATED BY: ERIN DANIEL MD DATE: 01/15/251612 ELECTRONICALLY SIGNED BY: ERIN DANIEL MD DATE: 01/15/251616 PATIENT: INGRID BORREGO MR#: [id number] : 1965 SEX: F AGE: 59 LOCATION: EDHIP ORDER 22 STATUS: ADM IN REPORT#: [id number] SERVICE 141 REASON: peridontal infection ORDERING PHYSICIAN: LOUIS NEFF APRN PROCEDURE: MAXFACI WO - CT MAXILLOFACIAL W/O CONTRAST CT MAXILLOFACIAL W/O CONTRAST CLINICAL HISTORY: peridontal infection COMPARISON: None TECHNIQUE: Thin axial images were obtained through the facial bones/orbits without the use of intravenous contrast. Coronal and sagittal reformatted images were also submitted for interpretation. CONTRAST: mL of Isovue FINDINGS: NASAL REGION: The nasal bones, frontal processes of the maxilla, and lamina papyracea are intact. The ethmoid air cells are clear. The nasal septum is not deviated. and the nasal spine is intact. ORBITS: The orbital awad, floor, roof and rims are intact. The globes are symmetric and intact. There is no dislocation of the lens. Extraocular muscles are symmetric. Retro-ocular soft tissues are clear. ZYGOMA: The zygomatic arch, inferior and lateral orbital rim, and lateral and anterior awad of the maxilla are intact. MAXILLARY REGION: The alveolar, pterygoid and palatine processes are intact. Maxillary sinuses demonstrate there is bilateral mucoperiosteal thickening or prominence of the right as compared to the left. The remaining paranasal sinuses the ethmoid sphenoid and frontal air cells are well aerated.. MANDIBLE: The symphysis, body and ramus are intact. Coronoid process and alveolar ridges are unremarkable in appearance. No dislocation or fracture of the condyles. SOFT TISSUES: There is no soft tissue swelling or subcutaneous emphysema. The included brain is unremarkable. Visualized portions of the cervical spine look unremarkable. IMPRESSION: Bilateral maxillary sinusitis more pronounced on the right as compared to the left with mucous periosteal thickening. DICTATED BY: ERIN DANIEL MD DATE: 01/15/25 152 ELECTRONICALLY SIGNED BY: ERIN DANIEL MD DATE: 01/15/25 153 PATIENT: INGRID BORREGO MR#: [id number] : 1965 SEX: F AGE: 59 LOCATION: EDHIP ORDER 22 STATUS: [facility] REPORT#: [id number] SERVICE 1415 REASON: congestion ORDERING PHYSICIAN: LOUIS NEFF APRN PROCEDURE: CXR1VW - CHEST 1VW CHEST 1VW REASON: congestion COMPARISON: None. FINDINGS: Single view of the chest was obtained. Lungs are clear. There is moderate cardiomegaly.. There is no pulmonary vascular congestion. Mediastinum and bony thorax appear unremarkable. IMPRESSION: 1. Moderate global cardiomegaly. 2. No evidence of airspace consolidation or pulmonary venous congestion DICTATED BY: ERIN DANIEL MD DATE: 01/15/25 151 ELECTRONICALLY SIGNED BY: ERIN DANIEL MD DATE: 01/15/251512 ASSESSMENT: Acute kidney injury Periodontal inflammatory patient's/infection History of kidney cancer s/p left nephrectomy Uncontrolled diabetes mellitus type 2 Hyperlipidemia, Hypertension PLAN: Labs, diagnostic, radiologic exams reviewed and interpreted by myself and supervising physician. We have reviewed external records in detail Case management coordinating home oxygen Require close monitoring of renal function and electrolytes Order CBC, CMP, and electrolytes in am Continue with antibiotics Renal diabetic diet BiPAP as necessary, for respiratory distress Monitor blood pressure adjust medication doses as needed Avoid hypotensive episodes May use Dilaudid 0.5 mg IV every 6 hours as needed for severe pain Monitor blood sugars Strict intake, output, and daily weight should be monitored Please renally adjust medications Avoid nephrotoxic and nonsteroidal drugs Avoid contrast if possible Will continue to monitor renal function, anemia, electrolytes Treatment plan discussed with patient Questions were answered We have discussed with the other team physicians in detail about the care plan We will continue to monitor the patient closely ATTESTATION BY PHYSICIAN I have seen and examined the patient. I reviewed the documentation, medical decision making, and treatment plan as noted by the mid-level provider above. I agree with the findings and plan of care. MEREDITH ALEXANDER MD, [employer] A[employer]LY[employer] Jan 19, 2025 14:57
--- NOTE | 2025-01-19 18:38 | NUR ---
OXYGEN PATIENT REPORTED DME CONTACTED HER FOR O2 TO BE DELIVERED TODAY AT HOME. PER PATIENT IS HOME WAITING FOR ARRIVAL. WILL NOTIFY NURSE UPON ARRIVAL. DISCHARGE ORDERS IN PLACE. WILL CARRY OUT DISCHARGE UPON CONFIRMATION OF ARRIVAL OF OXYGEN.
--- NOTE | 2025-01-19 18:57 | NUR ---
DISCHARGE DISCHARGE ORDERS OBTAINED FOR PATIENT TO BE DISCHARGED HOME ONCE O2 IS DELIVERED. PATIENT VOICED RECEIVING O2 AT HOME AND WILL COME WITH PORTABLE MACHINE TO TRAVEL HOME. DISCHARGE INSTRUCTIONS AND DOCUMENTATION GIVEN TO PATIENT AT BEDSIDE. VOICED UNDERSTANDING. IV DISCONTINUED, CATHETER INTACT, NO S/S OF INFECTION NOTED. PATIENT TOLERATED WELL. BANDS REMOVED. PENDING ARRIVAL OF FOR PORTABLE MACHINE AND TRANSPORTATION.
[2025-01-23] MEDS ORDERED: ERGOCALCIFEROL (VITAMIN D2) 50,000 UNIT CAPSULE PO SCH (09:00)
== END 2025-01-19 19:39 | disposition home or self-care (01) | DRG 469 ==
LOC: EDH 12:05 → EDHIP 12:06 → UNDOADMIN 14:15 → EDHIP 14:15 → 1MS 21:45 → 4AH 01-17 11:14
PROVIDERS: ADMIT Internal Medicine; ATTEND Internal Medicine
DX: N17.9 Acute kidney failure, unspecified (principal); I50.31 Acute diastolic (congestive) heart failure; E87.21 Acute metabolic acidosis; E11.649 Type 2 diabetes mellitus with hypoglycemia without coma; E87.1 Hypo-osmolality and hyponatremia; D64.9 Anemia, unspecified; E11.21 Type 2 diabetes mellitus with diabetic nephropathy; E66.9 Obesity, unspecified; I11.0 Hypertensive heart disease with heart failure; K04.7 Periapical abscess without sinus; N39.0 Urinary tract infection, site not specified; I10 Essential (primary) hypertension; E78.5 Hyperlipidemia, unspecified; E78.00 Pure hypercholesterolemia, unspecified; J32.0 Chronic maxillary sinusitis; R09.02 Hypoxemia; Z79.01 Long term (current) use of anticoagulants; Z90.5 Acquired absence of kidney; Z85.528 Personal history of other malignant neoplasm of kidney; Z68.29 Body mass index [BMI] 29.0-29.9, adult; R06.03 Acute respiratory distress
CPT/HCPCS: 36415; 36600; 70486; 71045; 76770; 80048; 80053; 80076; 81001; 82140; 82150; 82435; 82550; 82570; 82728; 82746; 82803; 82947; 82948; 83036; 83540; 83550; 83605; 83690; 83735; 83880; 84100; 84132; 84145; 84156; 84295; 84439; 84443; 84481; 84550; 85018; 85025; 85027; 87086; 87426; 87804; 93306; 93356; 94760; 96365; 96375; 99285; G0378; J0696; J1644; J1815; J2270; J2919; J3475; J3490; J7030; J1308